=== PATIENT | male | born 1960 | race Caucasian/White ===

== ENCOUNTER 2024-08-19 10:03 | Emergency (ER) | payer MEDICAID, SELFPAY ==
[2024-08-19 10:04] VITALS: BP 148/76; PULSE 78; RESP 16; TEMP 37.1; O2SAT 97; BMI 23.0
--- NOTE | 2024-08-19 10:47 | CT_ITS ---
PROCEDURE: ABDOMEN/PELVIS WITH CONTRAST REASON FOR EXAM: 63-year-old male, fell down steps, anterior lower rib/right upper quadrant pain. TECHNIQUE: Abdomen and pelvis CT with intravenous contrast. No oral contrast. IV CONTRAST: Administered. COMPARISON: None. FINDINGS: Lung bases: The heart is normal in size. Bibasilar atelectasis. Liver: The liver is normal in size without focal hepatic mass. The major portal veins are patent. No biliary ductal dilation. Gallbladder: No radiopaque stones within the gallbladder. Spleen: Unremarkable. Pancreas: Diffuse pancreatic atrophy. Adrenals: Unremarkable. Kidneys: No hydronephrosis or nephrolithiasis. Bladder: Distended and unremarkable. Reproductive Organs: Unremarkable. Bowel: The bowel loops are normal in caliber. No ascites or pneumoperitoneum. Prior appendectomy. Lymph nodes: No suspicious lymph node enlargement. Vasculature: Moderate calcific plaque of the aortoiliac vessels. Bones: Thoracolumbar spondylosis. No acute osseous fracture. Soft tissues: Scattered radiodensities along the ventral abdominal wall, compatible with prior hernia repair. CT/Abdomen/Pelvis WITH Contrast IMPRESSION: UNREMARKABLE CONTRAST-ENHANCED CT OF THE ABDOMEN AND PELVIS One or more dose reduction techniques were used (e.g., Automated exposure contr ol, adjustment of the mA and/or kV according to patient size, use of iterative reconstruction technique). Reading Location: [id number]
--- NOTE | 2024-08-19 10:48 | RAD_ITS ---
PROCEDURE: ANKLE MIN 3 VIEWS REASON FOR EXAM: 63-year-old male, left ankle injury/pain, fell down steps. TECHNIQUE: 3 views of the left ankle COMPARISON: None FINDINGS: Comminuted mildly angulated left distal fibular fracture at the level of the syndesmosis. No obvious malleolar fracture. Probable widening of the left medial clear space. No suspicious bone lesion. No effusion. Mild left ankle soft tissue swelling. RAD/Ankle min 3 Views IMPRESSION: Esquivel type B (possibly unstable) left distal fibular fracture, with probable wi dening of the medial clear space.. Reading Location: [id number]
[2024-08-19 11:02] LABS: Absolute Lymphocyte Count 2.53 X10^3/uL (0.83-4.51); Absolute Neutrophil Count 5.8 X10^3/uL (2.0-7.7); Basophil# 0.09 X10^3/uL; Basophil% 0.9 % (0-1); Eosinophil# 0.31 X10^3/uL; Eosinophils% 3.2 % (0-5); Hematocrit 47.9 % (40-54); Hemoglobin 16.5 g/dL (13.0-16.5); Lymphocyte # 2.53 X10^3/ul (0.83-4.51); Lymphocyte % 25.8 % (19-41); Mean Corp Hgb Conc 34.4 g/dL (32-36); Mean Corpuscular Hgb 32.6 pg (27.0-32.0); Mean Corpuscular Volume 94.7 fL (80-94); Mean Platelet Vol. 10.4 fl (6.2-12.0); Monocyte# 1.08 X10^3/uL; NRBC Flagged by Analyzer 0 % (0-5); Neutrophil # 5.76 X10^3/uL (2.7-7.7); Neutrophil % 58.8 % (47-70); Platelet Count 201 K/mm3 (150-450); RBC Distribution Width CV 13.7 % (11.6-14.6); RBC Distribution Width SD 47.8 fl (35.1-43.9); Red Blood Count 5.06 M/mm3 (4.6-6.2); White Blood Count 9.8 K/mm3 (4.4-11.0)
[2024-08-19 11:18] LABS: Alcohol, Blood (Medical)-Serum < 3.0 mg/dL
[2024-08-19 11:19] LABS: AST(SGOT) 20 U/L (15-37); Alanine Aminotransfer ALT/SGPT 32 U/L (16-61); Albumin, Serum 3.5 g/dL (3.2-5.0); Alkaline Phosphatase 79 U/L (45-117); Anion Gap 7 (5-15); BUN 12 mg/dL (7-18); BUN/Creat Ratio 10.3 RATIO (10-20); Bilirubin, Direct 0.07 mg/dL (0.00-0.30); Calcium,Total 9.3 mg/dL (8.5-10.1); Chloride 107 mmol/L (98-107); Creatinine, Serum 1.17 mg/dL (0.70-1.30); EST Glomerular Filtration Rate 67 mL/min (>60); Est Glom Filt Rate - Afr Amer 81 mL/min (>60); Estimated Creatinine Clearance 70.19 ml/min; Globulin 3.9 g/dL (2.2-4.2); Glucose 143 mg/dL (74-106); Potassium 4.1 mmol/L (3.5-5.1); Protein, Total 7.4 g/dL (6.4-8.2); Sodium Level 140 mmol/L (136-145)
[2024-08-19] MEDS: Morphine 4 MG/ML Syringe IV (11:25)
[2024-08-19] MEDS: Ondansetron 4 MG/2 ML Vial IV (11:25)
--- NOTE | 2024-08-19 11:27 | EX.ED.GENINJ ---
HPI History of Present Illness Chief Complaint: Fall Detail of Chief Complaint: Patient fell twice last evening. This occurred at 99 Informant: patient and friend Onset/Context/Timing Onset: Today (99) Mechanism/Context: Blunt Injury and Fall (Fell down the last 3 steps going to the basement) Location of pain/injuries: Left ankle and - (Anterior lower ribs right costal margin and right upper quadrant) Quality of Pain: Burning and Throbbing Current Severity: Mild Maximum Severity: Severe Worsened by: Unable to bear weight. And pain right upper quadrant Relieved by: Nothing Associated Symptoms Associated Symptoms: Positive for Loss of function and Inability to ambulate; Negative for Parasthesias, Weakness, Loss of consciousness or Amnesia Narrative Narrative: Patient is a 63-year-old male. He was admitting to drinking. Initially states he has a little. Then he admitted to 1 pint of Civo a week. Apparently missed stepped third from the bottom. Ran into a brick wall. States he developed pain in his chest upper abdomen. He then slipped and fell again injuring his ankle. He is not been able to bear weight since the injury. He denies head trauma. Nu[place] loss of conscious. He is on no antithrombotic or anticoagulant. He denies bruising easily. He denies liver problems. Prior similar symptoms: No Recent Illness/Hospitalization: No PFSH PFSH Medical History no medical history no medical history Home Medications ?Medication ?Instructions ?Recorded ?Last Taken ?Type oxycodone-acetaminophen 5 mg-325 1 tab PO Q6H PRN PRN pain 5 days 08/19/24 Unknown Rx mg tablet #20 TABLETS Allergy/AdvReac Type Severity Reaction Status Date / Time No Known Allergies Allergy Verified 08/19/24 10:04 Family History no significant family his no significant family history Surgical History no surgical history no surgical history Social History (Updated 08/19/24 @ 12:[address] River Blackburn MD) Smoking Status: Current every day smoker tobacco type: cigarettes alcohol intake: current alcohol intake frequency: 0-2 drinks per day substance use type: does not use ROS ROS ED Constitutional Constitutional ED: Denies chills, fever(s) or subjective Eyes Eyes: Denies blurry vision or change in vision Cardiovascular Cardiovascular: Reports chest pain Respiratory/Chest Respiratory/Chest: Denies cough, dyspnea or dyspnea on exertion Gastrointestinal Gastrointestinal: Reports abdominal pain; Denies diarrhea, melena, nausea or vomiting Genitourinary Genitourinary ED: Denies hematuria Musculoskeletal Musculoskeletal: Denies arthralgias, back pain, myalgias or neck pain Integumentary Denies rash Neurologic Neurologic: Denies headache(s) Endocrine Endocrinology: Denies cold intolerance or heat intolerance Hematologic/Lymphatic Hematologic/Lymphatic: Denies easy bruising EXAM Physical Exam Const Vital Signs: 08/19/24 10:04 08/19/24 10:18 08/19/24 12:04 Temperature 98.7 F Temperature Source Oral Pulse Rate 78 89 Respiratory Rate 16 16 Respiratory Effort Normal Non-Labored Blood Pressure 148/76 H 124/78 H Blood Pressure Mean 100 93 Pulse Ox 97 98 Oxygen Delivery Method Room Air Room Air Room Air Positive well nourished and well developed Constitutional Narrative: Patient appears uncomfortable. Vital signs are marked for an elevated blood pressure. General Appearance ED: well developed HEENT Reports TM's clear HEENT Narrative: No clinical signs of basilar skull fracture. atraumatic; Negative for tenderness Nose: Negative for septum abnormal Tympanic Membrane ED: Yes TM's clear Eyes PERRL and EOMs intact bilaterally Neck full ROM General: Negative for tenderness Chest Wall inspection of chest normal and palpation of chest normal Chest Narrative: There is significant tenderness over the lower ribs mid clavicular line to posterior axillary line on the right. He has significant tenderness right costal margin and right upper quadrant. He has percussion tenderness in the right upper quadrant. There is no obvious bruising noted. Resp normal respiratory effort and clear to auscultation bilaterally Cardio regular rhythm, S1 normal heart sound, S2 normal heart sound and no murmurs Rate: regular rate GI normal to inspection, nondistended, normoactive bowel sounds, non-distended and no masses; Negative for non-tender Palpation: soft and tender RUQ Back/Spine normal to inspection and no thoracic nor lumbar tenderness Extremity Negative for normal to inspection or full ROM Extremity Narrative: There is obvious swelling with pain ovation over the lateral malleolus and over the deltoid ligament/medial malleolus. There is no pain ovation of the base of fifth metatarsal. There is bruising consistent with injury occurring several hours prior to presentation. DP and PT pulse are palpable. Neuro oriented x3, CN's II-XII intact bilaterally and moves all extremities Rony Coma Scale: document GCS findings Spontaneous Obeys Commands Oriented 15 Sensorium / Orientation: alert Plantar Reflex: Downgoing: bilateral Psych mental status grossly normal and thought process normal Skin no rashes or lesions noted, no wounds, skin turgor normal and no jaundice PROC Procedures Lower Extremity Splints Lower Extremity Splint: Plaster, Stirrup and - (Posterior short leg) Splint Fabrication: Fabricated Location: Left MDM MDM MDM Narrative Medical decision making narrative: Because patient has significant tenderness to right upper quadrant and took a fall down several steps we will obtain CT of the abdomen pelvis to assess for hepatic injury, fractured ribs, pneumothorax, hemothorax doubt renal contusion. X-ray of the ankle to determine if patient has a single bone versus multi bone fracture. He meets criteria for x-ray based on [place] ankle rule. Blood work was obtained to assess H&H, white count, renal function and since he admits to drinking daily alcohol level. Patient was medicated initially with 4 of Zofran and 4 of morphine. Patient required more morphine. Lab Data Attestation: I reviewed the patient's lab results. Lab results narrative: CBC is unremarkable. Basic metabolic panel is unremarkable. Liver enzymes are normal. Glucose is slightly elevated at 143 with a normal CO2 anion gap. Alcohol is nondetected. Labs: Laboratory Results - last 24 hr 08/19/24 10:50 WBC 9.8 RBC 5.06 Hgb 16.5 Hct 47.9 MCV 94.7 H MCH 32.6 H MCHC 34.4 RDW Std Deviation 47.8 H RDW Coeff of Pauly 13.7 Plt Count 201 MPV 10.4 Immature Gran % (Auto) 0.300 Neut % (Auto) 58.8 Lymph % (Auto) 25.8 Osborne % (Auto) 11.0 H Eos % (Auto) 3.2 Baso % (Auto) 0.9 Absolute Neuts (auto) 5.8 Absolute Lymphs (auto) 2.53 Nucleated RBC % 0 Sodium 140 Potassium 4.1 Chloride 107 Carbon Dioxide 26.0 Anion Gap 7 BUN 12 Creatinine 1.17 Estim Creat Clear Calc 70.19 Est GFR (MDRD) Af Amer 81 Est GFR (MDRD) Non-Af 67 BUN/Creatinine Ratio 10.3 Glucose 143 H Calcium 9.3 Total Bilirubin 0.20 Direct Bilirubin 0.07 AST 20 ALT 32 Alkaline Phosphatase 79 Total Protein 7.4 Albumin 3.5 Globulin 3.9 Ethyl Alcohol < 3.0 Radiography Chest X-Ray - ED: Read by ED Physician (Three-view x-ray of the left wrist reveals a spiral Esquivel B type distal fibular fracture with widening of the mortise. No other abnormality noted.) Diagnostic Testing: Clinical Impression(s) from Imaging Studies Abdomen/Pelvis CT 08/19/24 10:47 IMPRESSION: UNREMARKABLE CONTRAST-ENHANCED CT OF THE ABDOMEN AND PELVIS One or more dose reduction techniques were used (e.g., Automated exposure control, adjustment of the mA and/or kV according to patient size, use of iterative reconstruction technique). Reading Location: [facility] Ankle X-Ray 08/19/24 10:48 IMPRESSION: Esquivel type B (possibly unstable) left distal fibular fracture, with probable widening of the medial clear space.. Reading Location: [facility] CT of the abdomen and pelvis reveals no obvious lower rib fractures, pneumothorax, pneumoperitoneum, liver injury or kidney injury. Awaiting formal read by radiologist, [id number] Management Discussion w/another healthcare provider: Qualitative Executive Researcher (Spoke with Dr. Kaba on-call for podiatry. He would like patient in a posterior and sugar-tong splint. Crutches nonweightbearing. Call office on Tuesday for follow-up for surgery.) Discharge Plan Triage Chief Complaint: Fall ED Provider: River Blackburn Dx/Rx/DC Orders Clinical Impression: Fall down stairs, Ankle fracture, left, Acute traumatic injury of chest wall, Blunt abdominal trauma, Alcohol use, Tobacco use, Elevated blood-pressure reading without diagnosis of hypertension Instructions: ED Ankle Fracture Prescriptions: New oxycodone-acetaminophen 5-325 mg tablet 1 tab PO Q6H PRN PRN (Reason: pain) 5 Days Qty: 20 0RF Primary Care Provider: Emiliano Palomares Referrals: Emiliano Palomares MD [Primary Care Provider] - Activity Restrictions/Additional Instructions: 1. Must keep splint absolute clean and dry 2. Apply ice to your left ankle 6-10 times a day 3. Must elevate your ankle. Toes must be above your nose. 4. Call Dr. Kaba's office tomorrow for office visit to discuss treatment options Print Language: Dutch Disposition Disposition: Home, Self Care
[2024-08-19 12:04] VITALS: BP 124/78; PULSE 89; RESP 16; O2SAT 98
[2024-08-19] MEDS: morphine 8 MG/ML Syringe 4 MG IV ×2 (12:24→13:10)
[2024-08-19] MEDS: fentaNYL 100 MCG/2 ML Ampul 50 MCG IV (13:23)
[2024-08-19 14:00] VITALS: BP 117/81; PULSE 78; RESP 16; O2SAT 98
[2024-08-19] MEDS: oxyCODONE 5 MG Tablet PO (14:02)
[2024-08-19 14:48] VITALS: BP 134/78; PULSE 64; RESP 18; TEMP 36.6; O2SAT 99
== END 2024-08-19 14:49 | disposition home or self-care (01) ==
PROVIDERS: Emergency Provider Emergency Medicine; PCP Surgery Vascular Surgery; Visit Provider Emergency Medicine
DX: S82.832A Other fracture of upper and lower end of left fibula, initial encounter for closed fracture (principal); S29.9XXA Unspecified injury of thorax, initial encounter; S39.91XA Unspecified injury of abdomen, initial encounter; W10.8XXA Fall (on) (from) other stairs and steps, initial encounter; R03.0 Elevated blood-pressure reading, without diagnosis of hypertension; F10.90 Alcohol use, unspecified, uncomplicated; F17.210 Nicotine dependence, cigarettes, uncomplicated
CPT/HCPCS: 29515; 73610; 74177; 80048; 80076; 82077; 85025; 93005; 96374; 96375; 96376; 99285; Q9967; A4216; J2405

== ENCOUNTER 2024-08-31 11:26 | Day surgery (SDC) | payer MEDICAID, SELFPAY ==
[2024-08-31] VITALS (9 sets, daily range): BP systolic 113–131; BP diastolic 75–97; PULSE 80–89; RESP 14–18; TEMP 36.3–36.9; O2SAT 95–99; BMI 22.3
[2024-08-31] MEDS: 0.9% Normal Saline (1000mL) 1,000 ML 15 ML IV (11:50)
--- NOTE | 2024-08-31 12:00 | RAD_ITS ---
PROCEDURE: ANKLE 2 VIEWS REASON FOR EXAM: Open reduction and internal fixation of left fibular fracture. TECHNIQUE: Intraoperative imaging provided. COMPARISON: Comparison is made with prior study dated August 19, 2024. FINDINGS: Successful open reduction and internal fixation of the distal fibular fracture. RAD/Ankle 2 Views IMPRESSION: Successful open reduction and internal fixation of the distal fibular fracture. Reading Location: [facility]
--- NOTE | 2024-08-31 12:19 | PCM.DC ---
Discharge Instructions Diet Discharge Diet: No restrictions DC O2, CPAP, BIPAP needs Home O2 Discharge instructions: No Dressing / Incision Discharge Activity: May Drive (May drive once no longer taking narcotic medication.) and May Shower (May shower with cast bag covering intact to left leg to keep dressings clean, dry, and intact. Must also be seated on shower chair during shower.) Weight Bearing Status: No weight bearing (Please remain nonweightbearing to the left lower extremity with the assistance of crutches) Keep extremity elevated above heart level: Left Leg (Elevate left lower extremity at all times rest for postoperative edema control) Dressing / Incision Call your doctor if you observe: Fever of 101 or Higher, Shortness of breath, Chest pain, Calf discomfort and Uncontrolled pain Change Dressing in: do not change dressing Remove Dressing in: leave in place till F/U (Do not change dressing. Leave dressing in place until follow-up as physician will change dressing at first postoperative appointment.) Cleanse incision/area with: Do not get Incision Wet and Keep Dressing Clean & Dry (Keep all dressings clean, dry, and intact to the left lower extremity) Follow Up Care Please Follow Up With: Davis Kaba DPM When: Patient has first postoperative appointment with me in office early next week Test Results: Test results from this visit will be discussed in further detail at your follow-up appointment, if applicable. Discharge Plan Admission Attending Provider: Davis Kaba Primary Care Provider: Emiliano Palomares Instructions Print Language: Vietnamese Discharge Orders/Prescriptions Prescriptions: New doxycycline hyclate 100 mg capsule 100 mg PO DAILY Qty: 10 0RF aspirin 325 mg tablet 325 mg PO DAILY Qty: 20 0RF oxycodone-acetaminophen 5-325 mg tablet 1 tab PO Q6H PRN (Reason: pain) 7 Days Qty: 32 0RF No Action oxycodone-acetaminophen 5-325 mg tablet 1 tab PO Q6H PRN PRN (Reason: pain) 5 Days Qty: 20 0RF ibuprofen [Advil] 200 mg tablet 200 mg PO Q4H Referrals / Follow Up: Emiliano Palomares MD [Primary Care Provider] - Disposition Disposition (needs filled in before D/C Order can be placed): Home, Self Care
--- NOTE | 2024-08-31 12:29 | PRE.ANES_ITS ---
ASA Classification* ASA Classification ASA Classification: 3 Assessment & Plan Anesthesia* Anesthesia Assessment Anesthesia Assessment: Discussed sedation and/or anesthesia options, risks, benefits, and alternatives with patient/parents/legal guardian/POA. Questions invited. The patient/parents/legal guardian/POA seems to understand and agrees to proceed with anesthesia plan. Reviewed the physical assessment, medical history, allergy history and patient home medications list prior to surgery/procedure/anesthetic and documented any changes. Performed airway and anesthesia risk assessments. Anesthesia Type Anesthesia Type: General and Block (Patient is consented for pain block.) History Source History Obtained from:: Patient and Chart Anesthesia Focused Assessment* Temperature: 98.4 F Pulse Rate: 80 Blood Pressure: 131/81 Respiratory Rate: 16 Pulse Ox: 95 Oxygen Delivery Method: Room Air Airway Assessment Mouth opens: >3 cm Mallampati Score: II Teeth Condition: Dentures (Patient has full upper and lower dentures. They are out.) Neck Range of motion (ROM): Limited ROM (Somewhat decreased extension secondary to neck injury.) Focused Labs Anesthesia Preop lab: CBC WBC 9.8 K/mm3 (4.4-11.0) 08/19/24 10:50 08/19/24 RBC 5.06 M/mm3 (4.6-6.2) 08/19/24 10:50 08/19/24 Hgb 16.5 g/dL (13.0-16.5) 08/19/24 10:50 08/19/24 Hct 47.9 % (40-54) 08/19/24 10:50 08/19/24 Plt Count 201 K/mm3 (150-450) 08/19/24 10:50 08/19/24 CHEMISTRY Potassium 4.1 mmol/L (3.5-5.1) 08/19/24 10:50 08/19/24 Sodium 140 mmol/L (136-145) 08/19/24 10:50 08/19/24 BUN 12 mg/dL (7-18) 08/19/24 10:50 08/19/24 Creatinine 1.17 mg/dL (0.70-1.30) 08/19/24 10:50 08/19/24 Glucose 143 mg/dL (74-106) H 08/19/24 10:50 08/19/24 COAG Pre-Assessment Diagnosis/Proposed Procedure Planned Operative Procedure(s): OPEN REDUCTION INTERAL FIXATION OF THE LEFT FIBULAR FRACTURE WITH POSSIBLE REPAIR OF SYNDESMOSIS Anesthesia History Anesthesia History - precision millwright: Anesthesia History - precision millwright Hx Hospitalization No 08/28/24 15:22 Any Problems With Anesthesia Yes: HARD TO BE PUT TO SLEEP 08/28/24 15:22 Cholinesterase deficiency No 08/28/24 15:22 You/Your Family Experience No 08/28/24 15:22 fever (hyperthermia) with Relationship Recent Exposure to Contagious No 08/31/24 11:44 Disease Does patient have nerve No 08/28/24 15:22 stimulator Patient instructed to have device shut off --Does patient have Pacemaker No 08/31/24 11:44 or ICD? When Was Last Pacemaker Check QUESTION #4 FULL TEXT: You/Your Family Experience fever (hyperthermia) with Anesthesia Last Oral Intake Last Oral intake: Last Oral Intake NPO since 09:00 08/31/24 11:44 Meds taken in AM with sips of water? Meds patient instructed to take am of surgery Any additional information?: Yes NPO since: 09:00 (Patient had a cup of black coffee at 9 AM.) Meds taken in AM with sips of water?: No PONV PONV - precision millwright: PONV - precision millwright Female No 08/28/24 15:22 HX of Motion Sickness No 08/28/24 15:22 HX of N/V After Surgery No 08/28/24 15:22 Non-Smoker No 08/28/24 15:22 Duration of Surgery greater Yes 08/28/24 15:22 than 60 minutes Number of Risk Factors 1 08/28/24 15:22 PONV Score Low Risk 08/28/24 15:22 Height & Weight Height & Weight: Anesthesia: Height & Weight Height 5 ft 11 in 08/31/24 11:44 Weight: 72.575 kg 08/31/24 11:44 Body Mass Index (BMI) 22.3 08/31/24 11:44 Respiratory Assessment Respiratory Assessment - precision millwright: Respiratory Tract Infection Hx - precision millwright Hx Respiratory Tract Infection No 08/28/24 15:22 STOP Sleep Apnea STOP Sleep Apnea - precision millwright: STOP Sleep Apnea - precision millwright Hx Hypertension No 08/28/24 15:22 Hx Sleep Apnea No 08/28/24 15:22 CPAP BIPAP Do you snore loudly (louder No 08/28/24 15:22 than talking or can be heard Do you often feel tired/ No 08/28/24 15:22 fatigued/ sleepy during daytime? Has anyone observed you stop No 08/28/24 15:22 breathing during sleep? STOP Results Negative 08/28/24 15:22 QUESTION #5 FULL TEXT : Do you snore loudly (louder than talking or can be heard through closed doors)? 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 Specify any problems Hx of Preganancy in last 3 N/A 08/28/24 15:22 Months Nurse Filling Out Transfusion [id number] 08/28/24 15:22 & Questions: Date: 08/28/24 08/28/24 15:22 Time: 15:31 08/28/24 15:22 Patient unable to answer at this time (ie. confused, unrespo /Reproduction History /Reproductive History - precision millwright: /Reproductive Hx- precision millwright Hx Now No 08/28/24 15:22 Gestational Age (in weeks): EDC: Hx Hx Para Hx Section SAB No 08/28/24 15:22 Active Medications Active Medications: Current Medications Generic Name Dose Route Start Last Admin Trade Name Freq PRN Reason Stop Dose Admin Cefazolin Sodium 2 gm/ N/A 20 mls @ 400 mls/hr 08/31/24 13:00 IV 08/31/24 13:02 PREOP ONE Sodium Chloride 1,000 mls @ 15 mls/hr 08/31/24 11:35 08/31/24 11:50 IV 09/06/24 00:54 15 mls/hr .Q48H BAUTISTA Administration Protocol [facility] Medical History Wears dentures Wears glasses Alcohol use Smoker Rib pain Home Medications ?Medication ?Instructions ?Recorded ?Last Taken ?Type oxycodone-acetaminophen 5 mg-325 1 tab PO Q6H PRN PRN pain 5 days 08/19/24 Unknown Rx mg tablet #20 TABLETS ibuprofen 200 mg tablet (Advil) 200 mg PO Q4H 08/28/24 08/29/24 History aspirin 325 mg tablet 325 mg PO DAILY #20 tabs Unknown Rx doxycycline hyclate 100 mg capsule 100 mg PO DAILY #10 caps 08/31/24 Unknown Rx oxycodone-acetaminophen 5 mg-325 1 tab PO Q6H PRN pain 7 days #32 08/31/24 Unknown Rx mg tablet tabs Allergy/AdvReac Type Severity Reaction Status Date / Time No Known Allergies Allergy Verified 08/31/24 11:43 Surgical History (Updated 08/31/24 @ 12:[address] Sunny Cruz MD) Inguinal hernia S/P appendectomy Social History Smoking Status: Current every day smoker (Patient did not smoke today.) tobacco type: cigarettes alcohol intake: current alcohol intake frequency: 0-2 drinks per day substance use type: does not use Review of Systems (Anesthesia) ROS Narrative System reviewed and no additional complaints, except as documented.
[2024-08-31] MEDS: Cefazolin 2 GM in Syringe IV (14:12)
--- NOTE | 2024-08-31 16:18 | PCM.POST.ANE ---
Anesthesia: Postop Eval I Current Vital Signs Temperature: 97.5 F Pulse Rate: 86 Blood Pressure: 114/75 Respiratory Rate: 18 Pulse Ox: 96 Oxygen Delivery Method: Room Air Assessment Airway patent: Yes Spontaneous unlabored respirations: Yes Mental status: Awake and Calm nausea: No Vomiting: No Anesthesia Complication: No Fluid Hydration Crystalloid volume administer (ml): 1,400 Total IV fluid infused: 1,400 Progress Note Anesthesia document: Postop Eval 1 completed: Yes
--- NOTE | 2024-08-31 16:20 | RAD_ITS ---
PROCEDURE: ANKLE MIN 3 VIEWS REASON FOR EXAM: Status post ORIF of the distal fibular fracture. TECHNIQUE: 3 views of the left ankle COMPARISON: Comparison is made with prior study dated 02/20/2025. FINDINGS: Satisfactory reduction of the distal fibula fracture. RAD/Ankle min 3 Views IMPRESSION: Satisfactory reduction of the distal fibular fracture. Reading Location: [facility]
--- NOTE | 2024-08-31 16:57 | PCM.OPRPT ---
Problems Associated Problem List Diagnoses (1) Displaced fracture of lateral malleolus of left fibula, initial encounter for closed fracture: (2) Pain in left lower leg: (3) Nicotine dependence, unspecified, uncomplicated: (4) Alcohol use: Operative Report (Standard) Operative Information Date of Procedure: 08/31/24 Pre-Operative Diagnosis: 1. Displaced Fibular Fracture/Lateral Malleolar Fracture Left Ankle 2. Pain Left Leg Post-Operative Diagnosis: 1. Displaced Fibular Fracture/Lateral Malleolar Fracture Left Ankle 2. Pain Left Leg Surgery/Procedure Performed: 1. ORIF Left Fibular Fracture with FibuLock Nail 2. Application of AO splint left lower extremity assembler brazer: Yes Hat Presser: Dr. Jordan Quintero, DPM PGY-1 Tasks completed by housing assistant: Closing and Implanting device (screw placement) Type of Anesthesia: General/Regional (Popliteal block performed by anesthesia team) RN Documented Start/Stop Times: Operation Date: 08/31/24 13:00 Case Time Into Pre-Op 08/31/24 11:32 Out of Pre-Op 08/31/24 13:45 Anesthesia Start 08/31/24 13:59 Into Room 08/31/24 13:59 Procedure Start 08/31/24 14:26 Procedure End 08/31/24 16:02 Anesthesia End 08/31/24 16:12 Out of Room 08/31/24 16:12 Into Recovery 08/31/24 16:15 Out of Recovery 08/31/24 16:42 Into Phase II Recovery 08/31/24 16:43 Procedure Start Time: 14:26 Procedure Stop Time: 16:02 Select all DRAINS/GRAFTS/IMPLANTS that apply: Implanted device Implanted device details: Arthrex FibuLock Nail 3.0 x 130mm, Left; 2.7mm cortical screw x 3 - 14mm x2 and 24mm x1 Estimated Blood Loss: < 3mL Specimen collected: No Description of surgery: HPI/indication: This is a 63-year-old male who presented to office to 08/22/2024 with displaced left fibular fracture. He was seen in the ED at [facility] on 08/19/2024 after falling down his stairs in his basement late Tuesday night/early Tuesday morning around 1 AM. He did tell the ED physician at the time that he had been drinking prior to the fall and does smoke cigarettes daily. Radiographs were obtained in the ED demonstrating displaced SER 2/Esquivel B ankle fracture of the lateral malleolus. I was physician on-call at time of injury and discussed the case with the ED physician. He underwent closed reduction and was placed into a sugar-tong cast, dispensed crutches and was instructed to remain nonweightbearing to the left lower extremity. Patient had been compliant with the nonweightbearing status and in office updated radiographs were obtained demonstrating maintained reduction of his displaced fibular fracture. I discussed with the patient in office the need for surgical fixation of his fracture as this is an unstable pattern and would pose future complications if not surgically fixed. Patient does agree and is willing to proceed forward with the nonelective surgical intervention. I discussed the surgery in great detail with the patient. Discussed the typical postoperative recovery. Discussed the risks and complications with the patient. Advised the patient the risks include but are not limited to the following: Pain, continued pain, complex regional pain syndrome, deformity, continued deformity, recurrence, overcorrection, under correction, numbness/neuritis, swelling, scarring, poor cosmetic result, bleeding, need for further surgery/procedures, painful hardware, symptomatic hardware, fracture, nonunion, delayed union, nonhealing/delayed healing, dehiscence, infection, blood clot, allergic reaction, transfer lesion, postoperative arthritis, weakness, shoe gear problems, inability to walk, inability to wear shoes, stroke, heart attack, addiction to pain medication, loss of function, loss of limb, loss of life. Patient expressed understanding of these and was able to repeat these back. Surgical consent was signed at patient's free will. No promises were given. No guarantees were made. He underwent medical clearance by PCP. All diagnostic data was reviewed prior to entering the OR. He was scheduled to undergo ORIF of displaced fibular fracture of the left ankle at [facility] on 08/31/2024. Patient was seen prior to surgery and operative limb was signed. Procedure: Under mild sedation patient was brought into the operating placed on the table in supine position. Popliteal block was then performed by the anesthesia team prior to surgical intervention. Patient was secured to table with safety belt. Following induction of general anesthetic a blanket bump was placed under the left hip and the left leg was elevated via a blanket bump. Pneumatic thigh tourniquet was placed about the patient's left thigh. The foot/leg was scrubbed, prepped, and draped in the usual aseptic manner. Esmarch bandage was utilized to exsanguinate the foot/leg and leg was elevated and the pneumatic thigh tourniquet was inflated to 300 mmHg. At this time attention was directed to the left leg at the lateral ankle where fluoroscopy was utilized to confirm level of the fracture and for incision placement. It is noted on fluoroscopic imaging that there is a displaced SER 2/Esquivel B fracture of the distal fibula at the level of the ankle mortise. Digits were covered utilizing sterile Coban prior to incision placement. A linear incision was made overlying the distal portion of the lateral malleolus utilizing a #15 blade. Incision was deepened via sharp and blunt dissection. Care was taken to identify and retract all vital neurovascular structures and protected throughout the duration of the case. Periosteum was then incised at the fracture site and the fracture was debrided/evacuated of hematoma and small osseous fragments utilizing a curette. Fracture site was then flushed with copious amounts of normal sterile saline. Next, a fracture reduction clamp was utilized to reduce fracture and was viewed in multiple fluoroscopic views. With temporary reduction in place a guidewire was inserted from distal to proximal down the fibular canal utilizing fluoroscopy for guidance. Utilizing AO principle and manufacture guidelines an Arthrex FibuLock Nail 3.0 x 130 mm was inserted into the left fibula. Next, the anchor system was deployed proximally in the distal nail was locked into position utilizing 2.7 mm cortical screws following AO principle. Screws placed laterally through the intramedullary nail via FibuLock guide were 2.7x 14 mm cortical screw x 2. Following lateral screw placement A to P screw was placed through the fibular nail utilizing 2.7 x 24 mm cortical screw. Site was again flushed with copious amounts of normal sterile saline. Next, a hook test was utilized to test syndesmotic instability under live fluoroscopy and none was noted. Final fluoroscopic images were obtained in multiple views confirming successful reduction of the previous displaced fibular fracture. The deep tissues were then closed utilizing 2-0 Vicryl. The subcutaneous tissue closed utilizing a 4-0 Monocryl. The skin was then reapproximated utilizing 3-0 Prolene in simple interrupted fashion. Pneumatic thigh tourniquet was deflated and a prompt hyperemic response was noted to the digits of the left foot. Incision site was then dressed utilizing Betadine soaked Adaptic, 4 x 4 gauze, Kerlix, Webril cast padding, 4 inch Kendrick wrap, and 6 inch Kendrick wrap. A well molded AO splint was then applied to the left lower extremity and anchored with a 4 inch and 6 inch Kendrick wrap and modified Griffin compression fashion. Patient tolerated the anesthesia and procedure well and was transported to PACU with vital signs stable and vascular status intact to the left foot. Immediate postoperative films were obtained in PACU and reviewed prior to leaving. Patient was given discharge instructions outlining postoperative care. He is to continue to remain nonweightbearing to the left lower extremity with the assistance of crutches. He is also to continue to elevate lower extremity at all times of rest for postoperative edema control. He is to keep all dressings clean, dry, and intact to the left lower extremity and utilize cast bag when showering while seated on shower chair to remain compliant with nonweightbearing and dry dressing status. He will take all postoperative medication as instructed. He will then follow with me in office for postoperative care next week. Surgical Findings: See operative note for findings Complications Complications: No Admit VTE Documentation VTE Present on Admission: No VTE Mechan Device Prophylaxis: SCD's VTE Pharm Prophylaxis ordered?: Yes
--- NOTE | 2024-08-31 18:43 | POSTOPAN2_ITS ---
Anesthesia Postop Eval I Sum Postop Eval Completion status Anesthesia document: Postop Eval 1 completed: Yes Anesthesia Postop Eval I Summary Anesthesia Postop Eval I Summary: Anesthesia Postop Eval I: Assessment Summary Airway patent Yes 08/31/24 16:19 [email or web address] Spontaneous unlabored Yes 08/31/24 16:19 APPRAISER [email or web address] respirations Mental status Awake,Calm 08/31/24 16:19 APPRAISER [email or web address] nausea No 08/31/24 16:19 APPRAISER [email or web address] Vomiting No 08/31/24 16:19 APPRAISER [email or web address] Anesthesia Postop Eval I: Fluid Summary Crystalloid volume administer 1,400 08/31/24 16:19 APPRAISER [email or web address] (ml) Colloids volume administered ( ml) Blood Product volume administered (ml) Total IV fluid infused 1,400 08/31/24 16:19 APPRAISER [email or web address] Anesthesia Postop Eval I: Summary Notes Anesthesia Complication No 08/31/24 16:19 APPRAISER [email or web address] Anesthesia Complication Comment: Post-operative progress note Anesthesia: Postop Eval II Evaluation Mental status: Awake and Calm Pain Level: 1 nausea: No Vomiting: No Complications Anesthesia Complication: No
--- NOTE | 2024-08-31 18:43 | PCM.POSTANE2 ---
Anesthesia Postop Eval I Sum Postop Eval Completion status Anesthesia document: Postop Eval 1 completed: Yes Anesthesia Postop Eval I Summary Anesthesia Postop Eval I Summary: Anesthesia Postop Eval I: Assessment Summary Airway patent Yes 08/31/24 16:19 RELEASE OF INFORMATION [email or web address] Spontaneous unlabored Yes 08/31/24 16:19 RELEASE OF INFORMATION [email or web address] respirations Mental status Awake,Calm 08/31/24 16:19 RELEASE OF INFORMATION [email or web address] nausea No 08/31/24 16:19 RELEASE OF INFORMATION [email or web address] Vomiting No 08/31/24 16:19 RELEASE OF INFORMATION [email or web address] Anesthesia Postop Eval I: Fluid Summary Crystalloid volume administer 1,400 08/31/24 16:19 RELEASE OF INFORMATION [email or web address] (ml) Colloids volume administered ( ml) Blood Product volume administered (ml) Total IV fluid infused 1,400 08/31/24 16:19 RELEASE OF INFORMATION [email or web address] Anesthesia Postop Eval I: Summary Notes Anesthesia Complication No 08/31/24 16:19 RELEASE OF INFORMATION [email or web address] Anesthesia Complication Comment: Post-operative progress note Anesthesia: Postop Eval II Evaluation Mental status: Awake and Calm Pain Level: 1 nausea: No Vomiting: No Complications Anesthesia Complication: No
== END 2024-08-31 17:35 | disposition home or self-care (01) ==
LOC: SDC 11:27 → AC 11:28
PROVIDERS: PCP Surgery Vascular Surgery; Referring Provider Student in an Organized Health Care Education/Training Program; Visit Provider Student in an Organized Health Care Education/Training Program
PROC: (CPT 27792; principal; 2024-08-31 12:40)
DX: S82.62XA Displaced fracture of lateral malleolus of left fibula, initial encounter for closed fracture (principal); W00.1XXA Fall from stairs and steps due to ice and snow, initial encounter; Y92.038 Other place in apartment as the place of occurrence of the external cause; F17.210 Nicotine dependence, cigarettes, uncomplicated; F10.90 Alcohol use, unspecified, uncomplicated
CPT/HCPCS: 27792; 64450; 73600; 73610; 76000; C1713; J2405

== ENCOUNTER → 2024-09-27 | Outpatient (CLI) | payer MEDICAID, SELFPAY | END | disposition home or self-care (01) | LOC: LABSPEC 16:38 | PROVIDERS: PCP Surgery Vascular Surgery; Visit Provider Student in an Organized Health Care Education/Training Program | DX: L97.222 Non-pressure chronic ulcer of left calf with fat layer exposed (principal) | CPT/HCPCS: 87070; 87077; 87186; 87205 ==

== ENCOUNTER 2024-10-25 10:30 | Outpatient (RCR) | payer MEDICAID, SELFPAY ==
[2024-10-11 10:58] VITALS: BP 132/86; PULSE 76; RESP 16; TEMP 36.6
--- NOTE | 2024-10-11 13:42 | PCM.WC.HP ---
History of Present Illness Date of Service: 10/11/24 Chief Complaint: Left lateral ankle ulceration History of Wound: Patient is a 63-year-old male who presents to the wound care center for continued care of his left lateral lower extremity ulceration secondary to dehiscence of surgical wound related to venous insufficiency/varicosity in the regional area. He did undergo ORIF of the left lateral malleolus on 08/31/2024 at [facility]. Due to continued edema and varicose vein he did experience irritation of this vein around the surgical site which did lead to dehiscence at the most distal portion of the incision site. He did undergo 3 weeks of local wound care prior to presentation to the wound center on 10/11/2024. At that time Denise was being applied with serial debridement performed weekly. There was also cultures obtained demonstrating E. coli and he had completed course of oral doxycycline and is finishing oral ciprofloxacin. He does state that the site is tender and does cause some discomfort if continued irritation is present. He does attempt to elevate lower extremity at times of rest to aid in his edema control. He denies N/V/F/chills. Denies further complaints. [facility] Medical History (Updated 10/11/24 @ 17:[address] Davis Kaba, DANIELLA) Wears dentures Wears glasses Alcohol use Smoker Rib pain Home Medications ?Medication ?Instructions ?Recorded ?Last Taken ?Type ibuprofen 200 mg tablet (Advil) 200 mg PO Q4H 08/28/24 08/29/24 History doxycycline hyclate 100 mg capsule 100 mg PO DAILY #10 caps 08/31/24 Unknown Rx ciprofloxacin HCl 500 mg tablet 500 mg PO BID 10/11/24 Unknown History gabapentin 100 mg capsule 100 mg PO TID 10/11/24 Unknown History Allergy/AdvReac Type Severity Reaction Status Date / Time No Known Allergies Allergy Verified 10/11/24 11:23 Surgical History (Updated 08/31/24 @ 12:[address] Sunny Cruz MD) Inguinal hernia S/P appendectomy Social History Smoking Status: Current every day smoker tobacco type: cigarettes alcohol intake: current alcohol intake frequency: 0-2 drinks per day substance use type: does not use ROS Constitutional Constitutional: Denies chills, fatigue or fever(s) Eyes Eyes: Denies blurry vision, change in vision or double vision ENT HEENT: Denies dysphagia, nasal congestion or nasal discharge Cardiovascular Cardiovascular: Denies chest pain, claudication or palpitations Respiratory/Chest Respiratory/Chest: Denies cough, shortness of breath at rest or wheezing Gastrointestinal Gastrointestinal: Denies abdominal pain, constipation, diarrhea, nausea or vomiting Genitourinary Genitourinary: Denies dysuria, hematuria or urinary urgency Musculoskeletal Musculoskeletal: Denies joint pain, joint stiffness or joint swelling Integumentary Integumentary: Denies jaundice, lesions, pruritus or rash Neurologic Neurologic: Denies dizziness, numbness or seizures Psychiatric Psychiatric: Denies anxiety or depression Endocrine Endocrinology: Denies cold intolerance or heat intolerance Hematologic/Lymphatic Hematologic/Lymphatic: Denies easy bleeding or easy bruising Vital Signs Vital Signs Vital Signs: 10/11/24 10:58 Temperature 97.8 F Temperature Source Temporal Pulse Rate 76 Respiratory Rate 16 Blood Pressure 132/86 H Blood Pressure Mean 101 Blood Pressure Source Monitor Physical Exam Const alert, oriented x3 and no apparent distress General Appearance: cooperative HEENT normocephalic Eyes General Eye: normal appearance of both eyes Neck General: normal visual inspection Lymph Lymphatic: no lymphadenopathy noted and no lymphedema noted Resp normal respiratory effort Cardio regular rate and regular rhythm Extremity no calf tenderness Extremity Narrative: Left lower extremity: Vascular: DP and PT pulses palpable. CFT is less than 4 seconds in digits. Normal temperature gradient. Hair growth is diminished to lower legs/absent to digits. Neurologic: Epicritic sensation intact. No focal deficits noted. Musculoskeletal: Muscle strength 5 of 5 age-appropriate. No pain to palpation of calf. There is some tenderness to palpation around the ulcerative rim at the distal incision site. Still some residual tenderness to palpation overlying the fracture site at the lateral malleolus. Dermatologic: There are varicosities noted to the lower extremity with some edema noted. Cicatrix to the lateral ankle with distal portion of dehiscence secondary to irritated varicose vein. Ulceration at the distal aspect of the incision site is full-thickness with mixed fibrogranular layer. There is improvement in localized erythema about the ulcerative site from previous visit. No palpable fluctuance/bogginess, no visible abscess formation, no malodor, no purulent drainage. Skin no rashes or lesions noted Neuro moves all extremities Debridement Note Debridement Note Wound debrided: Left lateral ankle Laterality: Left Wound Grade/Stage: Gilmore stage I Type of Debridement: Excisional debridement Anesthesia Used: 5% Lidocaine Gel Depth: Down to and including healthy tissue and in the subcutaneous layer Percentage of wound debrided: 100 Instrument Used: 3mm curette Tissue Removed: Fibrous, devitalized subcutaneous, biofilm, slough Severity: Fat Layer Exposed Amount of bleeding with debridement: Mild Bleeding Controlled with: Compression and gauze Patient tolerated procedure: Patient tolerated procedure well Post-Debridement Measurements and Additional Note: Post-Debridement Measurements/Treatment - Nurse 1 - General Ulcer Assessment Start: 10/11/24 10:58 Freq: Status: Active Protocol: JAIRON Activity Type Activity Date Activity User E-sign Co-sign Detail Recorded Client Recorded Date Recorded By Document 10/11/24 10:58 DL [id number] 10/11/24 11:17 DL 10/11/24 10:58 - Today's Visit Information Type of service Initial Visit Arrival Mode Ambulatory Transfer Assistance None Patient Identification Verified (Name & Yes ) Patient Requires Transmission-Based No Precautions Vital Signs Temperature (97.8 F-99.1 F) 97.8 F Temperature Source Temporal Pulse Rate (60-100) 76 Pulse Location Monitor Respiratory Rate (12-18) 16 Respiratory rate source Observation Blood Pressure (90/60-120/80) 132/86 H Blood Pressure Mean 101 Source Monitor History Since Last Visit- (Skip if this is Patient's initial visit) Left Footwear Removable Cast Walker/Walking Boot Right Footwear Regular Shoe Pain Scale: 0-10 Numeric Is Patient Pain Free? Yes Communication Assessment Preferred language Kiswahili Able to Read Yes Able to Write Yes Communication Tools None Right Hearing Abillity Normal Left Hearing Abillity Normal Visual Assistive Devices Glasses Teaching Assessment Preferences Demonstration Barriers to Learning None Readiness To Learn Fair Willingness to Engage in Self Management Med Activies Readiness to Engage in Self Management Med Activities Anxiety Level Anxious Cooperation Cooperative Perception Coherent Interest in Health Problem Asks Questions Education Importance Acknowledges Need Does Patient Smoke tobacco or other Yes substances Smoking Status Current every day smoker Is Patient Diabetic No Functional Assessment Recent Decline in Ability to Perform Ambulation Culture/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 Paperboard Boxes Estimator to contact place of baptism No Teaching: Wound Center Dressing Your Wound -Person Taught Patient *Welcome to the Wound Center -Person Taught Patient WC - Nurse 1 - General Ulcer Measurement Start: 10/11/24 10:58 Freq: Status: Active Protocol: Activity Type Activity Date Activity User E-sign Co-sign Detail Recorded Client Recorded Date Recorded By Document 10/11/24 10:58 KYLAH [id number] 10/11/24 11:17 DL 10/11/24 10:58 Wound Center Nurse 1 #1 L LAT ANKLE -Current Size (cm) - Length 1.6 -Current Size (cm) - Width 0.7 -Current Size (cm) - Depth 0.5 -Total Square Cm 1.12 -Photo Taken Yes -Classification - Thickness Full Thickness without Exposed Support Structure -Exudate Amt Medium -Exudate Type Serosanguineous -Wound Margin Distinct, Outline Attached -Granulation Amt Medium (34-66%) -Granulation Quality Red -Necrosis Amt Medium (34-66%) -Necrotic Tissue Type Adherent Slough -Structure Exposed N/A -Texture (Viry-wound Skin Appearance) Scarring -Moisture (Viry-wound Skin Appearance) No Abnormality -Color (Viry-wound Skin Appearance) No Abnormality -Temperature (Viry-wound Skin No Abnormality Appearance) (Pt Warm) -Tenderness on Palpation (Viry-wound No Skin Appearance) -Ulcer Cleansing Soap and Water -Foul Odor after Cleansing No -Anesthetic Used 5% Lidocaine Gel KAT - Nurse 2 - General Ulcer CM Notes Start: 10/11/24 10:58 Freq: Status: Active Protocol: Activity Type Activity Date Activity User E-sign Co-sign Detail Recorded Client Recorded Date Recorded By Document 10/11/24 11:32 [facility] [id number] 10/11/24 11:48 [facility] 10/11/24 11:32 Wound Center Nurse 2 -Time 11:33 -Correct Patient Yes -Correct Side, Site, Position Yes -Correct Procedure Yes -Procedure Performed Yes -Type of Procedure Debridement -Clinical Debridement Subcutaneous -Tissue Removed Subcutaneous -Post Debridement (cm) - Length 1.5 -Post Debridement (cm) - Width 0.7 -Post Debridement (cm) - Depth 0.6 -Total Square (Post) (cm) 1.05 -Area of Debridement (cm) - Length 1.5 -Area of Debridement (cm) - Width 0.7 -Total Square (Area) (cm) 1.05 -Tunneling No -Undermining/Tunneling No -Circular Undermining No -Wound/Ulcer Outcome Not Healed -Ulcer Cleansing Rinsed/ Irrigated with Saline -Foul Odor after Cleansing No -Injectable Lidocaine w/ Epi (%) 1 -Injectable Lidocaine w/ Epi (mls) 4 -Bleeding Controlled with Pressure -Treatment Response Procedure Tolerated Well -Debridement - Subq, 1st 20sq cm Yes Pain Scale: 0-10 Numeric Is Patient Pain Free? Yes WC - Nurse 3 - General Ulcer D/C NN Start: 10/11/24 10:58 Freq: Status: Active Protocol: Activity Type Activity Date Activity User E-sign Co-sign Detail Recorded Client Recorded Date Recorded By Document 10/11/24 12:00 DL [id number] 10/11/24 12:03 DL 10/11/24 12:00 Wound Care Center Nurse 3 #1 L LAT ANKLE -Ulcer Cleansing Rinsed/ Irrigated with Saline -Primary Dressing Applied C Hydrogel, Collagen Powder ,Silicone Border Foam 4x4 -Other Covering SHARON -Collagen Powder 1 -Hydrogel 1 -Silicone Border Foam 4x4 1 Treatment Response Procedure Tolerated Well Pain Scale: 0-10 Numeric Is Patient Pain Free? No WC - Visit Discharge Discharge Condition Stable Ambulatory Status Ambulatory, Crutches Transportation Private Auto Assessment/Plan Assessment/Plan (1) Displaced fracture of lateral malleolus of left fibula, subsequent encounter for closed fracture with routine healing: CODE(S): S82.62XD - Displaced fracture of lateral malleolus of left fibula, subsequent encounter for closed fracture with routine healing (2) Non-pressure chronic ulcer of left ankle with fat layer exposed: CODE(S): L97.322 - Non-pressure chronic ulcer of left ankle with fat layer exposed (3) Venous insufficiency (chronic) (peripheral): CODE(S): I87.2 - Venous insufficiency (chronic) (peripheral) (4) Localized edema: CODE(S): R60.0 - Localized edema PLAN: Plan Patient seen and evaluated He is s/p ORIF of the distal fibula with intramedullary wyatt fixation. DOS 08/31/2024. POD #41 Predebridement measurement: 1.4 cm x 0.6 cm x 0.6 cm Ulceration was debrided as noted in the clinical panel above. Postdebridement measurement 1.5 cm x 0.7 cm x 0.6 cm. Collagen powder and hydrogel applied to the ulcerative bed and dressed with [place]on SAP dressing. He is to change dressing daily. There is noted improvement in his erythema around the ulcerative bed from his previous visit in office on oral antibiotic, ciprofloxacin 500 mg twice daily (stop date 10/18/2024). Patient did have cultures obtained in office which demonstrate E. coli. He did finish his oral antibiotic of doxycycline prior to starting the ciprofloxacin. Discussed continuing to elevate lower extremities at all times of rest to aid in edema control. Discussed keeping site clean and dry and to wash with soap and water separate from his shower. He is to keep dressing intact while showering to prevent infection. We will seek approval of advanced wound care product, EpiFix as his ulceration has been caused by an irritated varicose vein along his incision site in addition to edema from chronic venous stasis. Discussed continued proper diet with protein intake recommended to aid in wound healing. Cuco supplementation/boost supplementation have been recommended. He is also currently taking gabapentin 100 mg 3 times daily for associated nerve pain in addition to ibuprofen 800 mg every 4 to 6 hours for wound pain. Rx ibuprofen 800 mg prescription written today with 3 refills given. I did discuss signs and symptoms of infection with the patient today. Discussed that if he notices increasing redness around the ulcerative site, purulent drainage from the ulcerative bed, increasing foul odor from the ulcerative site, or if he experiences fever greater than 101 degree accompanied by nausea, vomiting, chills that these are signs of a progressing infection and he should report to the ED for IV antibiotics and for further evaluation. He voices understanding of this today. Currently patient is healing the fracture site well and is still ambulating in CAM boot. Plan will be to transition patient back to shoe gear as he is roughly 6 weeks out from placement of his intramedullary wyatt. I have also discussed with the patient the need for smoking cessation to aid in his healing. The following work up and care recommendations were made: Dressing: Collagen powder topped with hydrogel and dressed with Mendon SAP dressing. He is to change dressing daily Wash: May wash site with soap and water that is separate from routine shower/shower rag. Tissue growth optimization: Collagen powder and hydrogel Offload: SAP XL dressing and do not place pressure on lateral ankle Vascular: Does have palpable pedal pulses do not feel vascular is impacting healing status. Do feel that venous stasis has contributed to ulcerative site. Edema: Mild edema secondary to chronic venous stasis will continue to elevate lower extremity at all times of rest and eventual transition to a compression stocking. Infection: There is resolving erythema around the ulcerative site currently taking ciprofloxacin as stated above. Pain: Currently on ibuprofen 800 mg and gabapentin 300 mg daily as stated above. Host factors: Chronic venous stasis, nicotine dependence I answered all the patient's questions. To return to the wound healing center in 1 week or call sooner if the patient has any questions or concerns.
--- NOTE | 2024-10-15 14:33 | WC ---
PHOTO 10/11/24 LEFT LATERAL ANKLE
[2024-10-18 11:45] VITALS: BP 133/92; PULSE 82; RESP 18; TEMP 36.7
--- NOTE | 2024-10-18 12:49 | PN.PCM_ITS ---
History of Present Illness Date of Service: 10/18/24 Chief Complaint: Left lateral ankle ulceration History of Wound: Patient is a 63-year-old male who presents to the wound care center for continued care of his left lateral lower extremity ulceration secondary to dehiscence of surgical wound related to venous insufficiency/varicosity in the regional area. He did undergo ORIF of the left lateral malleolus on 08/31/2024 at [facility]. Due to continued edema and varicose vein he did experience irritation of this vein around the surgical site which did lead to dehiscence at the most distal portion of the incision site. He did undergo 3 weeks of local wound care prior to presentation to the wound center on 10/11/2024. At that time Denise was being applied with serial debridement performed weekly. There was also cultures obtained demonstrating E. coli and he had completed course of oral doxycycline and is finishing oral ciprofloxacin. He does state that the site is tender and does cause some discomfort if continued irritation is present. He does attempt to elevate lower extremity at times of rest to aid in his edema control. He denies N/V/F/chills. Denies further complaints. Subjective Subjective Patient is a 63-year-old male who returns to the wound care center today for continued healing of his left ankle ulceration. He continues to take his oral antibiotic as instructed. Has continue to change dressings as instructed. Denies constitutional symptoms. Denies further complaints. Objective Data Objective Data Vital Signs: Vital Signs Temp Pulse Resp BP 98.1 F 82 18 133/92 H 10/18/24 11:45 10/18/24 11:45 10/18/24 11:45 10/18/24 11:45 Physical Exam Const alert, oriented x3 and no apparent distress General Appearance: cooperative HEENT normocephalic Eyes General Eye: normal appearance of both eyes Neck General: normal visual inspection Lymph Lymphatic: no lymphadenopathy noted and no lymphedema noted Resp normal respiratory effort Cardio regular rate and regular rhythm Extremity no calf tenderness Extremity Narrative: Left lower extremity: Vascular: DP and PT pulses palpable. CFT is less than 4 seconds in digits. Normal temperature gradient. Hair growth is diminished to lower legs/absent to digits. Neurologic: Epicritic sensation intact. No focal deficits noted. Musculoskeletal: Muscle strength 5 of 5 age-appropriate. No pain to palpation of calf. There is some tenderness to palpation around the ulcerative rim at the distal incision site. Still some residual tenderness to palpation overlying the fracture site at the lateral malleolus. Dermatologic: There are varicosities noted to the lower extremity with some edema noted. Cicatrix to the lateral ankle with distal portion of dehiscence secondary to irritated varicose vein. Ulceration at the distal aspect of the incision site is full-thickness with mixed fibrogranular layer. There is improvement in localized erythema about the ulcerative site from previous visit. No palpable fluctuance/bogginess, no visible abscess formation, no malodor, no purulent drainage. Skin no rashes or lesions noted Neuro moves all extremities Debridement Note Debridement Note Wound debrided: Left lateral ankle Laterality: Left Wound Grade/Stage: Gilmore stage I Type of Debridement: Excisional debridement Anesthesia Used: 5% Lidocaine Gel Depth: Down to and including healthy tissue and in the subcutaneous layer Percentage of wound debrided: 100 Instrument Used: 3mm curette Tissue Removed: Fibrous, devitalized subcutaneous, biofilm, slough Severity: Fat Layer Exposed Amount of bleeding with debridement: Mild Bleeding Controlled with: Compression and gauze Patient tolerated procedure: Patient tolerated procedure well Post-Debridement Measurements and Additional Note: Post-Debridement Measurements/Treatment - Nurse 1 - General Ulcer Assessment Start: 10/11/24 10:58 Freq: Status: Active Protocol: JAIRON Activity Type Activity Date Activity User E-sign Co-sign Detail Recorded Client Recorded Date Recorded By Document 10/11/24 10:58 DL [id number] 10/11/24 11:17 DL Document 10/18/24 11:45 RB [id number] 10/18/24 11:52 RB 10/11/24 10/18/24 10:58 11:45 - Today's Visit Information Type of service Initial Visit Follow-up Visit (Physician/[employer] ) Arrival Mode Ambulatory Ambulatory, Crutches Transfer Assistance None None Patient Identification Verified (Name & Yes Yes ) Patient Requires Transmission-Based No No Precautions Vital Signs Temperature (97.8 F-99.1 F) 97.8 F 98.1 F Temperature Source Temporal Temporal Pulse Rate (60-100) 76 82 Pulse Location Monitor Monitor Respiratory Rate (12-18) 16 18 Respiratory rate source Observation Observation Blood Pressure (90/60-120/80) 132/86 H 133/92 H Blood Pressure Mean (mm Hg) 101 105 Source Monitor Monitor Position Semi-Fowlers Blood Pressure Location Left Arm History Since Last Visit- (Skip if this is Patient's initial visit) Have you changed medications since your No last visit? Any new allergies or adverse reactions No Had a fall/change in ADL's that may No increase risk of falls Signs or symptoms of abuse and/or No neglect since last visit Have you been in the hospital since your No last visit? Has dressing in place as prescribed Yes Has compression in place as prescribed Yes Has offloadiing in place as prescribed N/A Experienced any changes in pain level or No management Left Footwear Removable Cast Multipodus Walker/Walking Splint/Boot Boot Right Footwear Regular Shoe Regular Shoe Pain Scale: 0-10 Numeric Is Patient Pain Free? Yes Yes LLE -Description Aching -Intensity 7 -Duration (hours) Acute -Pain Behavior Irritability -Pain Aggravating Factors ADL's -Alleviating Factors/Interventions Medication -Effectiveness of Alleviating Factor/ Moderately Intervention effective Communication Assessment Preferred language Danish Able to Read Yes Able to Write Yes Communication Tools None Right Hearing Abillity Normal Left Hearing Abillity Normal Visual Assistive Devices Glasses Teaching Assessment Preferences Demonstration Barriers to Learning None Readiness To Learn Fair Willingness to Engage in Self Management Med Activies Readiness to Engage in Self Management Med Activities Anxiety Level Anxious Cooperation Cooperative Perception Coherent Interest in Health Problem Asks Questions Education Importance Acknowledges Need Does Patient Smoke tobacco or other Yes substances Smoking Status Current every day smoker Is Patient Diabetic No Functional Assessment Recent Decline in Ability to Perform Ambulation Culture/Adventism/Youtuber Cultural/Adventism Needs that may affect No Treatment Plan Would you allow 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 Youtuber to contact place of christian No Teaching: Wound Center Dressing Your Wound -Person Taught Patient *Welcome to the Wound Center -Person Taught Patient WC - Nurse 1 - General Ulcer Measurement Start: 10/11/24 10:58 Freq: Status: Active Protocol: Activity Type Activity Date Activity User E-sign Co-sign Detail Recorded Client Recorded Date Recorded By Document 10/11/24 10:58 DL [id number] 10/11/24 11:17 DL Document 10/18/24 11:45 RB [id number] 10/18/24 11:52 RB 10/11/24 10/18/24 10:58 11:45 Wound Center Nurse 1 #1 L LAT ANKLE -Combined with other wound No -Current Size (cm) - Length 1.6 1 -Current Size (cm) - Width 0.7 0.5 -Current Size (cm) - Depth 0.5 0.7 -Total Square Cm 1.12 0.5 -Photo Taken Yes -Tunneling No -Undermining/Tunneling No -Circular Undermining No -Classification - Thickness Full Thickness without Exposed Support Structure -Exudate Amt Medium -Exudate Type Serosanguineous -Wound Margin Distinct, Outline Attached -Granulation Amt Medium (34-66%) Medium (34-66%) -Granulation Quality Red [place] -Slough/Fibrin Yes -Necrosis Amt Medium (34-66%) Small (1-33%) -Necrotic Tissue Type Adherent Slough Adherent Slough -Structure Exposed N/A N/A -Texture (Viry-wound Skin Appearance) Scarring Assessed, Scarring -Moisture (Viry-wound Skin Appearance) No Abnormality Assessed -Color (Viry-wound Skin Appearance) No Abnormality Assessed -Temperature (Viry-wound Skin No Abnormality No Abnormality Appearance) (Pt Warm) (Pt Warm) -Tenderness on Palpation (Viry-wound No No Skin Appearance) -Ulcer Cleansing Soap and Water Wound Cleanser -Foul Odor after Cleansing No No -Anesthetic Used 5% Lidocaine 5% Lidocaine Gel Gel Lower Limb Edema Present Yes Left Calf (cm) 36 Left Ankle (cm) 22.5 WC - Nurse 2 - General Ulcer CM Notes Start: 10/11/24 10:58 Freq: Status: Active Protocol: Activity Type Activity Date Activity User E-sign Co-sign Detail Recorded Client Recorded Date Recorded By Document 10/11/24 11:32 [facility] [id number] 10/11/24 11:48 [facility] Document 10/18/24 12:23 [facility] [id number] 10/18/24 12:33 [facility] 10/11/24 10/18/24 11:32 12:23 Wound Center Nurse 2 #1 L LAT ANKLE -Time 11:33 12:23 -Correct Patient Yes Yes -Correct Side, Site, Position Yes Yes -Correct Procedure Yes Yes -Procedure Performed Yes Yes -Type of Procedure Debridement Debridement -Clinical Debridement Subcutaneous Subcutaneous -Tissue Removed Subcutaneous Subcutaneous -Post Debridement (cm) - Length 1.5 1.4 -Post Debridement (cm) - Width 0.7 0.7 -Post Debridement (cm) - Depth 0.6 0.6 -Total Square (Post) (cm) 1.05 0.98 -Area of Debridement (cm) - Length 1.5 1.4 -Area of Debridement (cm) - Width 0.7 0.7 -Total Square (Area) (cm) 1.05 0.98 -Tunneling No No -Undermining/Tunneling No No -Circular Undermining No No -Wound/Ulcer Outcome Not Healed Not Healed -Ulcer Cleansing Rinsed/ Rinsed/ Irrigated with Irrigated with Saline Saline -Foul Odor after Cleansing No No -Bioengineered Tissue Yes -Type of Bioengineered Tissue Epifix 18mm Disc -Expiration Date 02/01/29 -Product Lot Number [id number] -Percent Used 100 -Lot number of Saline Used [id number] -Injectable Lidocaine w/ Epi (%) 1 -Injectable Lidocaine w/ Epi (mls) 4 -Bleeding Controlled with Pressure Pressure -Treatment Response Procedure Procedure Tolerated Well Tolerated Well -Debridement - Subq, 1st 20sq cm Yes No -Apply Skin Sub - 1st 25 sq cm - Feet 1 -Epifix 18mm Disc Application 1-4 3 Pain Scale: 0-10 Numeric Is Patient Pain Free? Yes Yes - Nurse 3 - General Ulcer D/C NN Start: 10/11/24 10:58 Freq: Status: Active Protocol: Activity Type Activity Date Activity User E-sign Co-sign Detail Recorded Client Recorded Date Recorded By Document 10/11/24 12:00 DL [id number] 10/11/24 12:03 DL Document 10/18/24 12:42 DL [id number] 10/18/24 12:44 DL 10/11/24 10/18/24 12:00 12:42 Wound Care Center Nurse 3 #1 L LAT ANKLE -Ulcer Cleansing Rinsed/ Irrigated with Saline -Foul Odor after Cleansing No -Primary Dressing Applied C Hydrogel, Collagen Powder ,Silicone Border Foam 4x4 -Other Dressing epifix -Primary Dressing Covered/Secured with Dry Gauze & Roll Gauze, Secured with Tape -Other Covering KENDRICK kendrick -Collagen Powder 1 -Hydrogel 1 -Silicone Border Foam 4x4 1 Treatment Response Procedure Procedure Tolerated Well Tolerated Well Pain Scale: 0-10 Numeric Is Patient Pain Free? No Yes - Visit Discharge Discharge Condition Stable Stable Ambulatory Status Ambulatory, Ambulatory, Crutches Crutches Transportation Private Auto Private Auto Assessment/Plan Assessment/Plan (1) Displaced fracture of lateral malleolus of left fibula, subsequent encounter for closed fracture with routine healing: CODE(S): S82.62XD - Displaced fracture of lateral malleolus of left fibula, subsequent encounter for closed fracture with routine healing (2) Non-pressure chronic ulcer of left ankle with fat layer exposed: CODE(S): L97.322 - Non-pressure chronic ulcer of left ankle with fat layer exposed (3) Venous insufficiency (chronic) (peripheral): CODE(S): I87.2 - Venous insufficiency (chronic) (peripheral) (4) Localized edema: CODE(S): R60.0 - Localized edema PLAN: Plan Patient seen and evaluated He is s/p ORIF of the distal fibula with intramedullary wyatt fixation. DOS 08/31/2024. POD #48 Predebridement measurement: 1.3 cm x 0.6 cm x 0.6 cm Ulceration was debrided as noted in the clinical panel above. Postdebridement measurement 1.4 cm x 0.7 cm x 0.6 cm. He did undergo Dakin's wash following debridement. No signs of infection to ulcerative site. EpiFix graft #1 was applied to the base of the ulcerative site and dressed with Adaptic touch and anchored with Steri-Strips. Dry sterile dressing and 4 inch Kendrick wrap were applied for dressings. He is to change outer dressing as needed. He is otherwise to keep dressings clean, dry, and intact and to utilize cast bag when showering. He was transitioned from fracture boot to surgical shoe and may continue ambulation. There is slight improvement in ulcerative size versus previous visit. He will continue oral antibiotic, ciprofloxacin 500 mg twice daily (stop date 10/18/2024). Patient did have cultures obtained in office which demonstrate E. coli. He did finish his oral antibiotic of doxycycline prior to starting the ciprofloxacin. Discussed continuing to elevate lower extremities at all times of rest to aid in edema control. Discussed keeping site clean and dry and to wash with soap and water separate from his shower. He is to keep dressing intact while showering to prevent infection. He was approved for application of advanced wound care product, EpiFix as his ulceration has been caused by an irritated varicose vein along his incision site in addition to edema from chronic venous stasis. Will continue applying. Discussed continued proper diet with protein intake recommended to aid in wound healing. Cuco supplementation/boost supplementation have been recommended. He is also currently taking gabapentin 100 mg 3 times daily for associated nerve pain in addition to ibuprofen 800 mg every 4 to 6 hours for wound pain. Rx ibuprofen 800 mg prescription written 10/11/24 with 3 refills given. I did discuss signs and symptoms of infection with the patient today. Discussed that if he notices increasing redness around the ulcerative site, purulent drainage from the ulcerative bed, increasing foul odor from the ulcerative site, or if he experiences fever greater than 101 degree accompanied by nausea, vomiting, chills that these are signs of a progressing infection and he should report to the ED for IV antibiotics and for further evaluation. He voices understanding of this today. Currently patient is healing the fracture site well and is still ambulating in CAM boot. Plan will be to transition patient back to shoe gear as he is roughly 6 weeks out from placement of his intramedullary wyatt. I have also discussed with the patient the need for smoking cessation to aid in his healing. The following work up and care recommendations were made: Dressing: EpiFix, Adaptic touch, Steri-Strips, dry sterile dressing, 4 inch Kendrick wrap. He is to change outer dressings as needed. Otherwise keep all dressings clean, dry, and intact and utilize cast bag when showering. Wash: Do not get wet Tissue growth optimization: EpiFix Offload: SAP XL dressing and do not place pressure on lateral ankle Vascular: Does have palpable pedal pulses do not feel vascular is impacting healing status. Do feel that venous stasis has contributed to ulcerative site. Edema: Mild edema secondary to chronic venous stasis will continue to elevate lower extremity at all times of rest and eventual transition to a compression stocking. Infection: There is resolving erythema around the ulcerative site currently taking ciprofloxacin as stated above. Pain: Currently on ibuprofen 800 mg and gabapentin 300 mg daily as stated above. Host factors: Chronic venous stasis, nicotine dependence I answered all the patient's questions. To return to the wound healing center in 1 week or call sooner if the patient has any questions or concerns.
[2024-10-25 10:42] VITALS: BP 125/82; PULSE 90; RESP 18
--- NOTE | 2024-10-25 10:53 | PCM.WC.PN ---
History of Present Illness Date of Service: 10/25/24 Chief Complaint: Left lateral ankle ulceration History of Wound: Patient is a 63-year-old male who presents to the wound care center for continued care of his left lateral lower extremity ulceration secondary to dehiscence of surgical wound related to venous insufficiency/varicosity in the regional area. He did undergo ORIF of the left lateral malleolus on 08/31/2024 at [facility]. Due to continued edema and varicose vein he did experience irritation of this vein around the surgical site which did lead to dehiscence at the most distal portion of the incision site. He did undergo 3 weeks of local wound care prior to presentation to the wound center on 10/11/2024. At that time Denise was being applied with serial debridement performed weekly. There was also cultures obtained demonstrating E. coli and he had completed course of oral doxycycline and is finishing oral ciprofloxacin. He does state that the site is tender and does cause some discomfort if continued irritation is present. He does attempt to elevate lower extremity at times of rest to aid in his edema control. He denies N/V/F/chills. Denies further complaints. Subjective Subjective Patient is a 63-year-old male who returns to the wound care center today for continued healing of his left ankle ulceration. He continues to take his oral antibiotic as instructed. He has left grafting product in place and change outer dressing as needed. Denies constitutional symptoms. Denies further complaints. Objective Data Objective Data Vital Signs: Vital Signs Temp Pulse Resp BP O2 Del Method 98.1 F 90 18 125/82 H Room Air 10/18/24 11:45 10/25/24 10:42 10/25/24 10:42 10/25/24 10:42 10/25/24 10:42 Oxygen Delivery Method Room Air Physical Exam Const alert, oriented x3 and no apparent distress General Appearance: cooperative HEENT normocephalic Eyes General Eye: normal appearance of both eyes Neck General: normal visual inspection Lymph Lymphatic: no lymphadenopathy noted and no lymphedema noted Resp normal respiratory effort Cardio regular rate and regular rhythm Extremity no calf tenderness Extremity Narrative: Left lower extremity: Vascular: DP and PT pulses palpable. CFT is less than 4 seconds in digits. Normal temperature gradient. Hair growth is diminished to lower legs/absent to digits. Neurologic: Epicritic sensation intact. No focal deficits noted. Musculoskeletal: Muscle strength 5 of 5 age-appropriate. No pain to palpation of calf. There is some tenderness to palpation around the ulcerative rim at the distal incision site. Still some residual tenderness to palpation overlying the fracture site at the lateral malleolus. Dermatologic: There are varicosities noted to the lower extremity with some edema noted. Cicatrix to the lateral ankle with distal portion of dehiscence secondary to irritated varicose vein. Ulceration at the distal aspect of the incision site is full-thickness with mixed fibrogranular layer. There is improvement in localized erythema about the ulcerative site from previous visit. No palpable fluctuance/bogginess, no visible abscess formation, no malodor, no purulent drainage. Skin no rashes or lesions noted Neuro moves all extremities Debridement Note Debridement Note Wound debrided: Left lateral leg Laterality: Left Wound Grade/Stage: Gilmore stage I Type of Debridement: Excisional debridement Anesthesia Used: 5% Lidocaine Gel Depth: Down to and including healthy tissue and in the subcutaneous layer Percentage of wound debrided: 100 Instrument Used: 3mm curette Tissue Removed: Fibrous, devitalized subcutaneous, biofilm, slough Severity: Fat Layer Exposed Amount of bleeding with debridement: Mild Bleeding Controlled with: Compression and gauze Patient tolerated procedure: Patient tolerated procedure well Post-Debridement Measurements and Additional Note: Post-Debridement Measurements/Treatment - Nurse 1 - General Ulcer Assessment Start: 10/11/24 10:58 Freq: Status: Active Protocol: JAIRON Activity Type Activity Date Activity User E-sign Co-sign Detail Recorded Client Recorded Date Recorded By Document 10/11/24 10:58 DL [id number] 10/11/24 11:17 DL Document 10/18/24 11:45 RB [id number] 10/18/24 11:52 RB Document 10/25/24 10:42 KW [id number] 10/25/24 10:51 KW 10/11/24 10/18/24 10/25/24 10:58 11:45 10:42 - Today's Visit Information Type of service Initial Visit Follow-up Visit Follow-up Visit (Physician/AIRFRAME DESIGN ENGINEER (Physician/AIRFRAME DESIGN ENGINEER ) ) Arrival Mode Ambulatory Ambulatory, Ambulatory, Crutches Crutches Transfer Assistance None None Patient Identification Verified (Name & Yes Yes Yes ) Patient Requires Transmission-Based No No Precautions Vital Signs Temperature (97.8 F-99.1 F) 97.8 F 98.1 F Temperature Source Temporal Temporal Pulse Rate (60-100) 76 82 90 Pulse Location Monitor Monitor Monitor Respiratory Rate (12-18) 16 18 18 Respiratory rate source Observation Observation Observation Oxygen Delivery Method Room Air Blood Pressure (90/60-120/80) 132/86 H 133/92 H 125/82 H Blood Pressure Mean (mm Hg) 101 105 96 Source Monitor Monitor Monitor Position Semi-Fowlers Semi-Fowlers Blood Pressure Location Left Arm Left Arm History Since Last Visit- (Skip if this is Patient's initial visit) Have you changed medications since your No No last visit? Any new allergies or adverse reactions No No Had a fall/change in ADL's that may No No increase risk of falls Signs or symptoms of abuse and/or No No neglect since last visit Have you been in the hospital since your No No last visit? Has dressing in place as prescribed Yes Yes Has compression in place as prescribed Yes Yes Has offloadiing in place as prescribed N/A Yes Experienced any changes in pain level or No No management Left Footwear Removable Cast Multipodus Regular Shoe Walker/Walking Splint/Boot Boot Right Footwear Regular Shoe Regular Shoe Surgical Shoe with pressure relief insole Pain Scale: 0-10 Numeric Is Patient Pain Free? Yes Yes Yes LLE -Description Aching -Intensity 7 -Duration (hours) Acute -Pain Behavior Irritability -Pain Aggravating Factors ADL's -Alleviating Factors/Interventions Medication -Effectiveness of Alleviating Factor/ Moderately Intervention effective Communication Assessment Preferred language Jordanian Able to Read Yes Able to Write Yes Communication Tools None Right Hearing Abillity Normal Left Hearing Abillity Normal Visual Assistive Devices Glasses Teaching Assessment Preferences Demonstration Barriers to Learning None Readiness To Learn Fair Willingness to Engage in Self Management Med Activies Readiness to Engage in Self Management Med Activities Anxiety Level Anxious Cooperation Cooperative Perception Coherent Interest in Health Problem Asks Questions Education Importance Acknowledges Need Does Patient Smoke tobacco or other Yes substances Smoking Status Current every day smoker Is Patient Diabetic No Functional Assessment Recent Decline in Ability to Perform Ambulation Culture/Restorationist/Central Office Operator Supervisor Cultural/Restorationist Needs that may affect No Treatment Plan Would you allow our hospital video game creator to No meet you for the purpose of spiritual/ emotional support? Central Office Operator Supervisor to contact place of alevism No Teaching: Wound Center Dressing Your Wound -Person Taught Patient *Welcome to the Wound Center -Person Taught Patient WC - Nurse 1 - General Ulcer Measurement Start: 10/11/24 10:58 Freq: Status: Active Protocol: Activity Type Activity Date Activity User E-sign Co-sign Detail Recorded Client Recorded Date Recorded By Document 10/11/24 10:58 DL [id number] 10/11/24 11:17 DL Document 10/18/24 11:45 RB [id number] 10/18/24 11:52 RB Document 10/25/24 10:42 KW [id number] 10/25/24 10:51 KW 10/11/24 10/18/24 10/25/24 10:58 11:45 10:42 Wound Center Nurse 1 #1 L LAT ANKLE -Combined with other wound No -Current Size (cm) - Length 1.6 1 1.1 -Current Size (cm) - Width 0.7 0.5 0.6 -Current Size (cm) - Depth 0.5 0.7 0.7 -Total Square Cm 1.12 0.5 0.66 -Photo Taken Yes -Tunneling No -Undermining/Tunneling No -Circular Undermining No -Classification - Thickness Full Thickness without Exposed Support Structure -Exudate Amt Medium -Exudate Type Serosanguineous -Wound Margin Distinct, Outline Attached -Granulation Amt Medium (34-66%) Medium (34-66%) Small (1-33%) -Granulation Quality [place] -Slough/Fibrin Yes -Necrosis Amt Medium (34-66%) Small (1-33%) Large (67-100%) -Necrotic Tissue Type Adherent Slough Adherent Slough Adherent Slough -Structure Exposed N/A N/A -Texture (Viry-wound Skin Appearance) Scarring Assessed, Assessed Scarring -Moisture (Viry-wound Skin Appearance) No Abnormality Assessed Assessed -Color (Viry-wound Skin Appearance) No Abnormality Assessed Assessed -Temperature (Viry-wound Skin No Abnormality No Abnormality No Abnormality Appearance) (Pt Warm) (Pt Warm) (Pt Warm) -Tenderness on Palpation (Viry-wound No No No Skin Appearance) -Ulcer Cleansing Soap and Water Wound Cleanser Soap and Water -Foul Odor after Cleansing No No No -Anesthetic Used 5% Lidocaine 5% Lidocaine 5% Lidocaine Gel Gel Gel Lower Limb Edema Present Yes Left Calf (cm) 36 Left Ankle (cm) 22.5 WC - Nurse 2 - General Ulcer CM Notes Start: 10/11/24 10:58 Freq: Status: Active Protocol: Activity Type Activity Date Activity User E-sign Co-sign Detail Recorded Client Recorded Date Recorded By Document 10/11/24 11:32 BMF [id number] 10/11/24 11:48 BMF Document 10/18/24 12:23 BMF [id number] 10/18/24 12:33 BMF Edit Result 10/18/24 12:23 BMF (1) [id number] 10/18/24 13:37 BMF (1) #1 L LAT ANKLE - Apply Skin Sub - 1st 25 sq cm - Legs => 1 - Apply Skin Sub - 1st 25 sq cm - Feet 1 => 10/11/24 10/18/24 11:32 12:23 Wound Center Nurse 2 #1 L LAT ANKLE -Time 11:33 12:23 -Correct Patient Yes Yes -Correct Side, Site, Position Yes Yes -Correct Procedure Yes Yes -Procedure Performed Yes Yes -Type of Procedure Debridement Debridement -Clinical Debridement Subcutaneous Subcutaneous -Tissue Removed Subcutaneous Subcutaneous -Post Debridement (cm) - Length 1.5 1.4 -Post Debridement (cm) - Width 0.7 0.7 -Post Debridement (cm) - Depth 0.6 0.6 -Total Square (Post) (cm) 1.05 0.98 -Area of Debridement (cm) - Length 1.5 1.4 -Area of Debridement (cm) - Width 0.7 0.7 -Total Square (Area) (cm) 1.05 0.98 -Tunneling No No -Undermining/Tunneling No No -Circular Undermining No No -Wound/Ulcer Outcome Not Healed Not Healed -Ulcer Cleansing Rinsed/ Rinsed/ Irrigated with Irrigated with Saline Saline -Foul Odor after Cleansing No No -Bioengineered Tissue Yes -Type of Bioengineered Tissue Epifix 18mm Disc -Expiration Date 02/01/29 -Product Lot Number [id number] -Percent Used 100 -Lot number of Saline Used [id number] -Injectable Lidocaine w/ Epi (%) 1 -Injectable Lidocaine w/ Epi (mls) 4 -Bleeding Controlled with Pressure Pressure -Treatment Response Procedure Procedure Tolerated Well Tolerated Well -Debridement - Subq, 1st 20sq cm Yes No -Apply Skin Sub - 1st 25 sq cm - Legs 1 -Epifix 18mm Disc Application 1-4 3 Pain Scale: 0-10 Numeric Is Patient Pain Free? Yes Yes WC - Nurse 3 - General Ulcer D/C NN Start: 10/11/24 10:58 Freq: Status: Active Protocol: Activity Type Activity Date Activity User E-sign Co-sign Detail Recorded Client Recorded Date Recorded By Document 10/11/24 12:00 DL [id number] 10/11/24 12:03 DL Document 10/18/24 12:42 DL [id number] 10/18/24 12:44 DL 10/11/24 10/18/24 12:00 12:42 Wound Care Center Nurse 3 #1 L LAT ANKLE -Ulcer Cleansing Rinsed/ Irrigated with Saline -Foul Odor after Cleansing No -Primary Dressing Applied C Hydrogel, Collagen Powder ,Silicone Border Foam 4x4 -Other Dressing epifix -Primary Dressing Covered/Secured with Dry Gauze & Roll Gauze, Secured with Tape -Other Covering KENDRICK kendrick -Collagen Powder 1 -Hydrogel 1 -Silicone Border Foam 4x4 1 Treatment Response Procedure Procedure Tolerated Well Tolerated Well Pain Scale: 0-10 Numeric Is Patient Pain Free? No Yes WC - Visit Discharge Discharge Condition Stable Stable Ambulatory Status Ambulatory, Ambulatory, Crutches Crutches Transportation Private Auto Private Auto Assessment/Plan Assessment/Plan (1) Displaced fracture of lateral malleolus of left fibula, subsequent encounter for closed fracture with routine healing: CODE(S): S82.62XD - Displaced fracture of lateral malleolus of left fibula, subsequent encounter for closed fracture with routine healing (2) Non-pressure chronic ulcer of left ankle with fat layer exposed: CODE(S): L97.322 - Non-pressure chronic ulcer of left ankle with fat layer exposed (3) Venous insufficiency (chronic) (peripheral): CODE(S): I87.2 - Venous insufficiency (chronic) (peripheral) (4) Localized edema: CODE(S): R60.0 - Localized edema PLAN: Plan Patient seen and evaluated He is s/p ORIF of the distal fibula with intramedullary wyatt fixation. DOS 08/31/2024. POD #55 Predebridement measurement: 0.8 cm x 0.6 cm x 0.6 cm Ulceration was debrided as noted in the clinical panel above. Postdebridement measurement 0.9 cm x 0.7 cm x 0.7 cm. He did undergo Dakin's wash following debridement. No signs of infection to ulcerative site. EpiFix graft #2 was applied to the base of the ulcerative site and dressed with Adaptic touch and anchored with Steri-Strips. Dry sterile dressing and 4 inch Kendrick wrap were applied for dressings. He is to change outer dressing as needed. He is otherwise to keep dressings clean, dry, and intact and to utilize cast bag when showering. He was transitioned from fracture boot to surgical shoe and may continue ambulation. There is improvement in ulcerative size versus previous visit. He will continue oral antibiotic, ciprofloxacin 500 mg twice daily (stop date 10/18/2024). Patient did have cultures obtained in office which demonstrate E. coli. He did finish his oral antibiotic of doxycycline prior to starting the ciprofloxacin. Discussed continuing to elevate lower extremities at all times of rest to aid in edema control. Discussed keeping site clean and dry and to wash with soap and water separate from his shower. He is to keep dressing intact while showering to prevent infection. He was approved for application of advanced wound care product, EpiFix as his ulceration has been caused by an irritated varicose vein along his incision site in addition to edema from chronic venous stasis. Will continue applying. Discussed continued proper diet with protein intake recommended to aid in wound healing. Cuco supplementation/boost supplementation have been recommended. He is also currently taking gabapentin 100 mg 3 times daily for associated nerve pain in addition to ibuprofen 800 mg every 4 to 6 hours for wound pain. Rx ibuprofen 800 mg prescription written 10/11/24 with 3 refills given. I did discuss signs and symptoms of infection with the patient today. Discussed that if he notices increasing redness around the ulcerative site, purulent drainage from the ulcerative bed, increasing foul odor from the ulcerative site, or if he experiences fever greater than 101 degree accompanied by nausea, vomiting, chills that these are signs of a progressing infection and he should report to the ED for IV antibiotics and for further evaluation. He voices understanding of this today. Currently patient is healing the fracture site well and now ambulating in surgical shoe. Plan will be to transition patient back to shoe gear as he is roughly 7 weeks out from placement of his intramedullary wyatt. I have also discussed with the patient the need for smoking cessation to aid in his healing. The following work up and care recommendations were made: Dressing: EpiFix, Adaptic touch, Steri-Strips, dry sterile dressing, 4 inch Kendrick wrap. He is to change outer dressings as needed. Otherwise keep all dressings clean, dry, and intact and utilize cast bag when showering. Wash: Do not get wet Tissue growth optimization: EpiFix Offload: SAP XL dressing and do not place pressure on lateral ankle Vascular: Does have palpable pedal pulses do not feel vascular is impacting healing status. Do feel that venous stasis has contributed to ulcerative site. Edema: Mild edema secondary to chronic venous stasis will continue to elevate lower extremity at all times of rest and eventual transition to a compression stocking. Infection: There is resolving erythema around the ulcerative site currently taking ciprofloxacin as stated above. Pain: Currently on ibuprofen 800 mg and gabapentin 300 mg daily as stated above. Host factors: Chronic venous stasis, nicotine dependence I answered all the patient's questions. To return to the wound healing center in 1 week or call sooner if the patient has any questions or concerns.
== END 2024-10-31 23:59 | disposition home or self-care (01) ==
LOC: WC 10:30
PROVIDERS: PCP Surgery Vascular Surgery; Referring Provider Student in an Organized Health Care Education/Training Program; Visit Provider Student in an Organized Health Care Education/Training Program
DX: T81.31XA Disruption of external operation (surgical) wound, not elsewhere classified, initial encounter (principal); L97.322 Non-pressure chronic ulcer of left ankle with fat layer exposed; I83.023 Varicose veins of left lower extremity with ulcer of ankle; S82.62XS Displaced fracture of lateral malleolus of left fibula, sequela; Y83.8 Other surgical procedures as the cause of abnormal reaction of the patient, or of later complication, without mention of misadventure at the time of the procedure; I87.2 Venous insufficiency (chronic) (peripheral); R60.0 Localized edema; F17.210 Nicotine dependence, cigarettes, uncomplicated; Z79.899 Other long term (current) drug therapy
CPT/HCPCS: 15275; 11042; 15271; 99213; Q4186; G0463

== ENCOUNTER 2024-11-29 10:45 | Outpatient (RCR) | payer MEDICAID, SELFPAY ==
[2024-11-01 00:44] VITALS: BP 125/82; PULSE 90; RESP 18; TEMP 36.7
[2024-11-01 10:58] VITALS: BP 141/87; PULSE 88; RESP 16; TEMP 37.1
--- NOTE | 2024-11-01 12:27 | PCM.WC.PN ---
History of Present Illness Date of Service: 11/01/24 Chief Complaint: Left lateral ankle ulceration History of Wound: Patient is a 63-year-old male who presents to the wound care center for continued care of his left lateral lower extremity ulceration secondary to dehiscence of surgical wound related to venous insufficiency/varicosity in the regional area. He did undergo ORIF of the left lateral malleolus on 08/31/2024 at [facility]. Due to continued edema and varicose vein he did experience irritation of this vein around the surgical site which did lead to dehiscence at the most distal portion of the incision site. He did undergo 3 weeks of local wound care prior to presentation to the wound center on 10/11/2024. At that time Denise was being applied with serial debridement performed weekly. There was also cultures obtained demonstrating E. coli and he had completed course of oral doxycycline and is finishing oral ciprofloxacin. He does state that the site is tender and does cause some discomfort if continued irritation is present. He does attempt to elevate lower extremity at times of rest to aid in his edema control. He denies N/V/F/chills. Denies further complaints. Subjective Subjective Patient is a 63-year-old male who returns to the wound care center today for continued healing of his left ankle ulceration. He finished his oral antibiotic as instructed. He has left grafting product in place and change outer dressing as needed. States he feels well overall. Denies constitutional symptoms. Denies further complaints. Objective Data Objective Data Vital Signs: Vital Signs Temp Pulse Resp BP O2 Del Method 98.8 F 88 16 141/87 H Room Air 11/01/24 10:58 11/01/24 10:58 11/01/24 10:58 11/01/24 10:58 11/01/24 10:58 Oxygen Delivery Method Room Air Physical Exam Const alert, oriented x3 and no apparent distress General Appearance: cooperative HEENT normocephalic Eyes General Eye: normal appearance of both eyes Neck General: normal visual inspection Lymph Lymphatic: no lymphadenopathy noted and no lymphedema noted Resp normal respiratory effort Cardio regular rate and regular rhythm Extremity Extremity Narrative: Left lower extremity: Vascular: DP and PT pulses palpable. CFT is less than 4 seconds in digits. Normal temperature gradient. Hair growth is diminished to lower legs/absent to digits. Neurologic: Epicritic sensation intact. No focal deficits noted. Musculoskeletal: Muscle strength 5 of 5 age-appropriate. No pain to palpation of calf. There is some tenderness to palpation around the ulcerative rim at the distal incision site. Still some residual tenderness to palpation overlying the fracture site at the lateral malleolus. Dermatologic: There are varicosities noted to the lower extremity with some edema noted. Cicatrix to the lateral ankle with distal portion of dehiscence secondary to irritated varicose vein. Ulceration at the distal aspect of the incision site is full-thickness with mixed fibrogranular layer. There is improvement in localized erythema about the ulcerative site from previous visit. No palpable fluctuance/bogginess, no visible abscess formation, no malodor, no purulent drainage. Skin no rashes or lesions noted Neuro moves all extremities Debridement Note Debridement Note Wound debrided: Left lateral leg Laterality: Left Wound Grade/Stage: Gilmore stage I Type of Debridement: Excisional debridement Anesthesia Used: 5% Lidocaine Gel Depth: Down to and including healthy tissue and in the subcutaneous layer Percentage of wound debrided: 100 Instrument Used: 3mm curette Tissue Removed: Fibrous, devitalized subcutaneous, biofilm, slough Severity: Fat Layer Exposed Amount of bleeding with debridement: Mild Bleeding Controlled with: Compression and gauze Patient tolerated procedure: Patient tolerated procedure well Post-Debridement Measurements and Additional Note: Post-Debridement Measurements/Treatment - Nurse 1 - General Ulcer Assessment Start: 11/01/24 10:58 Freq: Status: Active Protocol: KAT.[email or web address] Activity Type Activity Date Activity User E-sign Co-sign Detail Recorded Client Recorded Date Recorded By Document 11/01/24 10:58 [id number] 11/01/24 11:09 11/01/24 10:58 - Today's Visit Information Type of service 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 Any new allergies or adverse reactions No Had a fall/change in ADL's that may No increase risk of falls Signs or symptoms of abuse and/or No neglect since last visit Have you been in the hospital since your No last visit? Has dressing in place as prescribed Yes Has compression in place as prescribed Yes Has offloadiing in place as prescribed Yes Experienced any changes in pain level or No management Left Footwear Surgical Shoe with pressure relief insole Right Footwear Regular Shoe Pain Scale: 0-10 Numeric Is Patient Pain Free? Yes - Nurse 1 - General Ulcer Measurement Start: 11/01/24 10:58 Freq: Status: Active Protocol: Activity Type Activity Date Activity User E-sign Co-sign Detail Recorded Client Recorded Date Recorded By Document 11/01/24 10:58 [id number] 11/01/24 11:09 11/01/24 10:58 Wound Center Nurse 1 #1 L LAT ANKLE -Current Size (cm) - Length 1 -Current Size (cm) - Width 0.5 -Current Size (cm) - Depth 0.8 -Total Square Cm 0.5 -Date of Last Picture (Recall this 11/01/24 field) -Exudate Amt Medium -Exudate Type Serosanguineous -Wound Margin Thickened & Rolled Under -Granulation Amt Small (1-33%) -Granulation Quality [place] -Necrosis Amt Large (67-100%) -Necrotic Tissue Type Adherent Slough -Texture (Viry-wound Skin Appearance) Assessed -Moisture (Viry-wound Skin Appearance) Assessed -Color (Viry-wound Skin Appearance) Assessed, Erythema -Temperature (Viry-wound Skin No Abnormality Appearance) (Pt Warm) -Tenderness on Palpation (Viry-wound No Skin Appearance) -Ulcer Cleansing Soap and Water -Foul Odor after Cleansing No -Anesthetic Used 5% Lidocaine Gel - Nurse 2 - General Ulcer CM Notes Start: 11/01/24 10:58 Freq: Status: Active Protocol: Activity Type Activity Date Activity User E-sign Co-sign Detail Recorded Client Recorded Date Recorded By Document 11/01/24 11:17 [facility] [id number] 11/01/24 11:26 [facility] 11/01/24 11:17 Wound Center Nurse 2 -Time 11:17 -Correct Patient Yes -Correct Side, Site, Position Yes -Correct Procedure Yes -Procedure Performed Yes -Type of Procedure Debridement -Clinical Debridement Subcutaneous -Tissue Removed Subcutaneous -Post Debridement (cm) - Length 1 -Post Debridement (cm) - Width 0.6 -Post Debridement (cm) - Depth 0.5 -Total Square (Post) (cm) 0.6 -Area of Debridement (cm) - Length 1 -Area of Debridement (cm) - Width 0.6 -Total Square (Area) (cm) 0.6 -Tunneling No -Undermining/Tunneling No -Circular Undermining No -Wound/Ulcer Outcome Not Healed -Ulcer Cleansing Rinsed/ Irrigated with Saline -Foul Odor after Cleansing No -Bioengineered Tissue Yes -Type of Bioengineered Tissue Epifix 18mm Disc -Expiration Date 05/04/29 -Product Lot Number [id number] -Percent Used 100 -Lot number of Saline Used [id number] -Bleeding Controlled with Pressure -Treatment Response Procedure Tolerated Well -Debridement - Subq, 1st 20sq cm No -Apply Skin Sub - 1st 25 sq cm - Legs 1 -Epifix 18mm Disc Application 1-4 3 Pain Scale: 0-10 Numeric Is Patient Pain Free? Yes - Nurse 3 - General Ulcer D/C NN Start: 11/01/24 10:58 Freq: Status: Active Protocol: Activity Type Activity Date Activity User E-sign Co-sign Detail Recorded Client Recorded Date Recorded By Document 11/01/24 11:30 KW [id number] 11/01/24 11:33 KW 11/01/24 11:30 Wound Care Center Nurse 3 #1 L LAT ANKLE -Primary Dressing Covered/Secured with Dry Gauze & Roll Gauze, Secured with Tape LLE -Compression Wrap Kendrick Wrap -Other 4 inch Pain Scale: 0-10 Numeric Is Patient Pain Free? Yes - Visit Discharge Discharge Condition Stable Ambulatory Status Ambulatory, Crutches Transportation Private Auto Medication Reconcilliation completed & No provided to patient/care provider Clinical Summary of Care Provided Yes Assessment/Plan Assessment/Plan (1) Non-pressure chronic ulcer of left ankle with fat layer exposed: CODE(S): L97.322 - Non-pressure chronic ulcer of left ankle with fat layer exposed (2) Displaced fracture of lateral malleolus of left fibula, subsequent encounter for closed fracture with routine healing: CODE(S): S82.62XD - Displaced fracture of lateral malleolus of left fibula, subsequent encounter for closed fracture with routine healing (3) Venous insufficiency (chronic) (peripheral): CODE(S): I87.2 - Venous insufficiency (chronic) (peripheral) (4) Localized edema: CODE(S): R60.0 - Localized edema PLAN: Plan Patient seen and evaluated He is s/p ORIF of the distal fibula with intramedullary wyatt fixation. DOS 08/31/2024. POD #62 Predebridement measurement: 0.9 cm x 0.5 cm x 0.5 cm Ulceration was debrided as noted in the clinical panel above. Postdebridement measurement 1.0 cm x 0.6 cm x 0.5 cm. He did undergo Dakin's wash following debridement. No signs of infection to ulcerative site. EpiFix graft #3 was applied to the base of the ulcerative site and dressed with Adaptic touch and anchored with Steri-Strips. Dry sterile dressing and 4 inch Kendrick wrap were applied for dressings. He is to change outer dressing as needed. He is otherwise to keep dressings clean, dry, and intact and to utilize cast bag when showering. He was transitioned from fracture boot to surgical shoe and may continue ambulation. There is improvement in ulcerative size versus previous visit. He will continue oral antibiotic, ciprofloxacin 500 mg twice daily (stop date 10/18/2024). Patient did have cultures obtained in office which demonstrate E. coli. He did finish his oral antibiotic of doxycycline prior to starting the ciprofloxacin. Discussed continuing to elevate lower extremities at all times of rest to aid in edema control. Discussed keeping site clean and dry and to wash with soap and water separate from his shower. He is to keep dressing intact while showering to prevent infection. He was approved for application of advanced wound care product, EpiFix as his ulceration has been caused by an irritated varicose vein along his incision site in addition to edema from chronic venous stasis. Will continue applying. Discussed continued proper diet with protein intake recommended to aid in wound healing. Cuco supplementation/boost supplementation have been recommended. He is also currently taking gabapentin 100 mg 3 times daily for associated nerve pain in addition to ibuprofen 800 mg every 4 to 6 hours for wound pain. Rx ibuprofen 800 mg prescription written 10/11/24 with 3 refills given. I did discuss signs and symptoms of infection with the patient today. Discussed that if he notices increasing redness around the ulcerative site, purulent drainage from the ulcerative bed, increasing foul odor from the ulcerative site, or if he experiences fever greater than 101 degree accompanied by nausea, vomiting, chills that these are signs of a progressing infection and he should report to the ED for IV antibiotics and for further evaluation. He voices understanding of this today. Currently patient is healing the fracture site well and now ambulating in surgical shoe. Plan will be to transition patient back to shoe gear as he is roughly 8 weeks out from placement of his intramedullary wytat. I have also discussed with the patient the need for smoking cessation to aid in his healing. The following work up and care recommendations were made: Dressing: EpiFix, Adaptic touch, Steri-Strips, dry sterile dressing, 4 inch Kendrick wrap. He is to change outer dressings as needed. Otherwise keep all dressings clean, dry, and intact and utilize cast bag when showering. Wash: Do not get wet Tissue growth optimization: EpiFix Offload: SAP XL dressing and do not place pressure on lateral ankle Vascular: Does have palpable pedal pulses do not feel vascular is impacting healing status. Do feel that venous stasis has contributed to ulcerative site. Edema: Mild edema secondary to chronic venous stasis will continue to elevate lower extremity at all times of rest and eventual transition to a compression stocking. Infection: There is resolving erythema around the ulcerative site currently taking ciprofloxacin as stated above. Pain: Currently on ibuprofen 800 mg and gabapentin 300 mg daily as stated above. Host factors: Chronic venous stasis, nicotine dependence I answered all the patient's questions. To return to the wound healing center in 1 week or call sooner if the patient has any questions or concerns.
--- NOTE | 2024-11-02 11:54 | WC ---
PHOTO 11/01/24 LEFT ANKLE
[2024-11-08 11:12] VITALS: BP 145/79; PULSE 97; RESP 18
--- NOTE | 2024-11-08 12:04 | PN.PCM_ITS ---
History of Present Illness Date of Service: 11/08/24 Chief Complaint: Left lateral ankle ulceration History of Wound: Patient is a 63-year-old male who presents to the wound care center for continued care of his left lateral lower extremity ulceration secondary to dehiscence of surgical wound related to venous insufficiency/varicosity in the regional area. He did undergo ORIF of the left lateral malleolus on 08/31/2024 at [facility]. Due to continued edema and varicose vein he did experience irritation of this vein around the surgical site which did lead to dehiscence at the most distal portion of the incision site. He did undergo 3 weeks of local wound care prior to presentation to the wound center on 10/11/2024. At that time Janay was being applied with serial debridement performed weekly. There was also cultures obtained demonstrating E. coli and he had completed course of oral doxycycline and is finishing oral ciprofloxacin. He does state that the site is tender and does cause some discomfort if continued irritation is present. He does attempt to elevate lower extremity at times of rest to aid in his edema control. He denies N/V/F/chills. Denies further complaints. Subjective Subjective Patient is a 63-year-old male who returns to the wound care center today for continued healing of his left ankle ulceration. He has left grafting product in place and change outer dressing as needed. States he feels well overall. He states he would like the wound to heal faster. Denies constitutional symptoms. Denies further complaints. Objective Data Objective Data Vital Signs: Vital Signs Temp Pulse Resp BP O2 Del Method 98.8 F 97 18 145/79 H Room Air 11/01/24 10:58 11/08/24 11:12 11/08/24 11:12 11/08/24 11:12 11/08/24 11:12 Oxygen Delivery Method Room Air Physical Exam Const alert, oriented x3 and no apparent distress General Appearance: cooperative HEENT normocephalic Eyes General Eye: normal appearance of both eyes Neck General: normal visual inspection Lymph Lymphatic: no lymphadenopathy noted and no lymphedema noted Resp normal respiratory effort Cardio regular rate and regular rhythm Extremity Extremity Narrative: Left lower extremity: Vascular: DP and PT pulses palpable. CFT is less than 4 seconds in digits. Normal temperature gradient. Hair growth is diminished to lower legs/absent to digits. Neurologic: Epicritic sensation intact. No focal deficits noted. Musculoskeletal: Muscle strength 5 of 5 age-appropriate. No pain to palpation of calf. There is some tenderness to palpation around the ulcerative rim at the distal incision site. Still some residual tenderness to palpation overlying the fracture site at the lateral malleolus. Dermatologic: There are varicosities noted to the lower extremity with some edema noted. Cicatrix to the lateral ankle with distal portion of dehiscence secondary to irritated varicose vein. Ulceration at the distal aspect of the incision site is full-thickness with mixed fibrogranular layer. There is improvement in localized erythema about the ulcerative site from previous visit. No palpable fluctuance/bogginess, no visible abscess formation, no malodor, no purulent drainage. Skin no rashes or lesions noted Neuro moves all extremities Debridement Note Debridement Note Wound debrided: Left lateral ankle/leg Laterality: Left Wound Grade/Stage: Gilmore stage I Type of Debridement: Excisional debridement Anesthesia Used: 5% Lidocaine Gel Depth: Down to and including healthy tissue and in the subcutaneous layer Percentage of wound debrided: 100 Instrument Used: 3mm curette Tissue Removed: Fibrous, devitalized subcutaneous, biofilm, slough Severity: Fat Layer Exposed Amount of bleeding with debridement: Mild Bleeding Controlled with: Compression and gauze Patient tolerated procedure: Patient tolerated procedure well Post-Debridement Measurements and Additional Note: Post-Debridement Measurements/Treatment - Nurse 1 - General Ulcer Assessment Start: 11/01/24 10:58 Freq: Status: Active Protocol: KAT.[email or web address] Activity Type Activity Date Activity User E-sign Co-sign Detail Recorded Client Recorded Date Recorded By Document 11/01/24 10:58 [id number] 11/01/24 11:09 KW Document 11/08/24 11:12 KW [id number] 11/08/24 11:17 KW 11/01/24 11/08/24 10:58 11:12 - Today's Visit Information Type of service Follow-up Visit Follow-up Visit (Physician/PATIENT ACCESS ASSOCIATE (Physician/PATIENT ACCESS ASSOCIATE ) ) Arrival Mode Ambulatory, Ambulatory, Crutches Crutches Patient Identification Verified (Name & Yes Yes ) Vital Signs Temperature (97.8 F-99.1 F) 98.8 F Temperature Source Temporal Pulse Rate (60-100) 88 97 Pulse Location Monitor Monitor Respiratory Rate (12-18) 16 18 Respiratory rate source Observation Observation Oxygen Delivery Method Room Air Room Air Blood Pressure (90/60-120/80) 141/87 H 145/79 H Blood Pressure Mean (mm Hg) 105 101 Source Monitor Monitor Position Semi-Fowlers Semi-Fowlers Blood Pressure Location Left Arm Left Arm History Since Last Visit- (Skip if this is Patient's initial visit) Have you changed medications since your No No last visit? Any new allergies or adverse reactions No No Had a fall/change in ADL's that may No No increase risk of falls Signs or symptoms of abuse and/or No No neglect since last visit Have you been in the hospital since your No No last visit? Has dressing in place as prescribed Yes Yes Has compression in place as prescribed Yes Yes Has offloadiing in place as prescribed Yes Yes Experienced any changes in pain level or No No management Left Footwear Surgical Shoe Surgical Shoe with pressure with pressure relief insole relief insole Right Footwear Regular Shoe Regular Shoe Pain Scale: 0-10 Numeric Is Patient Pain Free? Yes Yes WC - Nurse 1 - General Ulcer Measurement Start: 11/01/24 10:58 Freq: Status: Active Protocol: Activity Type Activity Date Activity User E-sign Co-sign Detail Recorded Client Recorded Date Recorded By Document 11/01/24 10:58 KW [id number] 11/01/24 11:09 KW Document 11/08/24 11:12 KW [id number] 11/08/24 11:17 KW 11/01/24 11/08/24 10:58 11:12 Wound Center Nurse 1 #1 L LAT ANKLE -Current Size (cm) - Length 1 1 -Current Size (cm) - Width 0.5 0.5 -Current Size (cm) - Depth 0.8 0.4 -Total Square Cm 0.5 0.5 -Date of Last Picture (Recall this 11/01/24 11/08/24 field) -Exudate Amt Medium Medium -Exudate Type Serosanguineous Serosanguineous -Wound Margin Thickened & Distinct, Rolled Under Outline Attached -Granulation Amt Small (1-33%) Large (67-100%) -Granulation Quality [place] -Necrosis Amt Large (67-100%) Small (1-33%) -Necrotic Tissue Type Adherent Slough Adherent Slough -Texture (Viry-wound Skin Appearance) Assessed Assessed -Moisture (Viry-wound Skin Appearance) Assessed Assessed -Color (Viry-wound Skin Appearance) Assessed, Assessed Erythema -Temperature (Viry-wound Skin No Abnormality No Abnormality Appearance) (Pt Warm) (Pt Warm) -Tenderness on Palpation (Viry-wound No No Skin Appearance) -Ulcer Cleansing Soap and Water Soap and Water -Foul Odor after Cleansing No No -Anesthetic Used 5% Lidocaine 5% Lidocaine Gel Gel WC - Nurse 2 - General Ulcer CM Notes Start: 11/01/24 10:58 Freq: Status: Active Protocol: Activity Type Activity Date Activity User E-sign Co-sign Detail Recorded Client Recorded Date Recorded By Document 11/01/24 11:17 [facility] [id number] 11/01/24 11:26 BM Document 11/08/24 11:22 [facility] [id number] 11/08/24 11:37 [facility] 11/01/24 11/08/24 11:17 11:22 Wound Center Nurse 2 #1 L LAT ANKLE -Time 11:17 11:22 -Correct Patient Yes Yes -Correct Side, Site, Position Yes Yes -Correct Procedure Yes Yes -Procedure Performed Yes Yes -Type of Procedure Debridement Debridement -Clinical Debridement Subcutaneous Muscle / Fascia -Tissue Removed Subcutaneous Muscle,Fascia -Post Debridement (cm) - Length 1 1.1 -Post Debridement (cm) - Width 0.6 0.5 -Post Debridement (cm) - Depth 0.5 0.5 -Total Square (Post) (cm) 0.6 0.55 -Area of Debridement (cm) - Length 1 1.1 -Area of Debridement (cm) - Width 0.6 0.5 -Total Square (Area) (cm) 0.6 0.55 -Tunneling No No -Undermining/Tunneling No No -Circular Undermining No No -Wound/Ulcer Outcome Not Healed Not Healed -Ulcer Cleansing Rinsed/ Rinsed/ Irrigated with Irrigated with Saline Saline -Foul Odor after Cleansing No No -Bioengineered Tissue Yes Yes -Type of Bioengineered Tissue Epifix 18mm Epifix 18mm Disc Disc -Expiration Date 05/04/29 06/03/29 -Product Lot Number [id number] -Percent Used 100 100 -Lot number of Saline Used [id number] -Injectable Lidocaine w/ Epi (%) 1 -Injectable Lidocaine w/ Epi (mls) 10 -Bleeding Controlled with Pressure Pressure -Treatment Response Procedure Procedure Tolerated Well Tolerated Well -Offloading Yes -Type of Offloading Other -Other Type of Offloading left surgical shoe -Assistive Device(s) Crutches -Debridement - Subq, 1st 20sq cm No -Debridement - Muscle / Fascia, 1st No 20sq cm -Apply Skin Sub - 1st 25 sq cm - Legs 1 1 -Epifix 18mm Disc Application 1-4 3 3 Pain Scale: 0-10 Numeric Is Patient Pain Free? Yes Yes - Nurse 3 - General Ulcer D/C NN Start: 11/01/24 10:58 Freq: Status: Active Protocol: Activity Type Activity Date Activity User E-sign Co-sign Detail Recorded Client Recorded Date Recorded By Document 11/01/24 11:30 KW [id number] 11/01/24 11:33 KW Document 11/08/24 11:53 KW [id number] 11/08/24 11:54 KW Document 11/08/24 11:59 KW [id number] 11/08/24 11:59 KW 11/01/24 11/08/24 11/08/24 11:30 11:53 11:59 Wound Care Center Nurse 3 #1 L LAT ANKLE -Primary Dressing Applied AMD Dressing 4x4 -Other Dressing betadine with pt janay -Primary Dressing Covered/Secured with Dry Gauze & Dry Gauze & Roll Gauze, Roll Gauze, Secured with Secured with Tape Tape -AMD Dressing 4x4 2 LLE -Compression Wrap Kendrick Wrap Kendrick Wrap -Other 4 inch 4 IN Pain Scale: 0-10 Numeric Is Patient Pain Free? Yes Yes Yes - Visit Discharge Discharge Condition Stable Stable Stable Ambulatory Status Ambulatory, Ambulatory Wheelchair Crutches Transportation Private Auto Private Auto Medication Reconcilliation completed & No No No provided to patient/care provider Clinical Summary of Care Provided Yes Yes Yes Notes: tcc applied Assessment/Plan Assessment/Plan (1) Non-pressure chronic ulcer of left ankle with fat layer exposed: CODE(S): L97.322 - Non-pressure chronic ulcer of left ankle with fat layer exposed (2) Displaced fracture of lateral malleolus of left fibula, subsequent encounter for closed fracture with routine healing: CODE(S): S82.62XD - Displaced fracture of lateral malleolus of left fibula, subsequent encounter for closed fracture with routine healing (3) Venous insufficiency (chronic) (peripheral): CODE(S): I87.2 - Venous insufficiency (chronic) (peripheral) (4) Localized edema: CODE(S): R60.0 - Localized edema PLAN: Plan Patient seen and evaluated He is s/p ORIF of the distal fibula with intramedullary wyatt fixation. DOS 08/31/2024. POD #69 Predebridement measurement: 1.0 cm x 0.4 cm x 0.5 cm Ulceration was debrided as noted in the clinical panel above. Postdebridement measurement 1.1 cm x 0.5 cm x 0.5 cm. He did undergo Dakin's wash following debridement. No signs of infection to ulcerative site. EpiFix graft #4 was applied to the base of the ulcerative site and dressed with Adaptic touch and anchored with Steri-Strips. Dry sterile dressing and 4 inch Kendrick wrap were applied for dressings. He is to change outer dressing as needed. He is otherwise to keep dressings clean, dry, and intact and to utilize cast bag when showering. He was transitioned from fracture boot to surgical shoe and may continue ambulation. There is slight improvement in ulcerative size versus previous visit. He will continue oral antibiotic, ciprofloxacin 500 mg twice daily (stop date 10/18/2024). Patient did have cultures obtained in office which demonstrate E. coli. He did finish his oral antibiotic of doxycycline prior to starting the ciprofloxacin. Discussed continuing to elevate lower extremities at all times of rest to aid in edema control. Discussed keeping site clean and dry and to wash with soap and water separate from his shower. He is to keep dressing intact while showering to prevent infection. He was approved for application of advanced wound care product, EpiFix as his ulceration has been caused by an irritated varicose vein along his incision site in addition to edema from chronic venous stasis. Will continue applying. Discussed continued proper diet with protein intake recommended to aid in wound healing. Cuco supplementation/boost supplementation have been recommended. He is also currently taking gabapentin 100 mg 3 times daily for associated nerve pain in addition to ibuprofen 800 mg every 4 to 6 hours for wound pain. Rx ibuprofen 800 mg prescription written 10/11/24 with 3 refills given. I did discuss signs and symptoms of infection with the patient today. Discussed that if he notices increasing redness around the ulcerative site, purulent drainage from the ulcerative bed, increasing foul odor from the ulcerative site, or if he experiences fever greater than 101 degree accompanied by nausea, vomiting, chills that these are signs of a progressing infection and he should report to the ED for IV antibiotics and for further evaluation. He voices understanding of this today. Currently patient is healing the fracture site well and now ambulating in surgical shoe. Plan will be to transition patient back to shoe gear as he is roughly 8 weeks out from placement of his intramedullary wyatt. I have also discussed with the patient the need for smoking cessation to aid in his healing. The following work up and care recommendations were made: Dressing: EpiFix, Adaptic touch, Steri-Strips, dry sterile dressing, 4 inch Kendrick wrap. He is to change outer dressings as needed. Otherwise keep all dressings clean, dry, and intact and utilize cast bag when showering. Wash: Do not get wet Tissue growth optimization: EpiFix Offload: SAP XL dressing and do not place pressure on lateral ankle Vascular: Does have palpable pedal pulses do not feel vascular is impacting healing status. Do feel that venous stasis has contributed to ulcerative site. Edema: Mild edema secondary to chronic venous stasis will continue to elevate lower extremity at all times of rest and eventual transition to a compression stocking. Infection: There is resolving erythema around the ulcerative site currently taking ciprofloxacin as stated above. Pain: Currently on ibuprofen 800 mg and gabapentin 300 mg daily as stated above. Host factors: Chronic venous stasis, nicotine dependence I answered all the patient's questions. To return to the wound healing center in 2 weeks or call sooner if the patient has any questions or concerns.
--- NOTE | 2024-11-09 10:03 | WC ---
PHOTO 11/08/24 LEFT LAT ANKLE
--- NOTE | 2024-11-22 13:15 | PCM.WC.PN ---
History of Present Illness Date of Service: 11/22/24 Chief Complaint: Left lateral ankle ulceration History of Wound: Patient is a 63-year-old male who presents to the wound care center for continued care of his left lateral lower extremity ulceration secondary to dehiscence of surgical wound related to venous insufficiency/varicosity in the regional area. He did undergo ORIF of the left lateral malleolus on 08/31/2024 at [facility]. Due to continued edema and varicose vein he did experience irritation of this vein around the surgical site which did lead to dehiscence at the most distal portion of the incision site. He did undergo 3 weeks of local wound care prior to presentation to the wound center on 10/11/2024. At that time Janay was being applied with serial debridement performed weekly. There was also cultures obtained demonstrating E. coli and he had completed course of oral doxycycline and is finishing oral ciprofloxacin. He does state that the site is tender and does cause some discomfort if continued irritation is present. He does attempt to elevate lower extremity at times of rest to aid in his edema control. He denies N/V/F/chills. Denies further complaints. Subjective Subjective Patient is a 63-year-old male who returns to the wound care center today for continued healing of his left ankle ulceration. He has left grafting product in place and change outer dressing as needed. States he feels well overall. He states he would like the wound to heal faster. Hoping the site can be closed today. Denies constitutional symptoms. Denies further complaints. Objective Data Objective Data Vital Signs: Vital Signs Temp Pulse Resp BP O2 Del Method 98.8 F 97 18 145/79 H Room Air 11/01/24 10:58 11/08/24 11:12 11/08/24 11:12 11/08/24 11:12 11/08/24 11:12 Oxygen Delivery Method Room Air Physical Exam Const alert, oriented x3 and no apparent distress General Appearance: cooperative HEENT normocephalic Eyes General Eye: normal appearance of both eyes Neck General: normal visual inspection Lymph Lymphatic: no lymphadenopathy noted and no lymphedema noted Resp normal respiratory effort Cardio regular rate and regular rhythm Extremity Extremity Narrative: Left lower extremity: Vascular: DP and PT pulses palpable. CFT is less than 4 seconds in digits. Normal temperature gradient. Hair growth is diminished to lower legs/absent to digits. Neurologic: Epicritic sensation intact. No focal deficits noted. Musculoskeletal: Muscle strength 5 of 5 age-appropriate. No pain to palpation of calf. There is some tenderness to palpation around the ulcerative rim at the distal incision site. Still some residual tenderness to palpation overlying the fracture site at the lateral malleolus. Dermatologic: There are varicosities noted to the lower extremity with some edema noted. Cicatrix to the lateral ankle with distal portion of dehiscence secondary to irritated varicose vein. Ulceration at the distal aspect of the incision site is full-thickness with mixed fibrogranular layer. There is improvement in localized erythema about the ulcerative site from previous visit. No palpable fluctuance/bogginess, no visible abscess formation, no malodor, no purulent drainage. Skin no rashes or lesions noted Neuro moves all extremities Debridement Note Debridement Note Wound debrided: Left lower extremity Laterality: Left Wound Grade/Stage: Gilmore stage I Type of Debridement: Excisional debridement Anesthesia Used: 5% Lidocaine Gel and - (10 cc 1% lidocaine plain) Depth: Down to and including healthy tissue and in the subcutaneous layer Percentage of wound debrided: 100 Instrument Used: 3mm curette Tissue Removed: Fibrous, devitalized subcutaneous, biofilm, slough Severity: Fat Layer Exposed Amount of bleeding with debridement: Mild Bleeding Controlled with: Compression and gauze Patient tolerated procedure: Patient tolerated procedure well Post-Debridement Measurements and Additional Note: Post-Debridement Measurements/Treatment - Nurse 1 - General Ulcer Assessment Start: 11/01/24 10:58 Freq: Status: Active Protocol: KAT.[email or web address] Activity Type Activity Date Activity User E-sign Co-sign Detail Recorded Client Recorded Date Recorded By Document 11/01/24 10:58 [id number] 11/01/24 11:09 KW Document 11/08/24 11:12 KW [id number] 11/08/24 11:17 KW Document 11/22/24 11:14 [email or web address] [id number] 11/22/24 11:21 11/01/24 11/08/24 11/22/24 10:58 11:12 11:14 - Today's Visit Information Type of service Follow-up Visit Follow-up Visit Follow-up Visit (Physician/PIPE COREMAKER (Physician/PIPE COREMAKER (Physician/PIPE COREMAKER ) ) ) Arrival Mode Ambulatory, Ambulatory, Ambulatory, Crutches Crutches Crutches Patient Identification Verified (Name & Yes Yes Yes ) Patient Requires Transmission-Based No Precautions Vital Signs Temperature (97.8 F-99.1 F) 98.8 F Temperature Source Temporal Pulse Rate (60-100) 88 97 Pulse Location Monitor Monitor Respiratory Rate (12-18) 16 18 Respiratory rate source Observation Observation Oxygen Delivery Method Room Air Room Air Blood Pressure (90/60-120/80) 141/87 H 145/79 H Blood Pressure Mean (mm Hg) 105 101 Source Monitor Monitor Position Semi-Fowlers Semi-Fowlers Blood Pressure Location Left Arm Left Arm History Since Last Visit- (Skip if this is Patient's initial visit) Have you changed medications since your No No No last visit? Any new allergies or adverse reactions No No No Had a fall/change in ADL's that may No No No increase risk of falls Signs or symptoms of abuse and/or No No No neglect since last visit Have you been in the hospital since your No No No last visit? Has dressing in place as prescribed Yes Yes Yes Has compression in place as prescribed Yes Yes Yes Has offloadiing in place as prescribed Yes Yes Yes Experienced any changes in pain level or No No No management Left Footwear Surgical Shoe Surgical Shoe Surgical Shoe with pressure with pressure with pressure relief insole relief insole relief insole Right Footwear Regular Shoe Regular Shoe Regular Shoe Pain Scale: 0-10 Numeric Is Patient Pain Free? Yes Yes Yes - Nurse 1 - General Ulcer Measurement Start: 11/01/24 10:58 Freq: Status: Active Protocol: Activity Type Activity Date Activity User E-sign Co-sign Detail Recorded Client Recorded Date Recorded By Document 11/01/24 10:58 KW [id number] 11/01/24 11:09 KW Document 11/08/24 11:12 KW [id number] 11/08/24 11:17 KW Document 11/22/24 11:14 JF [id number] 11/22/24 11:21 JF 11/01/24 11/08/24 11/22/24 10:58 11:12 11:14 Wound Center Nurse 1 #1 L LAT ANKLE -Combined with other wound No -Current Size (cm) - Length 1 1 1.0 -Current Size (cm) - Width 0.5 0.5 0.5 -Current Size (cm) - Depth 0.8 0.4 0.7 -Total Square Cm 0.5 0.5 0.50 -Date of Last Picture (Recall this 11/01/24 11/08/24 field) -Photo Taken Yes -Epithelialization Small 1-33% -Tunneling No -Undermining/Tunneling No -Circular Undermining No -Exudate Amt Medium Medium Medium -Exudate Type Serosanguineous Serosanguineous Serosanguineous -Wound Margin Thickened & Distinct, Flat & Intact Rolled Under Outline Attached -Granulation Amt Small (1-33%) Large (67-100%) Medium (34-66%) -Granulation Quality [place] -Slough/Fibrin Yes -Necrosis Amt Large (67-100%) Small (1-33%) Small (1-33%) -Necrotic Tissue Type Adherent Slough Adherent Slough Adherent Slough -Structure Exposed N/A -Texture (Viry-wound Skin Appearance) Assessed Assessed Assessed, Scarring -Moisture (Viry-wound Skin Appearance) Assessed Assessed Assessed,Dry/ Scaly -Color (Viry-wound Skin Appearance) Assessed, Assessed Assessed Erythema -Temperature (Viry-wound Skin No Abnormality No Abnormality No Abnormality Appearance) (Pt Warm) (Pt Warm) (Pt Warm) -Tenderness on Palpation (Viry-wound No No No Skin Appearance) -Ulcer Cleansing Soap and Water Soap and Water Soap and Water -Foul Odor after Cleansing No No No -Anesthetic Used 5% Lidocaine 5% Lidocaine 4% Lidocaine Gel Gel Solution Lower Limb Edema Present No WC - Nurse 2 - General Ulcer CM Notes Start: 11/01/24 10:58 Freq: Status: Active Protocol: Activity Type Activity Date Activity User E-sign Co-sign Detail Recorded Client Recorded Date Recorded By Document 11/01/24 11:17 [facility] [id number] 11/01/24 11:26 [facility] Document 11/08/24 11:22 [facility] [id number] 11/08/24 11:37 [facility] Document 11/22/24 11:41 [facility] [id number] 11/22/24 12:00 [facility] 11/01/24 11/08/24 11/22/24 11:17 11:22 11:41 Wound Center Nurse 2 #1 L LAT ANKLE -Time 11:17 11:22 11:43 -Correct Patient Yes Yes Yes -Correct Side, Site, Position Yes Yes Yes -Correct Procedure Yes Yes Yes -Procedure Performed Yes Yes Yes -Type of Procedure Debridement Debridement Debridement -Clinical Debridement Subcutaneous Muscle / Fascia Subcutaneous -Tissue Removed Subcutaneous Muscle,Fascia Subcutaneous -Post Debridement (cm) - Length 1 1.1 0.1 -Post Debridement (cm) - Width 0.6 0.5 0.1 -Post Debridement (cm) - Depth 0.5 0.5 0.1 -Total Square (Post) (cm) 0.6 0.55 0.01 -Area of Debridement (cm) - Length 1 1.1 0.1 -Area of Debridement (cm) - Width 0.6 0.5 0.1 -Total Square (Area) (cm) 0.6 0.55 0.01 -Tunneling No No No -Undermining/Tunneling No No No -Circular Undermining No No No -Wound/Ulcer Outcome Not Healed Not Healed Not Healed -Ulcer Cleansing Rinsed/ Rinsed/ Rinsed/ Irrigated with Irrigated with Irrigated with Saline Saline Saline -Foul Odor after Cleansing No No No -Bioengineered Tissue Yes Yes No -Type of Bioengineered Tissue Epifix 18mm Epifix 18mm Disc Disc -Expiration Date 05/04/29 06/03/29 -Product Lot Number [id number] -Percent Used 100 100 -Lot number of Saline Used [id number] -Injectable Lidocaine (%) 1 -Lidocaine (ml) 10 -Injectable Lidocaine w/ Epi (%) 1 -Injectable Lidocaine w/ Epi (mls) 10 -Bleeding Controlled with Pressure Pressure Pressure -Treatment Response Procedure Procedure Procedure Tolerated Well Tolerated Well Tolerated Well -Offloading Yes -Type of Offloading Other -Other Type of Offloading left surgical shoe -Assistive Device(s) Crutches -Debridement - Subq, 1st 20sq cm No Yes -Debridement - Muscle / Fascia, 1st No 20sq cm -Apply Skin Sub - 1st 25 sq cm - Legs 1 1 -Epifix 18mm Disc Application 1-4 3 3 -Wound Comment(s) sutured closed today Pain Scale: 0-10 Numeric Is Patient Pain Free? Yes Yes No LLE -Duration (hours) Acute -Pain Behavior Guarding,Facial Grimacing -Alleviating Factors/Interventions Medication -Comments 1% injectable lidocaine prior to procedure WC - Nurse 3 - General Ulcer D/C NN Start: 11/01/24 10:58 Freq: Status: Active Protocol: Activity Type Activity Date Activity User E-sign Co-sign Detail Recorded Client Recorded Date Recorded By Document 11/01/24 11:30 KW [id number] 11/01/24 11:33 KW Document 11/08/24 11:53 KW [id number] 11/08/24 11:54 KW Document 11/08/24 11:59 KW [id number] 11/08/24 11:59 KW Document 11/22/24 12:10 JF [id number] 11/22/24 12:10 JF 11/01/24 11/08/24 11/08/24 11:30 11:53 11:59 Wound Care Center Nurse 3 #1 L LAT ANKLE -Ulcer Cleansing -Foul Odor after Cleansing -Primary Dressing Applied AMD Dressing 4x4 -Other Dressing betadine with pt janay -Primary Dressing Covered/Secured with Dry Gauze & Dry Gauze & Roll Gauze, Roll Gauze, Secured with Secured with Tape Tape -AMD Dressing 4x4 2 LLE -Compression Wrap Kendrick Wrap Kendrick Wrap -Other 4 inch 4 IN Pain Scale: 0-10 Numeric Is Patient Pain Free? Yes Yes Yes WC - Visit Discharge Discharge Condition Stable Stable Stable Ambulatory Status Ambulatory, Ambulatory Wheelchair Crutches Transportation Private Auto Private Auto Medication Reconcilliation completed & No No No provided to patient/care provider Clinical Summary of Care Provided Yes Yes Yes Notes: tcc applied 11/22/24 12:10 Wound Care Center Nurse 3 #1 L LAT ANKLE -Ulcer Cleansing Rinsed/ Irrigated with Saline -Foul Odor after Cleansing No -Primary Dressing Applied NonAdherent Contact Layer -Other Dressing -Primary Dressing Covered/Secured with Dry Gauze & Roll Gauze, Secured with Tape -AMD Dressing 4x4 LLE -Compression Wrap Kendrick Wrap -Other Pain Scale: 0-10 Numeric Is Patient Pain Free? Yes WC - Visit Discharge Discharge Condition Stable Ambulatory Status Ambulatory, Crutches Transportation Private Auto Medication Reconcilliation completed & Yes provided to patient/care provider Clinical Summary of Care Provided Yes Notes: Assessment/Plan Assessment/Plan (1) Non-pressure chronic ulcer of left ankle with fat layer exposed: CODE(S): L97.322 - Non-pressure chronic ulcer of left ankle with fat layer exposed (2) Displaced fracture of lateral malleolus of left fibula, subsequent encounter for closed fracture with routine healing: CODE(S): S82.62XD - Displaced fracture of lateral malleolus of left fibula, subsequent encounter for closed fracture with routine healing (3) Venous insufficiency (chronic) (peripheral): CODE(S): I87.2 - Venous insufficiency (chronic) (peripheral) (4) Localized edema: CODE(S): R60.0 - Localized edema PLAN: Plan Patient seen and evaluated He is s/p ORIF of the distal fibula with intramedullary wyatt fixation. DOS 08/31/2024. POD #83 Predebridement measurement: 0.9 cm x 0.3 cm x 0.4 cm Ulceration was debrided as noted in the clinical panel above. Postdebridement measurement 0.9 cm x 0.4 cm x 0.4 cm. He did undergo Dakin's wash following debridement. No signs of infection to ulcerative site. EpiFix graft #4 was applied to the base of the ulcerative site on 11/08/24. Will refrain from graft placement at this time. Following the Dakin's wash he did undergo a delayed primary closure of the site utilizing 3-0 Prolene. Site was dressed with Adaptic and dry sterile dressing. He is instructed to leave this dressing in place and keep it clean, dry, and intact and utilize a cast bag when showering to maintain compliance. There is slight improvement in ulcerative size versus previous visit. He will continue oral antibiotic, ciprofloxacin 500 mg twice daily (stop date 10/18/2024). Patient did have cultures obtained in office which demonstrate E. coli. He did finish his oral antibiotic of doxycycline prior to starting the ciprofloxacin. Discussed continuing to elevate lower extremities at all times of rest to aid in edema control. Discussed keeping site clean and dry and to wash with soap and water separate from his shower. He is to keep dressing intact while showering to prevent infection. He was approved for application of advanced wound care product, EpiFix as his ulceration has been caused by an irritated varicose vein along his incision site in addition to edema from chronic venous stasis. Will continue applying. Discussed continued proper diet with protein intake recommended to aid in wound healing. Cuco supplementation/boost supplementation have been recommended. He is also currently taking gabapentin 100 mg 3 times daily for associated nerve pain in addition to ibuprofen 800 mg every 4 to 6 hours for wound pain. Rx ibuprofen 800 mg prescription written 10/11/24 with 3 refills given. I did discuss signs and symptoms of infection with the patient today. Discussed that if he notices increasing redness around the ulcerative site, purulent drainage from the ulcerative bed, increasing foul odor from the ulcerative site, or if he experiences fever greater than 101 degree accompanied by nausea, vomiting, chills that these are signs of a progressing infection and he should report to the ED for IV antibiotics and for further evaluation. He voices understanding of this today. Currently patient is healing the fracture site well and now ambulating in surgical shoe. Plan will be to transition patient back to shoe gear as he is roughly 8 weeks out from placement of his intramedullary wyatt. I have also discussed with the patient the need for smoking cessation to aid in his healing. The following work up and care recommendations were made: Dressing: Adaptic over suture site, dry sterile dressing, 4 inch Kendrick wrap. Otherwise keep all dressings clean, dry, and intact and utilize cast bag when showering. Wash: Do not get wet Tissue growth optimization: EpiFix Offload: SAP XL dressing and do not place pressure on lateral ankle Vascular: Does have palpable pedal pulses do not feel vascular is impacting healing status. Do feel that venous stasis has contributed to ulcerative site. Edema: Mild edema secondary to chronic venous stasis will continue to elevate lower extremity at all times of rest and eventual transition to a compression stocking. Infection: There is resolving erythema around the ulcerative site currently taking ciprofloxacin as stated above. Pain: Currently on ibuprofen 800 mg and gabapentin 300 mg daily as stated above. Host factors: Chronic venous stasis, nicotine dependence I answered all the patient's questions. To return to the wound healing center in 1 week or call sooner if the patient has any questions or concerns.
[2024-11-29 10:59] VITALS: BP 135/75; PULSE 92; RESP 18; TEMP 35.7
--- NOTE | 2024-11-29 12:15 | PCM.WC.PN ---
History of Present Illness Date of Service: 11/29/24 Chief Complaint: Left lateral ankle ulceration History of Wound: Patient is a 63-year-old male who presents to the wound care center for continued care of his left lateral lower extremity ulceration secondary to dehiscence of surgical wound related to venous insufficiency/varicosity in the regional area. He did undergo ORIF of the left lateral malleolus on 08/31/2024 at [facility]. Due to continued edema and varicose vein he did experience irritation of this vein around the surgical site which did lead to dehiscence at the most distal portion of the incision site. He did undergo 3 weeks of local wound care prior to presentation to the wound center on 10/11/2024. At that time Janay was being applied with serial debridement performed weekly. There was also cultures obtained demonstrating E. coli and he had completed course of oral doxycycline and is finishing oral ciprofloxacin. He does state that the site is tender and does cause some discomfort if continued irritation is present. He does attempt to elevate lower extremity at times of rest to aid in his edema control. He denies N/V/F/chills. Denies further complaints. Subjective Subjective Patient is a 63-year-old male who returns to the wound care center today for continued healing of his left ankle ulceration. He has left grafting product in place and change outer dressing as needed. States he feels well overall but still has some pain with debridement. Denies constitutional symptoms. Denies further complaints. Objective Data Objective Data Vital Signs: Vital Signs Temp Pulse Resp BP O2 Del Method 96.3 F L 92 18 135/75 H Room Air 11/29/24 10:59 11/29/24 10:59 11/29/24 10:59 11/29/24 10:59 11/08/24 11:12 Oxygen Delivery Method Room Air Physical Exam Const alert, oriented x3 and no apparent distress General Appearance: cooperative HEENT normocephalic Eyes General Eye: normal appearance of both eyes Neck General: normal visual inspection Lymph Lymphatic: no lymphadenopathy noted and no lymphedema noted Resp normal respiratory effort Cardio regular rate and regular rhythm Extremity Extremity Narrative: Left lower extremity: Vascular: DP and PT pulses palpable. CFT is less than 4 seconds in digits. Normal temperature gradient. Hair growth is diminished to lower legs/absent to digits. Neurologic: Epicritic sensation intact. No focal deficits noted. Musculoskeletal: Muscle strength 5 of 5 age-appropriate. No pain to palpation of calf. There is some tenderness to palpation around the ulcerative rim at the distal incision site. Still some residual tenderness to palpation overlying the fracture site at the lateral malleolus. Dermatologic: There are varicosities noted to the lower extremity with some edema noted. Cicatrix to the lateral ankle with distal portion of dehiscence secondary to irritated varicose vein. Ulceration at the distal aspect of the incision site is full-thickness with mixed fibrogranular layer. No palpable fluctuance/bogginess, no visible abscess formation, no malodor, no purulent drainage. Skin no rashes or lesions noted Neuro moves all extremities Debridement Note Debridement Note No debridement was completed: No debridement was completed today Post-Debridement Measurements and Additional Note: Post-Debridement Measurements/Treatment - Nurse 1 - General Ulcer Assessment Start: 11/01/24 10:58 Freq: Status: Active Protocol: KAT.[email or web address] Activity Type Activity Date Activity User E-sign Co-sign Detail Recorded Client Recorded Date Recorded By Document 11/01/24 10:58 KW [id number] 11/01/24 11:09 KW Document 11/08/24 11:12 KW [id number] 11/08/24 11:17 KW Document 11/22/24 11:14 JF [id number] 11/22/24 11:21 JF Document 11/29/24 10:59 JF [id number] 11/29/24 11:05 JF 11/01/24 11/08/24 11/22/24 10:58 11:12 11:14 - Today's Visit Information Type of service Follow-up Visit Follow-up Visit Follow-up Visit (Physician/DRY CHAIN WORKER (Physician/DRY CHAIN WORKER (Physician/DRY CHAIN WORKER ) ) ) Arrival Mode Ambulatory, Ambulatory, Ambulatory, Crutches Crutches Crutches Patient Identification Verified (Name & Yes Yes Yes ) Patient Requires Transmission-Based No Precautions Vital Signs Temperature (97.8 F-99.1 F) 98.8 F Temperature Source Temporal Pulse Rate (60-100) 88 97 Pulse Location Monitor Monitor Respiratory Rate (12-18) 16 18 Respiratory rate source Observation Observation Oxygen Delivery Method Room Air Room Air Blood Pressure (90/60-120/80) 141/87 H 145/79 H Blood Pressure Mean (mm Hg) 105 101 Source Monitor Monitor Position Semi-Fowlers Semi-Fowlers Blood Pressure Location Left Arm Left Arm History Since Last Visit- (Skip if this is Patient's initial visit) Have you changed medications since your No No No last visit? Any new allergies or adverse reactions No No No Had a fall/change in ADL's that may No No No increase risk of falls Signs or symptoms of abuse and/or No No No neglect since last visit Have you been in the hospital since your No No No last visit? Has dressing in place as prescribed Yes Yes Yes Has compression in place as prescribed Yes Yes Yes Has offloadiing in place as prescribed Yes Yes Yes Experienced any changes in pain level or No No No management Left Footwear Surgical Shoe Surgical Shoe Surgical Shoe with pressure with pressure with pressure relief insole relief insole relief insole Right Footwear Regular Shoe Regular Shoe Regular Shoe Pain Scale: 0-10 Numeric Is Patient Pain Free? Yes Yes Yes LLE -Description -Duration (hours) -Pain Behavior -Pain Aggravating Factors -Alleviating Factors/Interventions -Effectiveness of Alleviating Factor/ Intervention -Comments 11/29/24 10:59 WC - Today's Visit Information Type of service Follow-up Visit (Physician/DRY CHAIN WORKER ) Arrival Mode Ambulatory, Crutches Patient Identification Verified (Name & Yes ) Patient Requires Transmission-Based No Precautions Vital Signs Temperature (97.8 F-99.1 F) 96.3 F L Temperature Source Oral Pulse Rate (60-100) 92 Pulse Location Monitor Respiratory Rate (12-18) 18 Respiratory rate source Observation Oxygen Delivery Method Blood Pressure (90/60-120/80) 135/75 H Blood Pressure Mean (mm Hg) 95 Source Monitor Position Semi-Fowlers Blood Pressure Location Left Arm History Since Last Visit- (Skip if this is Patient's initial visit) Have you changed medications since your No last visit? Any new allergies or adverse reactions No Had a fall/change in ADL's that may No increase risk of falls Signs or symptoms of abuse and/or No neglect since last visit Have you been in the hospital since your No last visit? Has dressing in place as prescribed Yes Has compression in place as prescribed Yes Has offloadiing in place as prescribed Yes Experienced any changes in pain level or No management Left Footwear Surgical Shoe with pressure relief insole Right Footwear Regular Shoe Pain Scale: 0-10 Numeric Is Patient Pain Free? No LLE -Description Sharp,Tightness -Duration (hours) Chronic -Pain Behavior Irritability -Pain Aggravating Factors ADL's,Exercise/ Activity -Alleviating Factors/Interventions Medication -Effectiveness of Alleviating Factor/ Minimally Intervention effective -Comments Tylenol WC - Nurse 1 - General Ulcer Measurement Start: 11/01/24 10:58 Freq: Status: Active Protocol: Activity Type Activity Date Activity User E-sign Co-sign Detail Recorded Client Recorded Date Recorded By Document 11/01/24 10:58 KW [id number] 11/01/24 11:09 KW Document 11/08/24 11:12 KW [id number] 11/08/24 11:17 KW Document 11/22/24 11:14 JF [id number] 11/22/24 11:21 JF Document 11/29/24 10:59 JF [id number] 11/29/24 11:05 JF 11/01/24 11/08/24 11/22/24 10:58 11:12 11:14 Wound Center Nurse 1 #1 L LAT ANKLE -Combined with other wound No -Current Size (cm) - Length 1 1 1.0 -Current Size (cm) - Width 0.5 0.5 0.5 -Current Size (cm) - Depth 0.8 0.4 0.7 -Total Square Cm 0.5 0.5 0.50 -Date of Last Picture (Recall this 11/01/24 11/08/24 field) -Photo Taken Yes -Epithelialization Small 1-33% -Tunneling No -Undermining/Tunneling No -Circular Undermining No -Exudate Amt Medium Medium Medium -Exudate Type Serosanguineous Serosanguineous Serosanguineous -Wound Margin Thickened & Distinct, Flat & Intact Rolled Under Outline Attached -Granulation Amt Small (1-33%) Large (67-100%) Medium (34-66%) -Granulation Quality Sed[place]-Woolley Sedro-Woolley Sedro-Woolley -Slough/Fibrin Yes -Necrosis Amt Large (67-100%) Small (1-33%) Small (1-33%) -Necrotic Tissue Type Adherent Slough Adherent Slough Adherent Slough -Structure Exposed N/A -Texture (Viry-wound Skin Appearance) Assessed Assessed Assessed, Scarring -Moisture (Viry-wound Skin Appearance) Assessed Assessed Assessed,Dry/ Scaly -Color (Viry-wound Skin Appearance) Assessed, Assessed Assessed Erythema -Temperature (Viry-wound Skin No Abnormality No Abnormality No Abnormality Appearance) (Pt Warm) (Pt Warm) (Pt Warm) -Tenderness on Palpation (Viry-wound No No No Skin Appearance) -Ulcer Cleansing Soap and Water Soap and Water Soap and Water -Foul Odor after Cleansing No No No -Anesthetic Used 5% Lidocaine 5% Lidocaine 4% Lidocaine Gel Gel Solution Lower Limb Edema Present No Left Calf (cm) Left Ankle (cm) 11/29/24 10:59 Wound Center Nurse 1 #1 L LAT ANKLE -Combined with other wound No -Current Size (cm) - Length 0.1 -Current Size (cm) - Width 0.1 -Current Size (cm) - Depth 0.1 -Total Square Cm 0.01 -Date of Last Picture (Recall this field) -Photo Taken Yes -Epithelialization Medium 34-66% -Tunneling No -Undermining/Tunneling No -Circular Undermining No -Exudate Amt -Exudate Type -Wound Margin Flat & Intact -Granulation Amt -Granulation Quality -Slough/Fibrin -Necrosis Amt -Necrotic Tissue Type -Structure Exposed -Texture (Viry-wound Skin Appearance) -Moisture (Viry-wound Skin Appearance) -Color (Viry-wound Skin Appearance) -Temperature (Viry-wound Skin Appearance) -Tenderness on Palpation (Viry-wound Skin Appearance) -Ulcer Cleansing -Foul Odor after Cleansing -Anesthetic Used Lower Limb Edema Present Yes Left Calf (cm) 35.2 Left Ankle (cm) 21.7 WC - Nurse 2 - General Ulcer CM Notes Start: 11/01/24 10:58 Freq: Status: Active Protocol: Activity Type Activity Date Activity User E-sign Co-sign Detail Recorded Client Recorded Date Recorded By Document 11/01/24 11:17 BMF [id number] 11/01/24 11:26 BMF Document 11/08/24 11:22 BMF [id number] 11/08/24 11:37 BMF Document 11/22/24 11:41 BMF [id number] 11/22/24 12:00 BMF Document 11/29/24 11:06 BMF [id number] 11/29/24 11:08 BMF Edit Result 11/29/24 11:06 BMF (1) [id number] 11/29/24 11:13 BMF (1) #1 L LAT ANKLE - Wound Comment(s) => sutures intact 11/01/24 11/08/24 11/22/24 11:17 11:22 11:41 Wound Center Nurse 2 #1 L LAT ANKLE -Time 11: 11:22 11:43 -Correct Patient Yes Yes Yes -Correct Side, Site, Position Yes Yes Yes -Correct Procedure Yes Yes Yes -Procedure Performed Yes Yes Yes -Type of Procedure Debridement Debridement Debridement -Clinical Debridement Subcutaneous Muscle / Fascia Subcutaneous -Tissue Removed Subcutaneous Muscle,Fascia Subcutaneous -Post Debridement (cm) - Length 1 1.1 0.1 -Post Debridement (cm) - Width 0.6 0.5 0.1 -Post Debridement (cm) - Depth 0.5 0.5 0.1 -Total Square (Post) (cm) 0.6 0.55 0.01 -Area of Debridement (cm) - Length 1 1.1 0.1 -Area of Debridement (cm) - Width 0.6 0.5 0.1 -Total Square (Area) (cm) 0.6 0.55 0.01 -Tunneling No No No -Undermining/Tunneling No No No -Circular Undermining No No No -Wound/Ulcer Outcome Not Healed Not Healed Not Healed -Ulcer Cleansing Rinsed/ Rinsed/ Rinsed/ Irrigated with Irrigated with Irrigated with Saline Saline Saline -Foul Odor after Cleansing No No No -Bioengineered Tissue Yes Yes No -Type of Bioengineered Tissue Epifix 18mm Epifix 18mm Disc Disc -Expiration Date 05/04/29 06/03/29 -Product Lot Number [id number] -Percent Used 100 100 -Lot number of Saline Used [id number] -Injectable Lidocaine (%) 1 -Lidocaine (ml) 10 -Injectable Lidocaine w/ Epi (%) 1 -Injectable Lidocaine w/ Epi (mls) 10 -Bleeding Controlled with Pressure Pressure Pressure -Treatment Response Procedure Procedure Procedure Tolerated Well Tolerated Well Tolerated Well -Offloading Yes -Type of Offloading Other -Other Type of Offloading left surgical shoe -Assistive Device(s) Crutches -Debridement - Subq, 1st 20sq cm No Yes -Debridement - Muscle / Fascia, 1st No 20sq cm -Apply Skin Sub - 1st 25 sq cm - Legs 1 1 -Epifix 18mm Disc Application 1-4 3 3 -Wound Comment(s) sutured closed today Pain Scale: 0-10 Numeric Is Patient Pain Free? Yes Yes No LLE -Duration (hours) Acute -Pain Behavior Guarding,Facial Grimacing -Alleviating Factors/Interventions Medication -Comments 1% injectable lidocaine prior to procedure 11/29/24 11:06 Wound Center Nurse 2 #1 L LAT ANKLE -Time 11:06 -Correct Patient -Correct Side, Site, Position -Correct Procedure -Procedure Performed No -Type of Procedure -Clinical Debridement -Tissue Removed -Post Debridement (cm) - Length 0.1 -Post Debridement (cm) - Width 0.1 -Post Debridement (cm) - Depth 0.1 -Total Square (Post) (cm) 0.01 -Area of Debridement (cm) - Length 0.1 -Area of Debridement (cm) - Width 0.1 -Total Square (Area) (cm) 0.01 -Tunneling No -Undermining/Tunneling No -Circular Undermining No -Wound/Ulcer Outcome Not Healed -Ulcer Cleansing -Foul Odor after Cleansing -Bioengineered Tissue -Type of Bioengineered Tissue -Expiration Date -Product Lot Number -Percent Used -Lot number of Saline Used -Injectable Lidocaine (%) -Lidocaine (ml) -Injectable Lidocaine w/ Epi (%) -Injectable Lidocaine w/ Epi (mls) -Bleeding Controlled with NA -Treatment Response -Offloading -Type of Offloading -Other Type of Offloading -Assistive Device(s) -Debridement - Subq, 1st 20sq cm -Debridement - Muscle / Fascia, 1st 20sq cm -Apply Skin Sub - 1st 25 sq cm - Legs -Epifix 18mm Disc Application 1-4 -Wound Comment(s) sutures intact Pain Scale: 0-10 Numeric Is Patient Pain Free? Yes LLE -Duration (hours) -Pain Behavior -Alleviating Factors/Interventions -Comments WC - Nurse 3 - General Ulcer D/C NN Start: 11/01/24 10:58 Freq: Status: Active Protocol: Activity Type Activity Date Activity User E-sign Co-sign Detail Recorded Client Recorded Date Recorded By Document 11/01/24 11:30 KW [id number] 11/01/24 11:33 KW Document 11/08/24 11:53 KW [id number] 11/08/24 11:54 KW Document 11/08/24 11:59 KW [id number] 11/08/24 11:59 KW Document 11/22/24 12:10 JF [id number] 11/22/24 12:10 JF Document 11/29/24 11:23 JF [id number] 11/29/24 11:24 JF 11/01/24 11/08/24 11/08/24 11:30 11:53 11:59 Wound Care Center Nurse 3 #1 L LAT ANKLE -Ulcer Cleansing -Foul Odor after Cleansing -Primary Dressing Applied AMD Dressing 4x4 -Other Dressing betadine with pt janay -Primary Dressing Covered/Secured with Dry Gauze & Dry Gauze & Roll Gauze, Roll Gauze, Secured with Secured with Tape Tape -AMD Dressing 4x4 2 LLE -Compression Wrap Kendrick Wrap Kendrick Wrap -Other 4 inch 4 IN Pain Scale: 0-10 Numeric Is Patient Pain Free? Yes Yes Yes WC - Visit Discharge Discharge Condition Stable Stable Stable Ambulatory Status Ambulatory, Ambulatory Wheelchair Crutches Transportation Private Auto Private Auto Medication Reconcilliation completed & No No No provided to patient/care provider Clinical Summary of Care Provided Yes Yes Yes Notes: tcc applied 11/22/24 11/29/24 12:10 11:23 Wound Care Center Nurse 3 #1 L LAT ANKLE -Ulcer Cleansing Rinsed/ Rinsed/ Irrigated with Irrigated with Saline Saline -Foul Odor after Cleansing No No -Primary Dressing Applied NonAdherent Contact Layer -Other Dressing betadine and adaptic -Primary Dressing Covered/Secured with Dry Gauze & Dry Gauze & Roll Gauze, Roll Gauze, Secured with Secured with Tape Tape -AMD Dressing 4x4 LLE -Compression Wrap Kendrick Wrap Kendrick Wrap -Other Pain Scale: 0-10 Numeric Is Patient Pain Free? Yes Yes WC - Visit Discharge Discharge Condition Stable Stable Ambulatory Status Ambulatory, Ambulatory, Crutches Crutches Transportation Private Auto Private Auto Medication Reconcilliation completed & Yes Yes provided to patient/care provider Clinical Summary of Care Provided Yes Yes Notes: Assessment/Plan Assessment/Plan (1) Non-pressure chronic ulcer of left ankle with fat layer exposed: CODE(S): L97.322 - Non-pressure chronic ulcer of left ankle with fat layer exposed (2) Displaced fracture of lateral malleolus of left fibula, subsequent encounter for closed fracture with routine healing: CODE(S): S82.62XD - Displaced fracture of lateral malleolus of left fibula, subsequent encounter for closed fracture with routine healing (3) Venous insufficiency (chronic) (peripheral): CODE(S): I87.2 - Venous insufficiency (chronic) (peripheral) (4) Localized edema: CODE(S): R60.0 - Localized edema PLAN: Plan Patient seen and evaluated He is s/p ORIF of the distal fibula with intramedullary wyatt fixation. DOS 08/31/2024. POD #90 Currently 3 months out from surgery Predebridement measurement: 0.1 cm x 0.1 cm x 0.1 cm Ulceration was not debrided as noted in the clinical panel above. Postdebridement measurement 0.1 cm x 0.1 cm x 0.1 cm. No signs of infection to ulcerative site. EpiFix graft #4 was applied to the base of the ulcerative site on 11/08/24. Will refrain from graft placement at this time. Sutures intact at site. Site was dressed with Betadine, Adaptic and dry sterile dressing. He is instructed to leave this dressing in place and keep it clean, dry, and intact and utilize a cast bag when showering to maintain compliance. There is improvement in ulcerative size versus previous visit and site remains stable. He finished oral antibiotic, ciprofloxacin 500 mg twice daily (stop date 10/18/2024). Patient did have cultures obtained in office which demonstrate E. coli. He did finish his oral antibiotic of doxycycline prior to starting the ciprofloxacin. Discussed continuing to elevate lower extremities at all times of rest to aid in edema control. Discussed keeping site clean and dry and to wash with soap and water separate from his shower. He is to keep dressing intact while showering to prevent infection. He was approved for application of advanced wound care product, EpiFix as his ulceration has been caused by an irritated varicose vein along his incision site in addition to edema from chronic venous stasis. Will continue applying. Discussed continued proper diet with protein intake recommended to aid in wound healing. Cuco supplementation/boost supplementation have been recommended. He is also currently taking gabapentin 100 mg 3 times daily for associated nerve pain in addition to ibuprofen 800 mg every 4 to 6 hours for wound pain. Rx ibuprofen 800 mg prescription written 10/11/24 with 3 refills given. I did discuss signs and symptoms of infection with the patient today. Discussed that if he notices increasing redness around the ulcerative site, purulent drainage from the ulcerative bed, increasing foul odor from the ulcerative site, or if he experiences fever greater than 101 degree accompanied by nausea, vomiting, chills that these are signs of a progressing infection and he should report to the ED for IV antibiotics and for further evaluation. He voices understanding of this today. Currently patient is healing the fracture site well and now ambulating in surgical shoe. Plan will be to transition patient back to shoe gear as he is roughly 12 weeks out from placement of his intramedullary wyatt, however he continues ambulation in post operative shoe as wound undergoes healing. I have also discussed with the patient the need for smoking cessation to aid in his healing. The following work up and care recommendations were made: Dressing: Adaptic over suture site, dry sterile dressing, 4 inch Kendrick wrap. Otherwise keep all dressings clean, dry, and intact and utilize cast bag when showering. Wash: Do not get wet Tissue growth optimization: EpiFix Offload: SAP XL dressing and do not place pressure on lateral ankle Vascular: Does have palpable pedal pulses do not feel vascular is impacting healing status. Do feel that venous stasis has contributed to ulcerative site. Edema: Mild edema secondary to chronic venous stasis will continue to elevate lower extremity at all times of rest and eventual transition to a compression stocking. Infection: There is resolving erythema around the ulcerative site currently taking ciprofloxacin as stated above. Pain: Currently on ibuprofen 800 mg and gabapentin 300 mg daily as stated above. Host factors: Chronic venous stasis, nicotine dependence I answered all the patient's questions. To return to the wound healing center in 1 week or call sooner if the patient has any questions or concerns.
--- NOTE | 2024-11-30 13:04 | WC ---
PHOTO 11/29/24 LEFT ANKLE
== END 2024-12-01 23:59 | disposition home or self-care (01) ==
LOC: WC 10:45
PROVIDERS: PCP Surgery Vascular Surgery; Referring Provider Student in an Organized Health Care Education/Training Program; Visit Provider Student in an Organized Health Care Education/Training Program
DX: I83.023 Varicose veins of left lower extremity with ulcer of ankle (principal); L97.322 Non-pressure chronic ulcer of left ankle with fat layer exposed; I87.2 Venous insufficiency (chronic) (peripheral); T81.31XA Disruption of external operation (surgical) wound, not elsewhere classified, initial encounter; Y83.8 Other surgical procedures as the cause of abnormal reaction of the patient, or of later complication, without mention of misadventure at the time of the procedure; S82.62XS Displaced fracture of lateral malleolus of left fibula, sequela; R60.0 Localized edema; F17.210 Nicotine dependence, cigarettes, uncomplicated; Z79.899 Other long term (current) drug therapy
CPT/HCPCS: 11042; 15271; 99213; Q4186; G0463

== ENCOUNTER 2024-12-20 10:30 | Outpatient (RCR) | payer MEDICAID, SELFPAY ==
[2024-12-02 00:41] VITALS: BP 135/75; PULSE 92; RESP 18; TEMP 35.7
[2024-12-06 10:59] VITALS: BP 137/89; PULSE 83; RESP 18; TEMP 36.6
--- NOTE | 2024-12-06 13:13 | PCM.WC.PN ---
History of Present Illness Date of Service: 12/06/24 Chief Complaint: Left lateral ankle ulceration History of Wound: Patient is a 63-year-old male who presents to the wound care center for continued care of his left lateral lower extremity ulceration secondary to dehiscence of surgical wound related to venous insufficiency/varicosity in the regional area. He did undergo ORIF of the left lateral malleolus on 08/31/2024 at [facility]. Due to continued edema and varicose vein he did experience irritation of this vein around the surgical site which did lead to dehiscence at the most distal portion of the incision site. He did undergo 3 weeks of local wound care prior to presentation to the wound center on 10/11/2024. At that time Denise was being applied with serial debridement performed weekly. There was also cultures obtained demonstrating E. coli and he had completed course of oral doxycycline and is finishing oral ciprofloxacin. He does state that the site is tender and does cause some discomfort if continued irritation is present. He does attempt to elevate lower extremity at times of rest to aid in his edema control. He denies N/V/F/chills. Denies further complaints. Subjective Subjective Patient is a 63-year-old male who returns to the wound care center today for continued healing of his left ankle ulceration. Continues to keep dressings clean, dry, and intact. States he feels well overall with pain improving as we are refraining from debridement. Denies constitutional symptoms. Denies further complaints. Objective Data Objective Data Vital Signs: Vital Signs Temp Pulse Resp BP O2 Del Method 97.9 F 83 18 137/89 H Room Air 12/06/24 10:59 12/06/24 10:59 12/06/24 10:59 12/06/24 10:59 12/06/24 10:59 Oxygen Delivery Method Room Air Physical Exam Const alert, oriented x3 and no apparent distress General Appearance: cooperative HEENT normocephalic Eyes General Eye: normal appearance of both eyes Neck General: normal visual inspection Lymph Lymphatic: no lymphadenopathy noted and no lymphedema noted Resp normal respiratory effort Cardio regular rate and regular rhythm Extremity no calf tenderness Extremity Narrative: Left lower extremity: Vascular: DP and PT pulses palpable. CFT is less than 4 seconds in digits. Normal temperature gradient. Hair growth is diminished to lower legs/absent to digits. Neurologic: Epicritic sensation intact. No focal deficits noted. Musculoskeletal: Muscle strength 5 of 5 age-appropriate. No pain to palpation of calf. There is some tenderness to palpation around the ulcerative rim at the distal incision site. Still some residual tenderness to palpation overlying the fracture site at the lateral malleolus. Dermatologic: There are varicosities noted to the lower extremity with some edema noted. Cicatrix to the lateral ankle with distal portion of dehiscence secondary to irritated varicose vein. Ulceration at the distal aspect of the incision site is full-thickness with mixed fibrogranular layer, healing well. No palpable fluctuance/bogginess, no visible abscess formation, no malodor, no purulent drainage. Skin no rashes or lesions noted Neuro moves all extremities Debridement Note Debridement Note No debridement was completed: No debridement was completed today Post-Debridement Measurements and Additional Note: Post-Debridement Measurements/Treatment - Nurse 1 - General Ulcer Assessment Start: 12/06/24 10:59 Freq: Status: Active Protocol: KAT.LOWJONATAN Activity Type Activity Date Activity User E-sign Co-sign Detail Recorded Client Recorded Date Recorded By Document 12/06/24 10:59 [id number] 12/06/24 11:05 12/06/24 10:59 - Today's Visit Information Type of service Follow-up Visit (Physician/WIRE ROLLER ) Arrival Mode Ambulatory, Crutches Patient Identification Verified (Name & Yes ) Vital Signs Temperature (97.8 F-99.1 F) 97.9 F Temperature Source Temporal Pulse Rate (60-100) 83 Pulse Location Monitor Respiratory Rate (12-18) 18 Respiratory rate source Observation Oxygen Delivery Method Room Air Blood Pressure (90/60-120/80) 137/89 H Blood Pressure Mean (mm Hg) 105 Source Monitor Position Semi-Fowlers Blood Pressure Location Left Arm History Since Last Visit- (Skip if this is Patient's initial visit) Have you changed medications since your No last visit? Any new allergies or adverse reactions No Had a fall/change in ADL's that may No increase risk of falls Signs or symptoms of abuse and/or No neglect since last visit Have you been in the hospital since your No last visit? Has dressing in place as prescribed Yes Has compression in place as prescribed Yes Has offloadiing in place as prescribed Yes Experienced any changes in pain level or No management Left Footwear Surgical Shoe with pressure relief insole Right Footwear Regular Shoe Pain Scale: 0-10 Numeric Is Patient Pain Free? Yes WC - Nurse 1 - General Ulcer Measurement Start: 12/06/24 10:59 Freq: Status: Active Protocol: Activity Type Activity Date Activity User E-sign Co-sign Detail Recorded Client Recorded Date Recorded By Document 12/06/24 10:59 SKIP [id number] 12/06/24 11:05 12/06/24 10:59 Wound Center Nurse 1 #1 L LAT ANKLE -Current Size (cm) - Length 0.1 -Current Size (cm) - Width 0.1 -Current Size (cm) - Depth 0 -Total Square Cm 0.01 -Date of Last Picture (Recall this 12/06/24 field) -Texture (Viry-wound Skin Appearance) Assessed -Moisture (Viry-wound Skin Appearance) Assessed -Color (Viry-wound Skin Appearance) Assessed -Temperature (Viry-wound Skin No Abnormality Appearance) (Pt Warm) -Tenderness on Palpation (Viry-wound No Skin Appearance) -Foul Odor after Cleansing No -Wound Comment(s) sutures intact WC - Nurse 2 - General Ulcer CM Notes Start: 12/06/24 10:59 Freq: Status: Active Protocol: Activity Type Activity Date Activity User E-sign Co-sign Detail Recorded Client Recorded Date Recorded By Document 12/06/24 12:[address] [facility] [id number] 12/06/24 12:[address] [facility] 12/06/24 12:46 Wound Center Nurse 2 -Time 12:46 -Procedure Performed No -Post Debridement (cm) - Length 0.1 -Post Debridement (cm) - Width 0.1 -Post Debridement (cm) - Depth 0.1 -Total Square (Post) (cm) 0.01 -Area of Debridement (cm) - Length 0.1 -Area of Debridement (cm) - Width 0.1 -Total Square (Area) (cm) 0.01 -Wound/Ulcer Outcome Not Healed -Bleeding Controlled with NA -Wound Comment(s) sutures remain intact. will remove at next visit Pain Scale: 0-10 Numeric Is Patient Pain Free? Yes KAT - Nurse 3 - General Ulcer D/C NN Start: 12/06/24 10:59 Freq: Status: Active Protocol: Activity Type Activity Date Activity User E-sign Co-sign Detail Recorded Client Recorded Date Recorded By Document 12/06/24 11:05 [id number] 12/06/24 11:05 KW 12/06/24 11:05 Wound Care Center Nurse 3 #1 L LAT ANKLE -Primary Dressing Applied NonAdherent Contact Layer -Other Dressing betadine around sutures, top with adaptic -Primary Dressing Covered/Secured with Dry Gauze & Roll Gauze, Secured with Tape LLE -Compression Wrap Kendrick Wrap Pain Scale: 0-10 Numeric Is Patient Pain Free? Yes WC - Visit Discharge Discharge Condition Stable Ambulatory Status Crutches Transportation Private Auto Medication Reconcilliation completed & No provided to patient/care provider Clinical Summary of Care Provided Yes Assessment/Plan Assessment/Plan (1) Non-pressure chronic ulcer of left ankle with fat layer exposed: CODE(S): L97.322 - Non-pressure chronic ulcer of left ankle with fat layer exposed (2) Displaced fracture of lateral malleolus of left fibula, subsequent encounter for closed fracture with routine healing: CODE(S): S82.62XD - Displaced fracture of lateral malleolus of left fibula, subsequent encounter for closed fracture with routine healing (3) Venous insufficiency (chronic) (peripheral): CODE(S): I87.2 - Venous insufficiency (chronic) (peripheral) (4) Localized edema: CODE(S): R60.0 - Localized edema (5) Nicotine dependence, unspecified, uncomplicated: CODE(S): F17.200 - Nicotine dependence, unspecified, uncomplicated PLAN: Plan Patient seen and evaluated He is s/p ORIF of the distal fibula with intramedullary wyatt fixation. DOS 08/31/2024. POD #97 Currently 3 months out from surgery Predebridement measurement: 0.1 cm x 0.1 cm x 0.1 cm Ulceration was not debrided as noted in the clinical panel above. Postdebridement measurement 0.1 cm x 0.1 cm x 0.1 cm. No signs of infection to ulcerative site. EpiFix graft #4 was applied to the base of the ulcerative site on 11/08/24. Will refrain from graft placement at this time. Sutures intact at site. Site was dressed with Betadine, Adaptic and dry sterile dressing. He is instructed to leave this dressing in place and keep it clean, dry, and intact and utilize a cast bag when showering to maintain compliance. There is improvement in ulcerative size versus previous visit and site remains stable. He finished oral antibiotic, ciprofloxacin 500 mg twice daily (stop date 10/18/2024). Patient did have cultures obtained in office which demonstrate E. coli. He did finish his oral antibiotic of doxycycline prior to starting the ciprofloxacin. Discussed continuing to elevate lower extremities at all times of rest to aid in edema control. Discussed keeping site clean and dry and to wash with soap and water separate from his shower. He is to keep dressing intact while showering to prevent infection. He was approved for application of advanced wound care product, EpiFix as his ulceration has been caused by an irritated varicose vein along his incision site in addition to edema from chronic venous stasis. Will continue applying. Discussed continued proper diet with protein intake recommended to aid in wound healing. Cuco supplementation/boost supplementation have been recommended. He is also currently taking gabapentin 100 mg 3 times daily for associated nerve pain in addition to naproxen 500 mg every 12 hours for wound pain in addition to famotidine 20 mg tablet every 12 hours. I did discuss signs and symptoms of infection with the patient today. Discussed that if he notices increasing redness around the ulcerative site, purulent drainage from the ulcerative bed, increasing foul odor from the ulcerative site, or if he experiences fever greater than 101 degree accompanied by nausea, vomiting, chills that these are signs of a progressing infection and he should report to the ED for IV antibiotics and for further evaluation. He voices understanding of this today. Currently patient is healing the fracture site well and now ambulating in surgical shoe. Plan will be to transition patient back to shoe gear as he is roughly 12 weeks out from placement of his intramedullary wyatt, however he continues ambulation in post operative shoe as wound undergoes healing. I have also discussed with the patient the need for smoking cessation to aid in his healing. The following work up and care recommendations were made: Dressing: Adaptic over suture site, dry sterile dressing, 4 inch Kendrick wrap. Otherwise keep all dressings clean, dry, and intact and utilize cast bag when showering. Wash: Do not get wet Tissue growth optimization: EpiFix Offload: SAP XL dressing and do not place pressure on lateral ankle Vascular: Does have palpable pedal pulses do not feel vascular is impacting healing status. Do feel that venous stasis has contributed to ulcerative site. Edema: Mild edema secondary to chronic venous stasis will continue to elevate lower extremity at all times of rest and eventual transition to a compression stocking. Infection: There is resolving erythema around the ulcerative site currently taking ciprofloxacin as stated above. Pain: Currently on ibuprofen 800 mg and gabapentin 300 mg daily as stated above. Host factors: Chronic venous stasis, nicotine dependence Discussed removal of sutures at next visit I answered all the patient's questions. To return to the wound healing center in 1 week or call sooner if the patient has any questions or concerns.
--- NOTE | 2024-12-07 08:45 | WC ---
PHOTO 12/06/24 LEFT ANKLE
[2024-12-13 11:03] VITALS: BP 120/79; PULSE 83; RESP 18; TEMP 36.2
--- NOTE | 2024-12-13 12:42 | PCM.WC.PN ---
History of Present Illness Date of Service: 12/13/24 Chief Complaint: Left lateral ankle ulceration History of Wound: Patient is a 63-year-old male who presents to the wound care center for continued care of his left lateral lower extremity ulceration secondary to dehiscence of surgical wound related to venous insufficiency/varicosity in the regional area. He did undergo ORIF of the left lateral malleolus on 08/31/2024 at [facility]. Due to continued edema and varicose vein he did experience irritation of this vein around the surgical site which did lead to dehiscence at the most distal portion of the incision site. He did undergo 3 weeks of local wound care prior to presentation to the wound center on 10/11/2024. At that time Denise was being applied with serial debridement performed weekly. There was also cultures obtained demonstrating E. coli and he had completed course of oral doxycycline and is finishing oral ciprofloxacin. He does state that the site is tender and does cause some discomfort if continued irritation is present. He does attempt to elevate lower extremity at times of rest to aid in his edema control. He denies N/V/F/chills. Denies further complaints. Subjective Subjective Patient is a 63-year-old male who returns to the wound care center today for continued healing of his left ankle ulceration. Continues to keep dressings clean, dry, and intact. States the site is looking good. Denies constitutional symptoms. Denies further complaints. Objective Data Objective Data Vital Signs: Vital Signs Temp Pulse Resp BP O2 Del Method 97.1 F L 83 18 120/79 Room Air 12/13/24 11:03 12/13/24 11:03 12/13/24 11:03 12/13/24 11:12/06/24 10:59 Oxygen Delivery Method Room Air Physical Exam Const alert, oriented x3 and no apparent distress General Appearance: cooperative HEENT normocephalic Eyes General Eye: normal appearance of both eyes Neck General: normal visual inspection Lymph Lymphatic: no lymphadenopathy noted and no lymphedema noted Resp normal respiratory effort Cardio regular rate and regular rhythm Extremity no calf tenderness Extremity Narrative: Left lower extremity: Vascular: DP and PT pulses palpable. CFT is less than 4 seconds in digits. Normal temperature gradient. Hair growth is diminished to lower legs/absent to digits. Neurologic: Epicritic sensation intact. No focal deficits noted. Musculoskeletal: Muscle strength 5 of 5 age-appropriate. No pain to palpation of calf. There is some tenderness to palpation around the ulcerative rim at the distal incision site. Still some residual tenderness to palpation overlying the fracture site at the lateral malleolus. Dermatologic: There are varicosities noted to the lower extremity with some edema noted. Cicatrix to the lateral ankle with distal portion of dehiscence secondary to irritated varicose vein. Ulceration at the distal aspect of the incision site is full-thickness with mixed fibrogranular layer, healing well. No palpable fluctuance/bogginess, no visible abscess formation, no malodor, no purulent drainage. Skin no rashes or lesions noted Neuro moves all extremities Debridement Note Debridement Note No debridement was completed: No debridement was completed today Post-Debridement Measurements and Additional Note: Post-Debridement Measurements/Treatment - Nurse 1 - General Ulcer Assessment Start: 12/06/24 10:59 Freq: Status: Active Protocol: WC.LOWJONATAN Activity Type Activity Date Activity User E-sign Co-sign Detail Recorded Client Recorded Date Recorded By Document 12/06/24 10:59 KW [id number] 12/06/24 11:05 KW Document 12/13/24 11:03 DL [id number] 12/13/24 11:07 DL 12/06/24 12/13/24 10:59 11:03 - Today's Visit Information Type of service Follow-up Visit Follow-up Visit (Physician/REPORT SPECIALIST (Physician/REPORT SPECIALIST ) ) Arrival Mode Ambulatory, Ambulatory, Crutches Crutches Transfer Assistance None Patient Identification Verified (Name & Yes Yes ) Patient Requires Transmission-Based No Precautions Vital Signs Temperature (97.8 F-99.1 F) 97.9 F 97.1 F L Temperature Source Temporal Temporal Pulse Rate (60-100) 83 83 Pulse Location Monitor Monitor Respiratory Rate (12-18) 18 18 Respiratory rate source Observation Observation Oxygen Delivery Method Room Air Blood Pressure (90/60-120/80) 137/89 H 120/79 Blood Pressure Mean (mm Hg) 105 92 Source Monitor Monitor Position Semi-Fowlers Blood Pressure Location Left Arm History Since Last Visit- (Skip if this is Patient's initial visit) Have you changed medications since your No No last visit? Any new allergies or adverse reactions No No Had a fall/change in ADL's that may No No increase risk of falls Signs or symptoms of abuse and/or No No neglect since last visit Have you been in the hospital since your No No last visit? Has dressing in place as prescribed Yes Yes Has compression in place as prescribed Yes N/A Has offloadiing in place as prescribed Yes Yes Experienced any changes in pain level or No No management Left Footwear Surgical Shoe with pressure relief insole Right Footwear Regular Shoe Pain Scale: 0-10 Numeric Is Patient Pain Free? Yes Yes WC - Nurse 1 - General Ulcer Measurement Start: 12/06/24 10:59 Freq: Status: Active Protocol: Activity Type Activity Date Activity User E-sign Co-sign Detail Recorded Client Recorded Date Recorded By Document 12/06/24 10:59 KW [id number] 12/06/24 11:05 KW Document 12/13/24 11:03 DL [id number] 12/13/24 11:07 DL 12/06/24 12/13/24 10:59 11:03 Wound Center Nurse 1 #1 L LAT ANKLE -Current Size (cm) - Length 0.1 0.1 -Current Size (cm) - Width 0.1 0.1 -Current Size (cm) - Depth 0 0.1 -Total Square Cm 0.01 0.01 -Date of Last Picture (Recall this 12/06/24 field) -Epithelialization Large 67-100% -Texture (Viry-wound Skin Appearance) Assessed -Moisture (Viry-wound Skin Appearance) Assessed -Color (Viry-wound Skin Appearance) Assessed -Temperature (Viry-wound Skin No Abnormality Appearance) (Pt Warm) -Tenderness on Palpation (Viry-wound No Skin Appearance) -Foul Odor after Cleansing No -Wound Comment(s) sutures intact sutures intact WC - Nurse 2 - General Ulcer CM Notes Start: 12/06/24 10:59 Freq: Status: Active Protocol: Activity Type Activity Date Activity User E-sign Co-sign Detail Recorded Client Recorded Date Recorded By Document 12/06/24 12:46 BM [id number] 12/06/24 12:47 BM Document 12/13/24 11:08 BM [id number] 12/13/24 11:11 BMF 12/06/24 12/13/24 12:46 11:08 Wound Center Nurse 2 #1 L LAT ANKLE -Time 12:46 11:08 -Procedure Performed No No -Post Debridement (cm) - Length 0.1 0.1 -Post Debridement (cm) - Width 0.1 0.1 -Post Debridement (cm) - Depth 0.1 0.1 -Total Square (Post) (cm) 0.01 0.01 -Area of Debridement (cm) - Length 0.1 0.1 -Area of Debridement (cm) - Width 0.1 0.1 -Total Square (Area) (cm) 0.01 0.01 -Tunneling No -Undermining/Tunneling No -Circular Undermining No -Wound/Ulcer Outcome Not Healed Not Healed -Bleeding Controlled with NA -Wound Comment(s) sutures remain sutures removed intact. will remove at next visit Pain Scale: 0-10 Numeric Is Patient Pain Free? Yes Yes - Nurse 3 - General Ulcer D/C NN Start: 12/06/24 10:59 Freq: Status: Active Protocol: Activity Type Activity Date Activity User E-sign Co-sign Detail Recorded Client Recorded Date Recorded By Document 12/06/24 11:05 [id number] 12/06/24 11:05 KW Document 12/13/24 11:16 DL [id number] 12/13/24 11:17 DL 12/06/24 12/13/24 11:05 11:16 Wound Care Center Nurse 3 #1 L LAT ANKLE -Ulcer Cleansing Rinsed/ Irrigated with Saline -Foul Odor after Cleansing No -Primary Dressing Applied NonAdherent Silicone Border Contact Layer Foam 4x4 -Other Dressing betadine around sutures, top with adaptic -Primary Dressing Covered/Secured with Dry Gauze & Roll Gauze, Secured with Tape -Other Covering Kendrick per pt request -Silicone Border Foam 4x4 1 -Wound Comment(s) Sutures removed today per Dr. Kaba. LLE -Compression Wrap Kendrick Wrap Treatment Response Procedure Tolerated Well Pain Scale: 0-10 Numeric Is Patient Pain Free? Yes Yes WC - Visit Discharge Discharge Condition Stable Stable Ambulatory Status Crutches Ambulatory, Crutches Transportation Private Auto Private Auto Medication Reconcilliation completed & No provided to patient/care provider Clinical Summary of Care Provided Yes Assessment/Plan Assessment/Plan (1) Non-pressure chronic ulcer of left ankle with fat layer exposed: CODE(S): L97.322 - Non-pressure chronic ulcer of left ankle with fat layer exposed (2) Displaced fracture of lateral malleolus of left fibula, subsequent encounter for closed fracture with routine healing: CODE(S): S82.62XD - Displaced fracture of lateral malleolus of left fibula, subsequent encounter for closed fracture with routine healing (3) Venous insufficiency (chronic) (peripheral): CODE(S): I87.2 - Venous insufficiency (chronic) (peripheral) (4) Localized edema: CODE(S): R60.0 - Localized edema (5) Nicotine dependence, unspecified, uncomplicated: CODE(S): F17.200 - Nicotine dependence, unspecified, uncomplicated PLAN: Plan Patient seen and evaluated He is s/p ORIF of the distal fibula with intramedullary wyatt fixation. DOS 08/31/2024. POD #114 Currently 3 months out from surgery Predebridement measurement: 0.1 cm x 0.1 cm x 0.1 cm Ulceration was not debrided as noted in the clinical panel above. Postdebridement measurement 0.1 cm x 0.1 cm x 0.1 cm. No signs of infection to ulcerative site. EpiFix graft #4 was applied to the base of the ulcerative site on 11/08/24. Will refrain from graft placement at this time. Sutures intact at site. Sutures removed atraumatically. Site was dressed with Betadine and dry protective dressing. He is instructed to leave this dressing in place and keep it clean, dry, and intact and utilize a cast bag when showering to maintain compliance for the next 48 hours. After this he may remove dressing and wash site with soap and water. There is improvement in ulcerative size versus previous visit and site remains stable. He finished oral antibiotic, ciprofloxacin 500 mg twice daily (stop date 10/18/2024). Patient did have cultures obtained in office which demonstrate E. coli. He did finish his oral antibiotic of doxycycline prior to starting the ciprofloxacin. Discussed continuing to elevate lower extremities at all times of rest to aid in edema control. He was approved for application of advanced wound care product, EpiFix as his ulceration has been caused by an irritated varicose vein along his incision site in addition to edema from chronic venous stasis. Will continue applying. Discussed continued proper diet with protein intake recommended to aid in wound healing. Cuco supplementation/boost supplementation have been recommended. He is also currently taking gabapentin 100 mg 3 times daily for associated nerve pain in addition to naproxen 500 mg every 12 hours for wound pain in addition to famotidine 20 mg tablet every 12 hours. I did discuss signs and symptoms of infection with the patient today. Discussed that if he notices increasing redness around the ulcerative site, purulent drainage from the ulcerative bed, increasing foul odor from the ulcerative site, or if he experiences fever greater than 101 degree accompanied by nausea, vomiting, chills that these are signs of a progressing infection and he should report to the ED for IV antibiotics and for further evaluation. He voices understanding of this today. Currently patient is healing the fracture site well and now ambulating in surgical shoe. Plan will be to transition patient back to shoe gear as he is roughly 12 weeks out from placement of his intramedullary wyatt, however he continues ambulation in post operative shoe as wound undergoes healing. I have also discussed with the patient the need for smoking cessation to aid in his healing. The following work up and care recommendations were made: Dressing: Dry sterile dressing for the next 48 hours he may then remove and wash with soap and water. Wash: Do not get wet for the next 48 hours Tissue growth optimization: EpiFix Offload: SAP XL dressing and do not place pressure on lateral ankle Vascular: Does have palpable pedal pulses do not feel vascular is impacting healing status. Do feel that venous stasis has contributed to ulcerative site. Edema: Mild edema secondary to chronic venous stasis will continue to elevate lower extremity at all times of rest and eventual transition to a compression stocking. Infection: There is resolving erythema around the ulcerative site currently taking ciprofloxacin as stated above. Pain: Currently on ibuprofen 800 mg and gabapentin 300 mg daily as stated above. Host factors: Chronic venous stasis, nicotine dependence I answered all the patient's questions. To return to the wound healing center in 1 week or call sooner if the patient has any questions or concerns.
[2024-12-20 11:16] VITALS: BP 130/87; PULSE 70; RESP 18; TEMP 36.7
--- NOTE | 2024-12-20 12:19 | PN.PCM_ITS ---
History of Present Illness Date of Service: 12/20/24 Chief Complaint: Left lateral ankle ulceration History of Wound: Patient is a 63-year-old male who presents to the wound care center for continued care of his left lateral lower extremity ulceration secondary to dehiscence of surgical wound related to venous insufficiency/varicosity in the regional area. He did undergo ORIF of the left lateral malleolus on 08/31/2024 at [facility]. Due to continued edema and varicose vein he did experience irritation of this vein around the surgical site which did lead to dehiscence at the most distal portion of the incision site. He did undergo 3 weeks of local wound care prior to presentation to the wound center on 10/11/2024. At that time Denise was being applied with serial debridement performed weekly. There was also cultures obtained demonstrating E. coli and he had completed course of oral doxycycline and is finishing oral ciprofloxacin. He does state that the site is tender and does cause some discomfort if continued irritation is present. He does attempt to elevate lower extremity at times of rest to aid in his edema control. He denies N/V/F/chills. Denies further complaints. Subjective Subjective Patient is a 63-year-old male who returns to the wound care center today for continued healing of his left ankle ulceration. Reports site continues to improve. He is still padding and protecting site. Has returned to shoe gear. Denies constitutional symptoms. Denies further complaints. Objective Data Objective Data Vital Signs: Vital Signs Temp Pulse Resp BP O2 Del Method 98.1 F 70 18 130/87 H Room Air 12/20/24 11:16 12/20/24 11:16 12/20/24 11:16 12/20/24 11:16 12/06/24 10:59 Oxygen Delivery Method Room Air Physical Exam Const alert, oriented x3 and no apparent distress General Appearance: cooperative HEENT normocephalic Eyes General Eye: normal appearance of both eyes Neck General: normal visual inspection Lymph Lymphatic: no lymphadenopathy noted and no lymphedema noted Resp normal respiratory effort Cardio regular rate and regular rhythm Extremity no calf tenderness Extremity Narrative: Left lower extremity: Vascular: DP and PT pulses palpable. CFT is less than 4 seconds in digits. Normal temperature gradient. Hair growth is diminished to lower legs/absent to digits. Neurologic: Epicritic sensation intact. No focal deficits noted. Musculoskeletal: Muscle strength 5 of 5 age-appropriate. No pain to palpation of calf. There is some tenderness to palpation around the ulcerative rim at the distal incision site. Still some residual tenderness to palpation overlying the fracture site at the lateral malleolus. Dermatologic: There are varicosities noted to the lower extremity with some edema noted. Cicatrix to the lateral ankle with distal portion of dehiscence secondary to irritated varicose vein. Ulceration at the distal aspect of the incision site is full-thickness with mixed fibrogranular layer, healing well. No palpable fluctuance/bogginess, no visible abscess formation, no malodor, no purulent drainage. Skin no rashes or lesions noted Neuro moves all extremities Debridement Note Debridement Note No debridement was completed: No debridement was completed today Post-Debridement Measurements and Additional Note: Post-Debridement Measurements/Treatment - Nurse 1 - General Ulcer Assessment Start: 12/06/24 10:59 Freq: Status: Active Protocol: KAT.LOWJONATAN Activity Type Activity Date Activity User E-sign Co-sign Detail Recorded Client Recorded Date Recorded By Document 12/06/24 10:59 KW [id number] 12/06/24 11:05 KW Document 12/13/24 11:03 DL [id number] 12/13/24 11:07 DL Document 12/20/24 11:16 DL [id number] 12/20/24 11:22 DL 12/06/24 12/13/24 12/20/24 10:59 11:03 11:16 - Today's Visit Information Type of service Follow-up Visit Follow-up Visit Follow-up Visit (Physician/MIS SPECIALIST (Physician/MIS SPECIALIST (Physician/MIS SPECIALIST ) ) ) Arrival Mode Ambulatory, Ambulatory, Ambulatory, Crutches Crutches Crutches Transfer Assistance None None Patient Identification Verified (Name & Yes Yes Yes ) Patient Requires Transmission-Based No No Precautions Vital Signs Temperature (97.8 F-99.1 F) 97.9 F 97.1 F L 98.1 F Temperature Source Temporal Temporal Temporal Pulse Rate (60-100) 83 83 70 Pulse Location Monitor Monitor Monitor Respiratory Rate (12-18) 18 18 18 Respiratory rate source Observation Observation Oxygen Delivery Method Room Air Blood Pressure (90/60-120/80) 137/89 H 120/79 130/87 H Blood Pressure Mean (mm Hg) 105 92 101 Source Monitor Monitor Monitor Position Semi-Fowlers Blood Pressure Location Left Arm History Since Last Visit- (Skip if this is Patient's initial visit) Have you changed medications since your No No No last visit? Any new allergies or adverse reactions No No No Had a fall/change in ADL's that may No No No increase risk of falls Signs or symptoms of abuse and/or No No No neglect since last visit Have you been in the hospital since your No No No last visit? Has dressing in place as prescribed Yes Yes Yes Has compression in place as prescribed Yes N/A N/A Has offloadiing in place as prescribed Yes Yes Yes Experienced any changes in pain level or No No No management Left Footwear Surgical Shoe with pressure relief insole Right Footwear Regular Shoe Pain Scale: 0-10 Numeric Is Patient Pain Free? Yes Yes Yes WC - Nurse 1 - General Ulcer Measurement Start: 12/06/24 10:59 Freq: Status: Active Protocol: Activity Type Activity Date Activity User E-sign Co-sign Detail Recorded Client Recorded Date Recorded By Document 12/06/24 10:59 KW [id number] 12/06/24 11:05 KW Document 12/13/24 11:03 DL [id number] 12/13/24 11:07 DL Document 12/20/24 11:16 DL [id number] 12/20/24 11:22 DL 12/06/24 12/13/24 12/20/24 10:59 11:03 11:16 Wound Center Nurse 1 #1 L LAT ANKLE -Current Size (cm) - Length 0.1 0.1 0.2 -Current Size (cm) - Width 0.1 0.1 0.2 -Current Size (cm) - Depth 0 0.1 0.2 -Total Square Cm 0.01 0.01 0.04 -Date of Last Picture (Recall this 12/06/24 field) -Photo Taken Yes -Epithelialization Large 67-100% -Exudate Amt None Present -Wound Margin Distinct, Outline Attached -Granulation Amt Small (1-33%) -Granulation Quality [place] -Necrosis Amt None Present (0 %) -Structure Exposed N/A -Texture (Viry-wound Skin Appearance) Assessed Scarring -Moisture (Viry-wound Skin Appearance) Assessed No Abnormality -Color (Viry-wound Skin Appearance) Assessed No Abnormality -Temperature (Viry-wound Skin No Abnormality No Abnormality Appearance) (Pt Warm) (Pt Warm) -Tenderness on Palpation (Viry-wound No No Skin Appearance) -Ulcer Cleansing Rinsed/ Irrigated with Saline -Foul Odor after Cleansing No -Wound Comment(s) sutures intact sutures intact WC - Nurse 2 - General Ulcer CM Notes Start: 12/06/24 10:59 Freq: Status: Active Protocol: Activity Type Activity Date Activity User E-sign Co-sign Detail Recorded Client Recorded Date Recorded By Document 12/06/24 12:46 [facility] [id number] 12/06/24 12:47 BM Document 12/13/24 11:08 BMF [id number] 12/13/24 11:11 BM Document 12/20/24 11:27 [facility] [id number] 12/20/24 11:29 F 12/06/24 12/13/24 12/20/24 12:46 11:08 11:27 Wound Center Nurse 2 #1 L LAT ANKLE -Time 12:46 11:08 11:27 -Procedure Performed No No No -Post Debridement (cm) - Length 0.1 0.1 0.1 -Post Debridement (cm) - Width 0.1 0.1 0.1 -Post Debridement (cm) - Depth 0.1 0.1 0.1 -Total Square (Post) (cm) 0.01 0.01 0.01 -Area of Debridement (cm) - Length 0.1 0.1 0.1 -Area of Debridement (cm) - Width 0.1 0.1 0.1 -Total Square (Area) (cm) 0.01 0.01 0.01 -Tunneling No No -Undermining/Tunneling No No -Circular Undermining No No -Wound/Ulcer Outcome Not Healed Not Healed Not Healed -Bleeding Controlled with NA NA -Wound Comment(s) sutures remain sutures removed intact. will remove at next visit Pain Scale: 0-10 Numeric Is Patient Pain Free? Yes Yes Yes WC - Nurse 3 - General Ulcer D/C NN Start: 12/06/24 10:59 Freq: Status: Active Protocol: Activity Type Activity Date Activity User E-sign Co-sign Detail Recorded Client Recorded Date Recorded By Document 12/06/24 11:05 KW [id number] 12/06/24 11:05 KW Document 12/13/24 11:16 DL [id number] 12/13/24 11:17 DL Document 12/20/24 11:29 BM [id number] 12/20/24 11:30 [facility] 12/06/24 12/13/24 12/20/24 11:05 11:16 11:29 Wound Care Center Nurse 3 #1 L LAT ANKLE -Ulcer Cleansing Rinsed/ Irrigated with Saline -Foul Odor after Cleansing No -Primary Dressing Applied NonAdherent Silicone Border Contact Layer Foam 4x4 -Other Dressing betadine around bandaid to pad/ sutures, top protect with adaptic -Primary Dressing Covered/Secured with Dry Gauze & Roll Gauze, Secured with Tape -Other Covering Kendrick per pt request -Silicone Border Foam 4x4 1 -Wound Comment(s) Sutures removed today per Dr. Kaba. LLE -Compression Wrap Kendrick Wrap Treatment Response Procedure Procedure Tolerated Well Tolerated Well Pain Scale: 0-10 Numeric Is Patient Pain Free? Yes Yes Yes WC - Visit Discharge Discharge Condition Stable Stable Stable Ambulatory Status Crutches Ambulatory, Ambulatory Crutches Transportation Private Auto Private Auto Private Auto Medication Reconcilliation completed & No provided to patient/care provider Clinical Summary of Care Provided Yes Assessment/Plan Assessment/Plan (1) Non-pressure chronic ulcer of left ankle with fat layer exposed: CODE(S): L97.322 - Non-pressure chronic ulcer of left ankle with fat layer exposed (2) Displaced fracture of lateral malleolus of left fibula, subsequent encounter for closed fracture with routine healing: CODE(S): S82.62XD - Displaced fracture of lateral malleolus of left fibula, subsequent encounter for closed fracture with routine healing (3) Venous insufficiency (chronic) (peripheral): CODE(S): I87.2 - Venous insufficiency (chronic) (peripheral) (4) Localized edema: CODE(S): R60.0 - Localized edema (5) Nicotine dependence, unspecified, uncomplicated: CODE(S): F17.200 - Nicotine dependence, unspecified, uncomplicated PLAN: Plan Patient seen and evaluated He is s/p ORIF of the distal fibula with intramedullary wyatt fixation. DOS 08/31. POD #121 Currently 3 months out from surgery Predebridement measurement: 0.1 cm x 0.1 cm x 0.1 cm Ulceration was not debrided as noted in the clinical panel above. Postdebridement measurement 0.1 cm x 0.1 cm x 0.1 cm. No signs of infection to ulcerative site. EpiFix graft #4 was applied to the base of the ulcerative site on 11/08/24. Will refrain from graft placement at this time. Cicatrix lateral ankle with small superficial ulceration remaining most distally. Site dressed with antibiotic ointment and bandaid to pad and protect. There is improvement in ulcerative size versus previous visit and site remains stable. He finished oral antibiotic, ciprofloxacin 500 mg twice daily (stop date 10/18/2024). Patient did have cultures obtained in office which demonstrate E. coli. He did finish his oral antibiotic of doxycycline prior to starting the ciprofloxacin. Discussed continuing to elevate lower extremities at all times of rest to aid in edema control. He was approved for application of advanced wound care product, EpiFix as his ulceration has been caused by an irritated varicose vein along his incision site in addition to edema from chronic venous stasis. Will continue applying. Discussed continued proper diet with protein intake recommended to aid in wound healing. Cuco supplementation/boost supplementation have been recommended. He is also currently taking gabapentin 100 mg 3 times daily for associated nerve pain in addition to naproxen 500 mg every 12 hours for wound pain in addition to famotidine 20 mg tablet every 12 hours. I did discuss signs and symptoms of infection with the patient today. Discussed that if he notices increasing redness around the ulcerative site, purulent drainage from the ulcerative bed, increasing foul odor from the ulcerative site, or if he experiences fever greater than 101 degree accompanied by nausea, vomiting, chills that these are signs of a progressing infection and he should report to the ED for IV antibiotics and for further evaluation. He voices understanding of this today. Currently patient is healing the fracture site well and now ambulating in shoe gear. The following work up and care recommendations were made: Dressing: Antibiotic ointment and Band-Aid. May change daily Wash: Soap and water Tissue growth optimization: None Offload: do not place pressure on lateral ankle Vascular: Does have palpable pedal pulses do not feel vascular is impacting healing status. Do feel that venous stasis has contributed to ulcerative site. Edema: Mild edema secondary to chronic venous stasis will continue to elevate lower extremity at all times of rest and eventual transition to a compression stocking. Infection: None Pain: Currently on ibuprofen 800 mg and gabapentin 300 mg daily as stated above. Host factors: Chronic venous stasis, nicotine dependence I answered all the patient's questions. To return to the wound healing center in 2 weeks or call sooner if the patient has any questions or concerns.
== END 2024-12-31 23:59 | disposition home or self-care (01) ==
LOC: WC 10:30
PROVIDERS: PCP Surgery Vascular Surgery; Referring Provider Student in an Organized Health Care Education/Training Program; Visit Provider Student in an Organized Health Care Education/Training Program
DX: I83.023 Varicose veins of left lower extremity with ulcer of ankle (principal); L97.322 Non-pressure chronic ulcer of left ankle with fat layer exposed; T81.31XA Disruption of external operation (surgical) wound, not elsewhere classified, initial encounter; Y83.8 Other surgical procedures as the cause of abnormal reaction of the patient, or of later complication, without mention of misadventure at the time of the procedure; R60.0 Localized edema; F17.200 Nicotine dependence, unspecified, uncomplicated
CPT/HCPCS: 99213; G0463

== ENCOUNTER 2025-01-17 11:00 | Outpatient (RCR) | payer MEDICAID, SELFPAY ==
[2025-01-03 11:38] VITALS: BP 135/86; PULSE 76; RESP 16; TEMP 36.1
--- NOTE | 2025-01-03 13:06 | PCM.WC.PN ---
History of Present Illness Date of Service: 01/03/25 Chief Complaint: Left lateral ankle ulceration History of Wound: Patient is a 63-year-old male who presents to the wound care center for continued care of his left lateral lower extremity ulceration secondary to dehiscence of surgical wound related to venous insufficiency/varicosity in the regional area. He did undergo ORIF of the left lateral malleolus on 08/31/2024 at [facility]. Due to continued edema and varicose vein he did experience irritation of this vein around the surgical site which did lead to dehiscence at the most distal portion of the incision site. He did undergo 3 weeks of local wound care prior to presentation to the wound center on 10/11/2024. At that time Denise was being applied with serial debridement performed weekly. There was also cultures obtained demonstrating E. coli and he had completed course of oral doxycycline and is finishing oral ciprofloxacin. He does state that the site is tender and does cause some discomfort if continued irritation is present. He does attempt to elevate lower extremity at times of rest to aid in his edema control. He denies N/V/F/chills. Denies further complaints. Subjective Subjective Patient is a 63-year-old male who returns to the wound care center today for continued healing of his left ankle ulceration. Reports site continues to improve. He is still padding and protecting site. Has returned to shoe gear and ambulating well without assistance. Denies constitutional symptoms. Denies further complaints. Objective Data Objective Data Vital Signs: Vital Signs Temp Pulse Resp BP O2 Del Method 97.0 F L 76 16 135/86 H Room Air 01/03/25 11:38 01/03/25 11:38 01/03/25 11:38 01/03/25 11:38 01/03/25 11:38 Oxygen Delivery Method Room Air Physical Exam Const alert, oriented x3 and no apparent distress General Appearance: cooperative HEENT normocephalic Eyes General Eye: normal appearance of both eyes Neck General: normal visual inspection Lymph Lymphatic: no lymphadenopathy noted and no lymphedema noted Resp normal respiratory effort Cardio regular rate and regular rhythm Extremity no calf tenderness Extremity Narrative: Left lower extremity: Vascular: DP and PT pulses palpable. CFT is less than 4 seconds in digits. Normal temperature gradient. Hair growth is diminished to lower legs/absent to digits. Neurologic: Epicritic sensation intact. No focal deficits noted. Musculoskeletal: Muscle strength 5 of 5 age-appropriate. No pain to palpation of calf. There is some tenderness to palpation around the ulcerative rim at the distal incision site. Still some residual tenderness to palpation overlying the fracture site at the lateral malleolus. Dermatologic: There are varicosities noted to the lower extremity with some edema noted. Cicatrix to the lateral ankle with distal portion of dehiscence secondary to irritated varicose vein. Ulceration at the distal aspect of the incision site is full-thickness with granular layer, healing well and nearing closure. No palpable fluctuance/bogginess, no visible abscess formation, no malodor, no purulent drainage. Skin no rashes or lesions noted Neuro moves all extremities Debridement Note Debridement Note No debridement was completed: No debridement was completed today Post-Debridement Measurements and Additional Note: Post-Debridement Measurements/Treatment WC - Nurse 1 - General Ulcer Assessment Start: 01/03/25 11:38 Freq: Status: Active Protocol: LOWEXT Activity Type Activity Date Activity User E-sign Co-sign Detail Recorded Client Recorded Date Recorded By Document 01/03/25 11:38 [id number] 01/03/25 11:41 KW 01/03/25 11:38 Vital Signs Temperature (97.8 F-99.1 F) 97.0 F L Temperature Source Temporal Pulse Rate (60-100) 76 Pulse Location Monitor Respiratory Rate (12-18) 16 Respiratory rate source Observation Oxygen Delivery Method Room Air Blood Pressure (90/60-120/80) 135/86 H Blood Pressure Mean (mm Hg) 102 Source Monitor Position Semi-Fowlers Blood Pressure Location Right Arm History Since Last Visit- (Skip if this is Patient's initial visit) Have you changed medications since your No last visit? Any new allergies or adverse reactions No Had a fall/change in ADL's that may No increase risk of falls Signs or symptoms of abuse and/or No neglect since last visit Have you been in the hospital since your No last visit? Has dressing in place as prescribed Yes Has compression in place as prescribed Yes Has offloadiing in place as prescribed N/A Experienced any changes in pain level or No management Left Footwear Regular Shoe Right Footwear Regular Shoe Pain Scale: 0-10 Numeric Is Patient Pain Free? Yes - Nurse 1 - General Ulcer Measurement Start: 01/03/25 11:38 Freq: Status: Active Protocol: Activity Type Activity Date Activity User E-sign Co-sign Detail Recorded Client Recorded Date Recorded By Document 01/03/25 11:38 [id number] 01/03/25 11:41 01/03/25 11:38 Wound Center Nurse 1 #1 L LAT ANKLE -Current Size (cm) - Length 0.1 -Current Size (cm) - Width 0.1 -Current Size (cm) - Depth 0.1 -Total Square Cm 0.01 -Date of Last Picture (Recall this 01/03/25 field) -Exudate Amt Small -Exudate Type Serosanguineous -Wound Margin Thickened -Granulation Amt Small (1-33%) -Granulation Quality [place] -Texture (Viry-wound Skin Appearance) Assessed -Moisture (Viry-wound Skin Appearance) Assessed -Color (Viry-wound Skin Appearance) Assessed -Temperature (Viry-wound Skin No Abnormality Appearance) (Pt Warm) -Tenderness on Palpation (Viry-wound No Skin Appearance) -Ulcer Cleansing Rinsed/ Irrigated with Saline -Foul Odor after Cleansing No -Anesthetic Used 5% Lidocaine Gel WC - Nurse 2 - General Ulcer CM Notes Start: 01/03/25 11:38 Freq: Status: Active Protocol: Activity Type Activity Date Activity User E-sign Co-sign Detail Recorded Client Recorded Date Recorded By Document 01/03/25 11:58 [facility] [id number] 01/03/25 12:00 [facility] 01/03/25 11:58 Wound Center Nurse 2 -Time 11:58 -Post Debridement (cm) - Length 0.1 -Post Debridement (cm) - Width 0.1 -Post Debridement (cm) - Depth 0.1 -Total Square (Post) (cm) 0.01 -Area of Debridement (cm) - Length 0.1 -Area of Debridement (cm) - Width 0.1 -Total Square (Area) (cm) 0.01 -Wound/Ulcer Outcome Not Healed -Bleeding Controlled with NA Pain Scale: 0-10 Numeric Is Patient Pain Free? Yes - Nurse 3 - General Ulcer D/C NN Start: 01/03/25 11:38 Freq: Status: Active Protocol: Activity Type Activity Date Activity User E-sign Co-sign Detail Recorded Client Recorded Date Recorded By Document 01/03/25 12:00 [facility] [id number] 01/03/25 12:00 BMF 01/03/25 12:00 Wound Care Center Nurse 3 #1 L LAT ANKLE -Other Dressing BANDAID Pain Scale: 0-10 Numeric Is Patient Pain Free? Yes WC - Visit Discharge Discharge Condition Stable Ambulatory Status Ambulatory Transportation Private Auto Assessment/Plan Assessment/Plan (1) Non-pressure chronic ulcer of left ankle with fat layer exposed: CODE(S): L97.322 - Non-pressure chronic ulcer of left ankle with fat layer exposed (2) Displaced fracture of lateral malleolus of left fibula, subsequent encounter for closed fracture with routine healing: CODE(S): S82.62XD - Displaced fracture of lateral malleolus of left fibula, subsequent encounter for closed fracture with routine healing (3) Venous insufficiency (chronic) (peripheral): CODE(S): I87.2 - Venous insufficiency (chronic) (peripheral) (4) Localized edema: CODE(S): R60.0 - Localized edema PLAN: Plan Patient seen and evaluated He is s/p ORIF of the distal fibula with intramedullary wyatt fixation. DOS 08/31/2024. POD #145 Currently 3 months out from surgery Predebridement measurement: 0.1 cm x 0.1 cm x 0.1 cm Ulceration was not debrided as noted in the clinical panel above. Postdebridement measurement 0.1 cm x 0.1 cm x 0.1 cm. No signs of infection to ulcerative site. EpiFix graft #4 was applied to the base of the ulcerative site on 11/08/24. Will refrain from graft placement at this time. Cicatrix lateral ankle with small superficial ulceration remaining most distally. Site dressed with antibiotic ointment and bandaid to pad and protect. There is continued improvement in ulcerative size versus previous visit and site remains stable and nearing closure. He finished oral antibiotic, ciprofloxacin 500 mg twice daily (stop date 10/18/2024). Patient did have cultures obtained in office which demonstrate E. coli. He did finish his oral antibiotic of doxycycline prior to starting the ciprofloxacin. Discussed continuing to elevate lower extremities at all times of rest to aid in edema control. He was approved for application of advanced wound care product, EpiFix as his ulceration has been caused by an irritated varicose vein along his incision site in addition to edema from chronic venous stasis. Will continue applying. Discussed continued proper diet with protein intake recommended to aid in wound healing. Cuco supplementation/boost supplementation have been recommended. He is also currently taking gabapentin 100 mg 3 times daily for associated nerve pain in addition to naproxen 500 mg every 12 hours for wound pain in addition to famotidine 20 mg tablet every 12 hours. I did discuss signs and symptoms of infection with the patient today. Discussed that if he notices increasing redness around the ulcerative site, purulent drainage from the ulcerative bed, increasing foul odor from the ulcerative site, or if he experiences fever greater than 101 degree accompanied by nausea, vomiting, chills that these are signs of a progressing infection and he should report to the ED for IV antibiotics and for further evaluation. He voices understanding of this today. Currently patient is healing the fracture site well and now ambulating in shoe gear. The following work up and care recommendations were made: Dressing: Band-Aid to pad and protect. May change daily Wash: Soap and water Tissue growth optimization: None Offload: do not place pressure on lateral ankle Vascular: Does have palpable pedal pulses do not feel vascular is impacting healing status. Do feel that venous stasis has contributed to ulcerative site. Edema: Mild edema secondary to chronic venous stasis will continue to elevate lower extremity at all times of rest and eventual transition to a compression stocking. Infection: None Pain: Currently on ibuprofen 800 mg and gabapentin 300 mg daily as stated above. Host factors: Chronic venous stasis, nicotine dependence I answered all the patient's questions. To return to the wound healing center in 2 weeks or call sooner if the patient has any questions or concerns.
--- NOTE | 2025-01-07 09:25 | WC ---
PHOTO 01/03/25 LEFT LATERAL ANKLE
[2025-01-17 11:14] VITALS: BP 144/88; PULSE 83; RESP 16; TEMP 36.4
--- NOTE | 2025-01-17 12:38 | PN.PCM_ITS ---
History of Present Illness Date of Service: 01/17/25 Chief Complaint: Left lateral ankle ulceration History of Wound: Patient is a 63-year-old male who presents to the wound care center for continued care of his left lateral lower extremity ulceration secondary to dehiscence of surgical wound related to venous insufficiency/varicosity in the regional area. He did undergo ORIF of the left lateral malleolus on 08/31/2024 at [facility]. Due to continued edema and varicose vein he did experience irritation of this vein around the surgical site which did lead to dehiscence at the most distal portion of the incision site. He did undergo 3 weeks of local wound care prior to presentation to the wound center on 10/11/2024. At that time Denise was being applied with serial debridement performed weekly. There was also cultures obtained demonstrating E. coli and he had completed course of oral doxycycline and is finishing oral ciprofloxacin. He does state that the site is tender and does cause some discomfort if continued irritation is present. He does attempt to elevate lower extremity at times of rest to aid in his edema control. He denies N/V/F/chills. Denies further complaints. Subjective Subjective Patient is a 63-year-old male who returns to the wound care center today for continued healing of his left ankle ulceration. Reports site is healed. Continues ambulation in shoe gear and ambulating well without assistance. Denies constitutional symptoms. Denies further complaints. Objective Data Objective Data Vital Signs: Vital Signs Temp Pulse Resp BP O2 Del Method 97.6 F L 83 16 144/88 H Room Air 01/17/25 11:14 01/17/25 11:14 01/17/25 11:14 01/17/25 11:14 01/17/25 11:14 Oxygen Delivery Method Room Air Physical Exam Const alert, oriented x3 and no apparent distress General Appearance: cooperative HEENT normocephalic Eyes General Eye: normal appearance of both eyes Neck General: normal visual inspection Lymph Lymphatic: no lymphadenopathy noted and no lymphedema noted Resp normal respiratory effort Cardio regular rate and regular rhythm Extremity no calf tenderness Extremity Narrative: Left lower extremity: Vascular: DP and PT pulses palpable. CFT is less than 4 seconds in digits. Normal temperature gradient. Hair growth is diminished to lower legs/absent to digits. Neurologic: Epicritic sensation intact. No focal deficits noted. Musculoskeletal: Muscle strength 5 of 5 age-appropriate. No pain to palpation of calf. There is some tenderness to palpation around the ulcerative rim at the distal incision site. Still some residual tenderness to palpation overlying the fracture site at the lateral malleolus. Dermatologic: There are varicosities noted to the lower extremity with some edema noted. Cicatrix to the lateral ankle with distal portion of dehiscence secondary to irritated varicose vein. Ulceration at the distal aspect of the incision site has now healed. No palpable fluctuance/bogginess, no visible abscess formation, no malodor, no purulent drainage. Skin no rashes or lesions noted Neuro moves all extremities Debridement Note Debridement Note No debridement was completed: No debridement was completed today Post-Debridement Measurements and Additional Note: Post-Debridement Measurements/Treatment WC - Nurse 1 - General Ulcer Assessment Start: 01/03/25 11:38 Freq: Status: Active Protocol: WC.LOWEXT Activity Type Activity Date Activity User E-sign Co-sign Detail Recorded Client Recorded Date Recorded By Document 01/03/25 11:38 KW [id number] 01/03/25 11:41 KW Document 01/17/25 11:14 KW [id number] 01/17/25 11:19 KW 01/03/25 01/17/25 11:38 11:14 - Today's Visit Information Type of service Follow-up Visit (Physician/DINING ROOM CAPTAIN ) Arrival Mode Ambulatory Patient Identification Verified (Name & Yes ) Vital Signs Temperature (97.8 F-99.1 F) 97.0 F L 97.6 F L Temperature Source Temporal Temporal Pulse Rate (60-100) 76 83 Pulse Location Monitor Monitor Respiratory Rate (12-18) 16 16 Respiratory rate source Observation Observation Oxygen Delivery Method Room Air Room Air Blood Pressure (90/60-120/80) 135/86 H 144/88 H Blood Pressure Mean (mm Hg) 102 106 Source Monitor Monitor Position Semi-Fowlers Semi-Fowlers Blood Pressure Location Right Arm Left Arm History Since Last Visit- (Skip if this is Patient's initial visit) Have you changed medications since your No No last visit? Any new allergies or adverse reactions No No Had a fall/change in ADL's that may No No increase risk of falls Signs or symptoms of abuse and/or No No neglect since last visit Have you been in the hospital since your No No last visit? Has dressing in place as prescribed Yes Yes Has compression in place as prescribed Yes N/A Has offloadiing in place as prescribed N/A N/A Experienced any changes in pain level or No No management Left Footwear Regular Shoe Regular Shoe Right Footwear Regular Shoe Regular Shoe Pain Scale: 0-10 Numeric Is Patient Pain Free? Yes Yes KAT - Nurse 1 - General Ulcer Measurement Start: 01/03/25 11:38 Freq: Status: Active Protocol: Activity Type Activity Date Activity User E-sign Co-sign Detail Recorded Client Recorded Date Recorded By Document 01/03/25 11:38 [id number] 01/03/25 11:41 Document 01/17/25 11:14 [id number] 01/17/25 11:19 KW 01/03/25 01/17/25 11:38 11:14 Wound Center Nurse 1 #1 L LAT ANKLE -Current Size (cm) - Length 0.1 0.1 -Current Size (cm) - Width 0.1 0.1 -Current Size (cm) - Depth 0.1 0.1 -Total Square Cm 0.01 0.01 -Date of Last Picture (Recall this 01/03/25 01/17/25 field) -Epithelialization Large 67-100% -Exudate Amt Small None Present -Exudate Type Serosanguineous -Wound Margin Thickened Distinct, Outline Attached -Granulation Amt Small (1-33%) Small (1-33%) -Granulation Quality Bellflower Bellflower -Texture (Viry-wound Skin Appearance) Assessed Assessed, Scarring -Moisture (Viry-wound Skin Appearance) Assessed Assessed -Color (Viry-wound Skin Appearance) Assessed Assessed -Temperature (Viry-wound Skin No Abnormality Appearance) (Pt Warm) -Tenderness on Palpation (Viry-wound No Skin Appearance) -Ulcer Cleansing Rinsed/ Irrigated with Saline -Foul Odor after Cleansing No No -Anesthetic Used 5% Lidocaine 5% Lidocaine Gel Gel WC - Nurse 2 - General Ulcer CM Notes Start: 01/03/25 11:38 Freq: Status: Active Protocol: Activity Type Activity Date Activity User E-sign Co-sign Detail Recorded Client Recorded Date Recorded By Document 01/03/25 11:58 [facility] [id number] 01/03/25 12:00 BM Document 01/17/25 11:25 BM [id number] 01/17/25 11:26 BM 01/03/25 01/17/25 11:58 11:25 Wound Center Nurse 2 #1 L LAT ANKLE -Time 11:58 11:25 -Procedure Performed No -Post Debridement (cm) - Length 0.1 0 -Post Debridement (cm) - Width 0.1 0 -Post Debridement (cm) - Depth 0.1 0 -Total Square (Post) (cm) 0.01 0 -Area of Debridement (cm) - Length 0.1 0 -Area of Debridement (cm) - Width 0.1 0 -Total Square (Area) (cm) 0.01 0 -Wound/Ulcer Outcome Not Healed Healed- Epithelialized -Bleeding Controlled with NA NA Pain Scale: 0-10 Numeric Is Patient Pain Free? Yes Yes - Nurse 3 - General Ulcer D/C NN Start: 01/03/25 11:38 Freq: Status: Active Protocol: Activity Type Activity Date Activity User E-sign Co-sign Detail Recorded Client Recorded Date Recorded By Document 01/03/25 12:00 [facility] [id number] 01/03/25 12:00 [facility] Document 01/17/25 11:29 [facility] [id number] 01/17/25 11:31 [facility] 01/03/25 01/17/25 12:00 11:29 Wound Care Center Nurse 3 #1 L LAT ANKLE -Other Dressing BANDAID -Wound Comment(s) healed. lota Treatment Response Procedure Tolerated Well Pain Scale: 0-10 Numeric Is Patient Pain Free? Yes Yes - Visit Discharge Discharge Condition Stable Stable Ambulatory Status Ambulatory Ambulatory Transportation Private Auto Private Auto Assessment/Plan Assessment/Plan (1) Non-pressure chronic ulcer of left ankle with fat layer exposed: CODE(S): L97.322 - Non-pressure chronic ulcer of left ankle with fat layer exposed (2) Displaced fracture of lateral malleolus of left fibula, subsequent encounter for closed fracture with routine healing: CODE(S): S82.62XD - Displaced fracture of lateral malleolus of left fibula, subsequent encounter for closed fracture with routine healing (3) Venous insufficiency (chronic) (peripheral): CODE(S): I87.2 - Venous insufficiency (chronic) (peripheral) (4) Localized edema: CODE(S): R60.0 - Localized edema PLAN: Plan Patient seen and evaluated He is s/p ORIF of the distal fibula with intramedullary wyatt fixation. DOS 08/31/2024. POD #[id number] Currently 5 months out from surgery Predebridement measurement: healed Ulceration was not debrided as noted in the clinical panel above. Postdebridement measurement healed. No signs of infection to ulcerative site. EpiFix graft #4 was applied to the base of the ulcerative site on 11/08/24. Will refrain from graft placement at this time as he has healed. Cicatrix lateral ankle. There is continued improvement in ulcerative size versus previous visit and site has now healed. Discussed continuing to elevate lower extremities at all times of rest to aid in edema control. He was approved for application of advanced wound care product, EpiFix as his ulceration has been caused by an irritated varicose vein along his incision site in addition to edema from chronic venous stasis. Discussed continued proper diet with protein intake recommended to aid in wound healing. Cuco supplementation/boost supplementation have been recommended. He is also currently taking gabapentin 100 mg 3 times daily for associated nerve pain in addition to naproxen 500 mg every 12 hours for wound pain in addition to famotidine 20 mg tablet every 12 hours. Currently patient has healed fracture well and continues ambulating in shoe gear. The following work up and care recommendations were made: Dressing: None Wash: Soap and water Tissue growth optimization: None Offload: do not place pressure on lateral ankle Vascular: Does have palpable pedal pulses do not feel vascular is impacting healing status. Do feel that venous stasis has contributed to ulcerative site. Edema: Mild edema secondary to chronic venous stasis will continue to elevate lower extremity at all times of rest and eventual transition to a compression stocking. Infection: None Pain: Currently on Naproxen 500mg BID with Famotidine 20mg BID. Host factors: Chronic venous stasis, nicotine dependence With wound well-healed he is now being discharged from the wound care center. I answered all the patient's questions. To return to the wound healing center in as needed or call sooner if the patient has any questions or concerns.
--- NOTE | 2025-01-21 09:43 | WC ---
PHOTO 01/17/25 LEFT ANKLE
== END 2025-01-31 14:51 | disposition home or self-care (01) ==
LOC: WC 11:00
PROVIDERS: PCP Surgery Vascular Surgery; Referring Provider Student in an Organized Health Care Education/Training Program; Visit Provider Student in an Organized Health Care Education/Training Program
DX: I83.023 Varicose veins of left lower extremity with ulcer of ankle (principal); L97.322 Non-pressure chronic ulcer of left ankle with fat layer exposed; T81.31XA Disruption of external operation (surgical) wound, not elsewhere classified, initial encounter; Y83.8 Other surgical procedures as the cause of abnormal reaction of the patient, or of later complication, without mention of misadventure at the time of the procedure
CPT/HCPCS: 99213; G0463

== ENCOUNTER 2025-05-21 16:59 | Emergency (ER) | payer MEDICAID, SELFPAY ==
[2025-05-21 17:00] VITALS: BP 125/88; PULSE 99; RESP 16; TEMP 36.1; O2SAT 97; BMI 24.0
--- NOTE | 2025-05-21 18:55 | ED.RN ---
Pt refused to fill out bite form.
--- NOTE | 2025-05-21 19:46 | RAD_ITS ---
PROCEDURE: HAND MIN 3 VIEWS 05/21/2025 REASON FOR EXAM: DOG BITE anterior 5th metacarpal. TECHNIQUE: Procedure Code: [facility] Modality: DX Procedure: HAND MIN 3 VIEWS Laterality: Right COMPARISON: None. FINDINGS: BONES: No acute fracture or focal osseous lesion. JOINTS: No dislocation. Moderate arthritic changes in the triscaphe joint. SOFT TISSUES: The soft tissues are unremarkable. No radiodense foreign body seen. RAD/Hand Min 3 Views IMPRESSION: NO ACUTE FRACTURE OR DISLOCATION. Reading Location: [id number]
--- NOTE | 2025-05-21 19:55 | EDS_ITS ---
HPI History of Present Illness Chief Complaint: Bite Narrative Narrative: Chief complaint and HPI: 64-year-old male with no significant past medical history presents for evaluation of dog bite to the right hand. Patient states he was bit yesterday evening by his son's dog. Dog is up-to-date on vaccines. States is a pitbull mix. He has an abrasion to the right hypothenar eminence. No laceration. Patient endorses pain at the abrasion site. Up-to-date on tetanus. Review of systems: See HPI Medications: As listed on the chart Allergies: As listed on the chart PFSH: Per chart Vital signs: As listed on the chart. Reviewed. Physical exam: Gen: A&O x3, NAD Head: Normocephalic, atraumatic Eyes: No sclera icterus, conjunctiva clear ENT: Moist mucous membranes CV: Regular rate Resp: Nonlabored respirations Musc: Full range of motion of the right hand, wrist, fingers, thumb. Skin abrasion to the hypothenar eminence status without laceration. No obvious signs of infection. Tender to palpation in this area. Radial/ulnar pulses +2 bilaterally. Good capillary refill. Sensation intact. Compartments soft. Psych: Cooperative, appropriate mood and affect [facility] Medical History (Updated 05/21/25 @ 21:[address] Jayesh Angelo DO) Wears dentures Wears glasses Alcohol use Smoker Rib pain Home Medications ?Medication ?Instructions ?Recorded ?Last Taken ?Type ibuprofen 200 mg tablet (Advil) 200 mg PO Q4H 08/28/24 08/29/24 History doxycycline hyclate 100 mg capsule 100 mg PO DAILY #10 caps 08/31/24 Unknown Rx ciprofloxacin HCl 500 mg tablet 500 mg PO BID 10/11/24 Unknown History gabapentin 100 mg capsule 100 mg PO TID 10/11/24 Unkno wn History amoxicillin 875 mg-potassium 1 tab PO BID 7 days #14 t abs 05/21/25 Unknown Rx clavulanate 125 mg tablet Allergy/AdvReac Type Severity Reaction Status Date / Time No Known Allergies Allergy Verified 05/21/25 17:00 Family History no significant family his Surgical History Inguinal hernia S/P appendectomy Social History Smoking Status: Current every day smoker tobacco type: cigarettes alcohol intake: current alcohol intake frequency: 0-2 drinks per day substance use type: does not use EXAM Physical Exam Const Vital Signs: 05/21/25 17:00 Temperature 97 F L Temperature Source Temporal Pulse Rate 99 Respiratory Rate 16 Blood Pressure 125/88 H Blood Pressure Mean 100 Pulse Ox 97 Oxygen Delivery Method Room Air MDM MDM MDM Narrative Medical decision making narrative: 64-year-old male with no significant past medical history presents for evaluation of dog bite to the right hand. Patient states he was bit yesterday evening by his son's dog. Dog is up-to-date on vaccines. States is a pitbull mix. He has an abrasion to the right hypothenar eminence. No laceration. Patient endorses pain at the abrasion site. Up-to-date on tetanus. See physical exam findings. Given the type of dog and the amount of tenderness in the area will obtain x-ray to rule out fracture versus contusion. Patient does not need any laceration repair. He will need to be placed on antibiotics to prevent infection therefore first dose of Augmentin given. X-ray of the right hand was personally viewed interpreted by me, ED physician. No fracture or dislocation. Radiology in agreement. Patient's pain is likely secondary to contusion. Follow-up with primary care physician. Patient placed on Augmentin. Return precautions explained. He confirmed understand the plan. Patient will discharge home. Impression: 1. Dog bite to the right hand with abrasion 2. Right hand contusion Radiography Diagnostic Testing: Clinical Impression(s) from Imaging Studies Hand X-Ray 05/21/25 19:46 IMPRESSION: NO ACUTE FRACTURE OR DISLOCATION. Reading Location: [facility] Discharge Plan Triage Chief Complaint: Bite ED Provider: Jayesh Angelo Dx/Rx/DC Orders Clinical Impression: Dog bite Instructions: ED Dog Bite Prescriptions: New amoxicillin-pot clavulanate 875-125 mg tablet 1 tab PO BID 7 Days Qty: 14 0RF No Action ibuprofen [Advil] 200 mg tablet 200 mg PO Q4H doxycycline hyclate 100 mg capsule 100 mg PO DAILY Qty: 10 0RF ciprofloxacin HCl 500 mg tablet 500 mg PO BID gabapentin 100 mg capsule 100 mg PO TID Primary Care Provider: Emiliano Palomares Referrals: Shady Santana MD [Med Staff - Active Staff, Family Practice] - 3-5 Days Activity Restrictions/Additional Instructions: You received your first dose of antibiotics here in the emergency department. Continue the rest of the antibiotics. Follow-up with a primary care physician. If you do not have 1 follow-up with the one listed above. Return back to ED if symptoms change or worsen. Keep the wound clean. Print Language: Luxembourgish Disposition Disposition: Home, Self Care
[2025-05-21 21:00] VITALS: BP 116/82; PULSE 70; RESP 18; O2SAT 98
[2025-05-21 22:22] VITALS: BP 116/82; PULSE 69; RESP 18; TEMP 36.1; O2SAT 97
== END 2025-05-21 22:27 | disposition home or self-care (01) ==
PROVIDERS: Emergency Provider Surgery; PCP Surgery Vascular Surgery; Visit Provider Surgery
DX: S61.451A Open bite of right hand, initial encounter (principal); S60.221A Contusion of right hand, initial encounter; W54.0XXA Bitten by dog, initial encounter; Z90.49 Acquired absence of other specified parts of digestive tract; F17.210 Nicotine dependence, cigarettes, uncomplicated
CPT/HCPCS: 73130; 99282